=== PATIENT | male | born 1970 | race Caucasian/White ===

== ENCOUNTER 2016-07-31 01:16 | Emergency (ER) | payer OTHER ==
[2016-07-31] MEDS ORDERED: LIDOCAINE 5% (700 MG) TRANSDERMAL ADH..PATCH TP ONE (01:23)
--- NOTE | 2016-07-31 01:52 | ER Document Report ---
ED General - General Chief Complaint: Back Pain Stated Complaint: BACK PAIN TRAVEL OUTSIDE OF THE [place] IN LAST 30 DAYS: No - HPI Patient complains to provider of: right flank chest wall pain Onset: Last week Notes: Patient coming in for right flank chest wall pain. Patient states fell approximately one week ago. Patient denies any physician assessment until tonight. Patient doesn't do to drinking alcohol. Patient does have a history of alcohol abuse has been evaluated multiple times here in ER for alcohol use. Otherwise patient is alert does smell of EtOH and does look to be acutely intoxicated. Patient is able to ambulate to bathroom prior to my assessment. - Related Data Allergies/Adverse Reactions: No Known Allergies Allergy (Verified 08/05/15 17:39) Past Medical History - Social History Smoking Status: Unknown if Ever Smoked Family History: Reviewed & Not Pertinent, Hypertension - Past Medical History Cardiac Medical History: Reports: Hx Hypertension Psychiatric Medical History: Reports: Hx Depression Traumatic Medical History: Reports: Hx Fractures Past Surgical History: Reports: Hx Orthopedic Surgery - right knee - Immunizations Hx Diphtheria, Pertussis, Tetanus Vaccination: Yes Review of Systems - Review of Systems Constitutional: No symptoms reported EENT: No symptoms reported Cardiovascular: Chest pain - Right chest wall flank pain Respiratory: No symptoms reported Gastrointestinal: No symptoms reported Genitourinary: No symptoms reported Male Genitourinary: No symptoms reported Musculoskeletal: No symptoms reported Skin: No symptoms reported Hematologic/Lymphatic: No symptoms reported Neurological/Psychological: No symptoms reported Physical Exam - Vital signs Vitals: Temp Pulse Resp BP Pulse Ox 97.5 F 97 18 120/73 99 07/31/16 02:30 07/31/16 02:30 07/31/16 02:30 07/31/16 02:30 07/31/16 02:30 Interpretation: Normal - General General appearance: Appears well, Alert - HEENT Head: Normocephalic, Atraumatic Eyes: Normal Pupils: PERRL - Respiratory Respiratory status: No respiratory distress Chest status: Nontender. No: Tender, Chest mass, Ecchymosis Breath sounds: Normal Chest palpation: Normal - Cardiovascular Rhythm: Regular Heart sounds: Normal auscultation Murmur: No - Abdominal Inspection: Normal Distension: No distension Bowel sounds: Normal Tenderness: Nontender Organomegaly: No organomegaly - Back Back: Normal, Nontender - Extremities General upper extremity: Normal inspection, Nontender, Normal color, Normal ROM , Normal temperature General lower extremity: Normal inspection, Nontender, Normal color, Normal ROM , Normal temperature, Normal weight bearing. No: Filiberto's sign - Neurological Neuro grossly intact: Yes Cognition: Normal Orientation: AAOx4 John Coma Scale Eye Opening: Spontaneous [place] Coma Scale Verbal: Oriented [place] Coma Scale Motor: Obeys Commands John Coma Scale Total: 15 Speech: Normal Motor strength normal: LUE, RUE, LLE, RLE Sensory: Normal - Psychological Associated symptoms: Normal affect, Normal mood - Skin Skin Temperature: Warm Skin Moisture: Dry Skin Color: Normal Course - Re-evaluation Re-evalutation: 07/31/16 02:24 X-rays from patient unknown if any acute pathology. Physical examination other than showed the patient is acutely intoxicated with alcohol shows no critical etiology. Patient is ambulated to the bathroom multiple times with assistance. Patient is currently trying to find a ride home. Patient will be discharged home 07/31/16 07:07 - Vital Signs Vital signs: Temp Pulse Resp BP Pulse Ox 97.5 F 97 18 120/73 99 07/31/16 02:30 07/31/16 02:30 07/31/16 02:30 07/31/16 02:30 07/31/16 02:30 Discharge - Discharge Clinical Impression: Rib contusion Qualifiers: Encounter type: initial encounter Laterality: right Qualified Code(s): S20.211A - Contusion of right front wall of thorax, initial encounter Acute alcohol intoxication Qualifiers: Complication of substance-induced condition: uncomplicated Qualified Code(s): F10.120 - Alcohol abuse with intoxication, uncomplicated Condition: Good Disposition: HOME, SELF-CARE Instructions: Ice Packs ([facility]), Warm Packs ([facility]), Acute Alcohol Intoxication ( [facility]) Additional Instructions: You may take Tylenol and Motrin for pain control. He may also apply the patches for pain control as well. Return to ER symptoms worsen. Prescriptions: Ibuprofen [Motrin 600 Mg Tablet] 600 mg PO TID #15 tablet Lidocaine [Lidoderm 5% (700 mg) Transdermal Patch] 1 patch TP DAILY #30 adh..patch Referrals: [facility] [Primary Care Provider] - Follow up in 3-5 days
[2016-07-31 04:06] VITALS: BP 120/73
== END 2016-07-31 04:04 | disposition home or self-care (01) ==
LOC: ER 01:16
DX: S20.211A Contusion of right front wall of thorax, initial encounter (principal); W19.XXXA Unspecified fall, initial encounter; F10.120 Alcohol abuse with intoxication, uncomplicated; R07.89 Other chest pain; I10 Essential (primary) hypertension
CPT/HCPCS: 99283

== ENCOUNTER 2016-08-05 06:44 | Emergency (ER) | payer OTHER ==
[2016-08-05 07:18] VITALS: BP 143/89
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
[2016-08-05 07:40] LABS: ALANINE AMINOTRANSFERASE 40 U/L (21-72); ALBUMIN 5.1 g/dL (3.5-5.0); ALCOHOL 217 mg/dL (NONE DETECTED); ALKALINE PHOSPHATASE 169 U/L (38-126); ASPARTATE AMINO TRANSFERASE 29 U/L (17-59); BILIRUBIN,TOTAL 0.5 mg/dL (0.2-1.3); BLOOD UREA NITROGEN 8 mg/dL (7-20); CALCIUM 9.8 mg/dL (8.4-10.2); CARBON DIOXIDE 20 mmol/L (22-30); CREATINE KINASE 72 U/L (55-170); CREATININE RESULT 0.86 mg/dL (0.52-1.25); GLUCOSE 139 mg/dL (75-110); LIPASE 160.2 U/L (23-300); POTASSIUM 4.8 mmol/L (3.6-5.0); URIC ACID 11.1 mg/dL (3.5-8.5)
[2016-08-05 07:41] LABS: ABSOLUTE BASOPHILS # (AUTO) 0.1 10^3/uL (0.0-0.2); ABSOLUTE EOSINOPHILS # (AUTO) 0.4 10^3/uL (0.0-0.6); ABSOLUTE LYMPHOCYTES (AUTO) 3.7 10^3/uL (0.5-4.7); ABSOLUTE MONOCYTES (AUTO) 0.8 10^3/uL (0.1-1.4); ABSOLUTE NEUT (AUTO) 5.5 10^3/uL (1.7-8.2); BASOPHILS % (AUTO) 0.6 % (0-2); EOSINOPHILS % (AUTO) 4.1 % (0-6); HEMATOCRIT 47.7 % (37.9-51.0); HEMOGLOBIN 15.7 g/dL (13.5-17.0); HGB HCT DIFFERENCE -0.6; LYMPHOCYTES % (AUTO) 35.1 % (13-45); MEAN CORPUSCULAR HEMOGLOBIN 29.3 pg (27.0-33.4); MEAN CORPUSCULAR VOLUME 89 fl (80-97); MONOCYTES % (AUTO) 7.5 % (3-13); RED BLOOD COUNT 5.38 10^6/uL (4.35-5.55); SEGMENTED NEUTROPHILS % (AUTO) 52.7 % (42-78); WHITE BLOOD COUNT 10.4 10^3/uL (4.0-10.5)
[2016-08-05 07:50] LABS: CHLORIDE 100 mmol/L (98-107); SODIUM 140.5 mmol/L (137-145)
[2016-08-05 07:56] LABS: ANION GAP 21 (5-19)
[2016-08-05 08:08] LABS: CREATINE KINASE MB 0.38 ng/mL (<4.55)
[2016-08-05 08:11] LABS: TROPONIN I < 0.012 ng/mL
== END 2016-08-05 07:33 | disposition left against medical advice (07) ==
LOC: ER 06:44
DX: F10.10 Alcohol abuse, uncomplicated (principal); I10 Essential (primary) hypertension
CPT/HCPCS: 36415; 80053; 80307; 82550; 82553; 83690; 83735; 84484; 84550; 85025; 99281

== ENCOUNTER 2016-08-08 17:03 | Emergency (ER) | payer OTHER ==
[2016-08-08 17:48] VITALS: BP 130/80
--- NOTE | 2016-08-08 18:41 | EKG REPORT ---
SEVERITY:- NORMAL ECG - SINUS RHYTHM : Confirmed by: Lluvia Florian MD 08-Aug-2016 18:40:22
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
== END 2016-08-08 19:05 | disposition home or self-care (01) ==
LOC: ER 17:03
DX: S29.9XXA Unspecified injury of thorax, initial encounter (principal); R07.89 Other chest pain; R05 Cough; X58.XXXA Exposure to other specified factors, initial encounter; F17.210 Nicotine dependence, cigarettes, uncomplicated
CPT/HCPCS: 71020; 93005; 93010; 99285

== ENCOUNTER 2016-08-09 03:46 | Emergency (ER) | payer OTHER ==
[2016-08-09 04:26] LABS: ABSOLUTE BASOPHILS # (AUTO) 0.1 10^3/uL (0.0-0.2); ABSOLUTE EOSINOPHILS # (AUTO) 0.1 10^3/uL (0.0-0.6); ABSOLUTE LYMPHOCYTES (AUTO) 2.3 10^3/uL (0.5-4.7); ABSOLUTE MONOCYTES (AUTO) 0.8 10^3/uL (0.1-1.4); ABSOLUTE NEUT (AUTO) 7.2 10^3/uL (1.7-8.2); EOSINOPHILS % (AUTO) 1.3 % (0-6); HEMATOCRIT 44.6 % (37.9-51.0); HEMOGLOBIN 14.7 g/dL (13.5-17.0); HGB HCT DIFFERENCE -0.5; LYMPHOCYTES % (AUTO) 21.5 % (13-45); MEAN CORPUSCULAR HEMOGLOBIN 28.8 pg (27.0-33.4); MEAN CORPUSCULAR VOLUME 87 fl (80-97); MONOCYTES % (AUTO) 7.6 % (3-13); RED BLOOD COUNT 5.11 10^6/uL (4.35-5.55); RED CELL DISTRIBUTION WIDTH 14.2 % (11.5-14.0); SEGMENTED NEUTROPHILS % (AUTO) 68.6 % (42-78); WHITE BLOOD COUNT 10.5 10^3/uL (4.0-10.5)
[2016-08-09 04:41] LABS: ALANINE AMINOTRANSFERASE 31 U/L (21-72); ALBUMIN 4.2 g/dL (3.5-5.0); ALKALINE PHOSPHATASE 157 U/L (38-126); ANION GAP 19 (5-19); ASPARTATE AMINO TRANSFERASE 36 U/L (17-59); BILIRUBIN,TOTAL 0.6 mg/dL (0.2-1.3); BLOOD UREA NITROGEN 7 mg/dL (7-20); CALCIUM 8.5 mg/dL (8.4-10.2); CARBON DIOXIDE 20 mmol/L (22-30); CHLORIDE 99 mmol/L (98-107); CREATINE KINASE 107 U/L (55-170); CREATININE RESULT 0.68 mg/dL (0.52-1.25); GLUCOSE 171 mg/dL (75-110); POTASSIUM 3.8 mmol/L (3.6-5.0); SODIUM 137.9 mmol/L (137-145); TOTAL PROTEIN 6.7 g/dL (6.3-8.2)
[2016-08-09 04:52] LABS: CREATINE KINASE MB 0.59 ng/mL (<4.55)
[2016-08-09 04:53] LABS: TROPONIN I < 0.012 ng/mL
[2016-08-09] MEDS ORDERED: ASPIRIN 81 MG TABLET, CHEWABLE PO ONE (04:56)
[2016-08-09] MEDS ORDERED: ONDANSETRON HCL INJ/PF 4 MG/2 ML SDV IV ONE (06:40)
[2016-08-09] MEDS: NORMAL SALINE 1000 ML 1,000 ML IV PRN ×3 (06:46→07:35)
--- NOTE | 2016-08-09 07:16 | ER Document Report ---
ED General - General Chief Complaint: Chest Pain Stated Complaint: CHEST PAIN Mode of Arrival: Medic Information source: Patient, H Records Notes: 46-year-old male chronic alcoholic who is now been here multiple times in the past week with complaints of chest pain presents again with chest pain. Patient notes that he went home after being discharged and drank 4 40 ounce beers. Patient notes chest pain is sharp in nature. Patient admits that he is on alcoholic binge because he obtain money and just drink it all away TRAVEL OUTSIDE OF THE [place] IN LAST 30 DAYS: No - HPI Onset: Last week Onset/Duration: Intermittent Quality of pain: Sharp Severity: Mild Pain Level: 1 Associated symptoms: Chest pain Exacerbated by: Denies Relieved by: Denies Similar symptoms previously: Yes Recently seen / treated by doctor: Yes - Related Data Allergies/Adverse Reactions: No Known Allergies Allergy (Verified 08/05/15 17:39) Past Medical History - Social History Smoking Status: Current Every Day Smoker Cigarette use (# per day): No Chew tobacco use (# tins/day): No Smoking Education Provided: No Family History: Hypertension - Past Medical History Cardiac Medical History: Reports: Hx Hypertension Psychiatric Medical History: Reports: Hx Depression Traumatic Medical History: Reports: Hx Fractures Past Surgical History: Reports: Hx Orthopedic Surgery - right knee - Immunizations Hx Diphtheria, Pertussis, Tetanus Vaccination: Yes Review of Systems - Review of Systems Notes: REVIEW OF SYSTEMS: CONSTITUTIONAL : Denies fever, chills, or sweats. Denies recent illness. EENT: Denies eye, ear, throat, or mouth pain or symptoms. Denies nasal or sinus congestion or discharge. Denies throat, tongue, or mouth swelling or difficulty swallowing. CARDIOVASCULAR: Admits chest pain RESPIRATORY: Denies cough, cold, or chest congestion. Denies shortness of breath, difficulty breathing, or wheezing. GASTROINTESTINAL: Denies abdominal pain or distention. Denies nausea, vomiting , or diarrhea. Denies blood in vomitus, stools, or per rectum. Denies black, tarry stools. Denies constipation. GENITOURINARY: Denies difficulty urinating, painful urination, burning, frequency, blood in urine, or discharge. MUSCULOSKELETAL: Denies back or neck pain or stiffness. Denies joint pain or swelling. SKIN: Denies rash, lesions or sores. HEMATOLOGIC : Denies easy bruising or bleeding. LYMPHATIC: Denies swollen, enlarged glands. NEUROLOGICAL: Denies confusion or altered mental status. Denies passing out or loss of consciousness. Denies dizziness or lightheadedness. Denies headache. Denies weakness or paralysis or loss of use of either side. Denies problems with gait or speech. Denies sensory loss, numbness, or tingling. Denies seizures. PSYCHIATRIC: Denies anxiety or stress. Denies depression, suicidal ideation, or homicidal ideation. ALL OTHER SYSTEMS REVIEWED AND NEGATIVE. Dictation was performed using [employer] voice recognition software PHYSICAL EXAMINATION: GENERAL: Well-appearing, well-nourished and in no acute distress. HEAD: Atraumatic, normocephalic. EYES: Pupils equal round and reactive to light, extraocular movements intact, sclera anicteric, conjunctiva are normal. ENT: Nares patent, oropharynx clear without exudates. Moist mucous membranes. NECK: Normal range of motion, supple without lymphadenopathy LUNGS: Breath sounds clear to auscultation bilaterally and equal. No wheezes rales or rhonchi. HEART: Tachycardic in the 120s intermittently ABDOMEN: Soft, nontender, nondistended abdomen. No guarding, no rebound. No masses appreciated. Musculoskeletal: Normal range of motion, no pitting or edema. No cyanosis. NEUROLOGICAL: Cranial nerves grossly intact. Normal speech, normal gait. Normal sensory, motor exams PSYCH: Normal mood, normal affect. SKIN: Warm, Dry, normal turgor, no rashes or lesions noted. Physical Exam - Vital signs Vitals: Temp 98.6 F 08/09/16 03:57 Course - Re-evaluation Re-evalutation: 08/09/16 07:16 I have no suspicion for any cardiac events, patient has had cardiac enzymes trended multiple times over the past week, of more concern is his alcohol abuse. Patient is tachycardic here is not withdrawing at this time but eventually will start withdrawing. He will be given IV fluids. 08/09/16 09:19 Patient's heart rate has improved to 107, I will discharge him since he is acting at his baseline is ambulating with no difficulty has no neurological deficits and appears to be chronically intoxicated After performing a Medical Screening Examination, I estimate there is LOW risk for RUPTURED ESOPHAGUS, PNEUMOTHORAX, PULMONARY EMBOLISM, ACUTE CORONARY SYNDROME, OR THORACIC AORTIC DISSECTION, thus I consider the discharge disposition reasonable. The patient and I have discussed the diagnosis and risks , and we agree with discharging home with close follow-up. We also discussed returning to the Emergency Department immediately if new or worsening symptoms occur. We have discussed the symptoms which are most concerning (e.g., bloody sputum, worsening pain or shortness of breath) that necessitate immediate return. - Vital Signs Vital signs: Temp Pulse Resp BP Pulse Ox 98.6 F 20 160/86 H 97 08/09/16 03:57 08/09/16 09:01 08/09/16 09:01 08/09/16 09:01 - Laboratory Result Diagrams: 08/09/16 04:00 08/09/16 04:00 Laboratory results interpreted by me: 08/09/16 08/09/16 04:00 04:00 RDW 14.2 H Carbon Dioxide 20 L Glucose 171 H Alkaline Phosphatase 157 H - Diagnostic Test Radiology reviewed: Image reviewed, Reports reviewed - EKG Interpretation by Me EKG shows normal: Sinus rhythm, [place], Intervals, QRS Complexes When compared to previous EKG there are: No significant change Discharge - Discharge Clinical Impression: Alcohol abuse, Chest wall pain Alcohol intoxication Qualifiers: Complication of substance-induced condition: uncomplicated Qualified Code(s): F10.120 - Alcohol abuse with intoxication, uncomplicated Hypertension Qualifiers: Hypertension type: essential hypertension Qualified Code(s): I10 - Essential ( primary) hypertension Condition: Stable Disposition: HOME, SELF-CARE Instructions: Chest Pain of Unclear Cause ([facility]) Additional Instructions: You must decrease your alcohol abuse You must continue your home medications Return immediately if there are any other concerns
[2016-08-09 10:35] VITALS: BP 150/82
--- NOTE | 2016-08-09 14:56 | EKG REPORT ---
SEVERITY:- OTHERWISE NORMAL ECG - SINUS TACHYCARDIA : Confirmed by: Lluvia Florian MD 09-Aug-2016 14:55:27
== END 2016-08-09 10:37 | disposition home or self-care (01) ==
LOC: ER 03:46
DX: R07.89 Other chest pain (principal); F10.229 Alcohol dependence with intoxication, unspecified; F17.200 Nicotine dependence, unspecified, uncomplicated; I10 Essential (primary) hypertension; R00.0 Tachycardia, unspecified
CPT/HCPCS: 93005; 99284; 96361; 96374; 36415; 82553; 80307; 82550; 85025; 80053; 84484; 71010; 93010; J2405; J7030

== ENCOUNTER 2016-09-03 06:21 | Emergency (ER) | payer OTHER ==
[2016-09-03 07:04] VITALS: BP 124/84
[2016-09-03 07:13] LABS: ABSOLUTE BASOPHILS # (AUTO) 0.1 10^3/uL (0.0-0.2); ABSOLUTE EOSINOPHILS # (AUTO) 0.2 10^3/uL (0.0-0.6); ABSOLUTE LYMPHOCYTES (AUTO) 2.9 10^3/uL (0.5-4.7); ABSOLUTE MONOCYTES (AUTO) 1.3 10^3/uL (0.1-1.4); ABSOLUTE NEUT (AUTO) 2.7 10^3/uL (1.7-8.2); BASOPHILS % (AUTO) 1.3 % (0-2); EOSINOPHILS % (AUTO) 3.4 % (0-6); HEMATOCRIT 45.9 % (37.9-51.0); HEMOGLOBIN 15.7 g/dL (13.5-17.0); HGB HCT DIFFERENCE 1.2; LYMPHOCYTES % (AUTO) 40.1 % (13-45); MEAN CORPUSCULAR HEMOGLOBIN 29.2 pg (27.0-33.4); MEAN CORPUSCULAR HGB CONC 34.2 g/dL (32.0-36.0); MEAN CORPUSCULAR VOLUME 86 fl (80-97); MONOCYTES % (AUTO) 17.6 % (3-13); RED BLOOD COUNT 5.36 10^6/uL (4.35-5.55); RED CELL DISTRIBUTION WIDTH 13.9 % (11.5-14.0); SEGMENTED NEUTROPHILS % (AUTO) 37.6 % (42-78); WHITE BLOOD COUNT 7.2 10^3/uL (4.0-10.5)
[2016-09-03 07:17] LABS: PROTHROMBIN TIME 12.8 SEC (11.4-15.4)
[2016-09-03 07:30] LABS: ALANINE AMINOTRANSFERASE 53 U/L (21-72); ALBUMIN 4.8 g/dL (3.5-5.0); ALCOHOL 299 mg/dL (NONE DETECTED); ALKALINE PHOSPHATASE 132 U/L (38-126); ANION GAP 18 (5-19); ASPARTATE AMINO TRANSFERASE 49 U/L (17-59); BILIRUBIN,TOTAL 0.4 mg/dL (0.2-1.3); BLOOD UREA NITROGEN 12 mg/dL (7-20); CALCIUM 9.1 mg/dL (8.4-10.2); CARBON DIOXIDE 18 mmol/L (22-30); CHLORIDE 102 mmol/L (98-107); CREATINE KINASE 85 U/L (55-170); CREATININE RESULT 0.77 mg/dL (0.52-1.25); GLUCOSE 155 mg/dL (75-110); LIPASE 130.6 U/L (23-300); SODIUM 138.4 mmol/L (137-145); TOTAL PROTEIN 7.4 g/dL (6.3-8.2)
[2016-09-03 07:41] LABS: CREATINE KINASE MB 0.46 ng/mL (<4.55); TROPONIN I < 0.012 ng/mL
--- NOTE | 2016-09-03 10:38 | EKG REPORT ---
SEVERITY:- OTHERWISE NORMAL ECG - SINUS TACHYCARDIA : Confirmed by: Meli Jennings 03-Sep-2016 10:36:48
--- NOTE | 2016-09-03 14:16 | ER Document Report ---
ED General - General Chief Complaint: Chest Pain Stated Complaint: CHEST PAIN TRAVEL OUTSIDE OF THE [place] IN LAST 30 DAYS: No - HPI Patient complains to provider of: chest pain Notes: Patient coming in by EMS with acute alcohol vesication combative complaining of intermittent chest pain. Patient has had multiple visits to the ER for acute alcohol vesication chest pain. Patient states chest pain similar to that in the past. Patient was very combative towards staff initially however did come down after security arrived in bedside. EKG was performed blood work performed. Upon my evaluation patient is sitting of yesterday requesting to go smoke a cigarette. Spent patient that we would need to evaluate him for his chest pain patient agrees for examination. Patient is alert and oriented 3 - Related Data Allergies/Adverse Reactions: No Known Allergies Allergy (Verified 08/05/15 17:39) Past Medical History - Social History Smoking Status: Unknown if Ever Smoked Family History: Hypertension - Past Medical History Cardiac Medical History: Reports: Hx Hypertension Psychiatric Medical History: Reports: Hx Depression Traumatic Medical History: Reports: Hx Fractures Past Surgical History: Reports: Hx Orthopedic Surgery - right knee - Immunizations Hx Diphtheria, Pertussis, Tetanus Vaccination: Yes Review of Systems - Review of Systems Constitutional: No symptoms reported EENT: No symptoms reported Cardiovascular: Chest pain Respiratory: No symptoms reported Gastrointestinal: No symptoms reported Genitourinary: No symptoms reported Male Genitourinary: No symptoms reported Musculoskeletal: No symptoms reported Skin: No symptoms reported Hematologic/Lymphatic: No symptoms reported Neurological/Psychological: Other - Alcoholism -: Yes All other systems reviewed and negative Physical Exam - Vital signs Vitals: Temp Resp BP Pulse Ox 98.2 F 16 140/89 H 98 09/03/16 06:32 09/03/16 06:32 09/03/16 06:32 09/03/16 06:32 Interpretation: Normal - General General appearance: Appears well, Alert - HEENT Head: Normocephalic, Atraumatic Eyes: Normal Pupils: PERRL - Respiratory Respiratory status: No respiratory distress Chest status: Nontender Breath sounds: Normal Chest palpation: Normal - Cardiovascular Rhythm: Regular Heart sounds: Normal auscultation Murmur: No - Abdominal Inspection: Normal Distension: No distension Bowel sounds: Normal Tenderness: Nontender Organomegaly: No organomegaly - Back Back: Normal, Nontender - Extremities General upper extremity: Normal inspection, Nontender, Normal color, Normal ROM , Normal temperature General lower extremity: Normal inspection, Nontender, Normal color, Normal ROM , Normal temperature, Normal weight bearing. No: Filiberto's sign - Neurological Neuro grossly intact: Yes Cognition: Normal Orientation: AAOx4 [place] Coma Scale Eye Opening: Spontaneous John Coma Scale Verbal: Oriented John Coma Scale Motor: Obeys Commands [place] Coma Scale Total: 15 Speech: Normal Motor strength normal: LUE, RUE, LLE, RLE Sensory: Normal - Psychological Associated symptoms: Normal affect, Normal mood - Skin Skin Temperature: Warm Skin Moisture: Dry Skin Color: Normal Course - Re-evaluation Re-evalutation: 09/03/16 14:15 After examination patient is requesting to leave against medical advise. Patient is alert and oriented 3 although stating he is drink alcohol. Patient at this time is able to make medical decisions. Patient looks to be clinically sober. Patient has a chronic alcoholic. Patient requesting to go outside and smoke. Encouraged patient states further workup explained risk and benefits patient states understanding patient's stay would rather go outside and smoke. Patient signed out AGAINST MEDICAL ADVICE - Vital Signs Vital signs: Temp Pulse Resp BP Pulse Ox 98.2 F 16 124/84 95 09/03/16 06:32 09/03/16 06:32 09/03/16 06:45 09/03/16 06:45 - Laboratory Result Diagrams: 09/03/16 06:37 09/03/16 06:37 Laboratory results interpreted by me: 09/03/16 09/03/16 06:37 06:37 Seg Neutrophils % 37.6 L Monocytes % 17.6 H Carbon Dioxide 18 L Glucose 155 H Alkaline Phosphatase 132 H Discharge - Discharge Clinical Impression: Alcohol intoxication Qualifiers: Complication of substance-induced condition: with unspecified complication Qualified Code(s): F10.129 - Alcohol abuse with intoxication, unspecified Chest pain Qualifiers: Chest pain type: unspecified Qualified Code(s): R07.9 - Chest pain, unspecified Condition: Stable Disposition: ELOPED
--- NOTE | 2016-09-03 21:54 | EKG REPORT ---
SEVERITY:- OTHERWISE NORMAL ECG - SINUS TACHYCARDIA : Confirmed by: Meli Jennings 03-Sep-2016 21:53:12
== END 2016-09-03 07:02 | disposition left against medical advice (07) ==
LOC: ER 06:21
DX: R07.9 Chest pain, unspecified (principal); F10.229 Alcohol dependence with intoxication, unspecified; I10 Essential (primary) hypertension; F17.200 Nicotine dependence, unspecified, uncomplicated; Z53.29 Procedure and treatment not carried out because of patient's decision for other reasons
CPT/HCPCS: 36415; 80053; 80307; 82550; 82553; 83690; 84484; 85025; 85610; 93005; 93010; 99285

== ENCOUNTER 2016-09-03 09:52 | Emergency (ER) | payer OTHER ==
--- NOTE | 2016-09-03 10:16 | ER Document Report ---
ED Cardiac - General Stated Complaint: CHEST PAIN Mode of Arrival: Medic Information source: Patient, Emergency Med Personnel TRAVEL OUTSIDE OF THE [place] IN LAST 30 DAYS: No - HPI Patient complains to provider of: Chest pain Similar symptoms previously: Yes Recently seen / treated by doctor: Yes - JENIFER Tovar, EARLIER THIS DATE - Related Data Allergies/Adverse Reactions: No Known Allergies Allergy (Verified 08/05/15 17:39) Past Medical History - General Information source: Patient - Social History Smoking Status: Current Every Day Smoker Cigarette use (# per day): Yes Smoking Education Provided: No Family History: Hypertension - Past Medical History Cardiac Medical History: Reports: Hx Hypertension Psychiatric Medical History: Reports: Hx Depression Traumatic Medical History: Reports: Hx Fractures Past Surgical History: Reports: Hx Orthopedic Surgery - right knee - Immunizations Hx Diphtheria, Pertussis, Tetanus Vaccination: Yes Physical Exam - Vital signs Notes: Patient left the department AGAINST MEDICAL ADVICE, did not stay for evaluation and exam. Course - Re-evaluation Re-evalutation: 09/03/16 10:13 Shortly after arrival, the patient was was observed smoking a cigarette in room 17. He was forced to surrender the cigarette, whereupon he stated he was going to leave the department AGAINST MEDICAL ADVICE. He appeared to be alert and oriented, and cognizant of the fact that failure to undergo a complete evaluation of his chest pain could result in serious or even lethal consequences. - EKG Interpretation by Me EKG shows normal: Sinus rhythm, [place], Intervals, QRS Complexes, ST-T Waves Rate: Tachycardia Discharge - Discharge Clinical Impression: Chest pain Condition: Good Disposition: AGAINST MEDICAL ADVICE
[2016-09-03 10:26] VITALS: BP 141/93
== END 2016-09-03 10:11 | disposition left against medical advice (07) ==
LOC: ER 09:52
DX: R07.9 Chest pain, unspecified (principal); F17.210 Nicotine dependence, cigarettes, uncomplicated; I10 Essential (primary) hypertension; R00.0 Tachycardia, unspecified; Z53.29 Procedure and treatment not carried out because of patient's decision for other reasons
CPT/HCPCS: 99284

== ENCOUNTER 2016-09-03 11:59 | Emergency (ER) | payer OTHER ==
--- NOTE | 2016-09-03 14:21 | ER Document Report ---
ED General - General Stated Complaint: CHEST PAIN TRAVEL OUTSIDE OF THE [place] IN LAST 30 DAYS: No - HPI Patient complains to provider of: chest pain Notes: This is now the patient's third visit today patient now coming in via EMS escorted by the local law enforcement. I was notified by the nursing staff that the patient is requesting to sign out AGAINST MEDICAL ADVICE and to leave with law enforcement. - Related Data Allergies/Adverse Reactions: No Known Allergies Allergy (Verified 08/05/15 17:39) Past Medical History - Social History Smoking Status: Unknown if Ever Smoked Family History: Hypertension - Past Medical History Cardiac Medical History: Reports: Hx Hypertension Psychiatric Medical History: Reports: Hx Depression Traumatic Medical History: Reports: Hx Fractures Past Surgical History: Reports: Hx Orthopedic Surgery - right knee - Immunizations Hx Diphtheria, Pertussis, Tetanus Vaccination: Yes Review of Systems - Review of Systems -: Yes ROS unobtainable due to patient's medical condition Course - Re-evaluation Re-evalutation: 09/03/16 14:19 This is the third time the patient has came to the ER today. Patient again has complaints of chest pain. I was notified by the nursing staff that the patient is with local law enforcement and is refusing any treatment here in the ER and wishes to sign out AGAINST MEDICAL ADVICE. Patient understands that he will be leaving with law enforcement Patient was not formally evaluated by this physician. I was only notified by nursing staff. Patient had left with law enforcement prior to me being able to evaluate the patient. No physical examination was performed no face to face history of present illness was obtained from the patient Patient did sign AMA forms from the nurse Discharge - Discharge Disposition: AGAINST MEDICAL ADVICE
== END 2016-09-03 12:09 | disposition left against medical advice (07) ==
LOC: ER 11:59
DX: R07.9 Chest pain, unspecified (principal); I10 Essential (primary) hypertension; Z53.20 Procedure and treatment not carried out because of patient's decision for unspecified reasons
CPT/HCPCS: 99281

== ENCOUNTER 2016-09-29 09:33 | Emergency (ER) | payer OTHER ==
[2016-09-29 10:55] LABS: ABSOLUTE BASOPHILS # (AUTO) 0.1 10^3/uL (0.0-0.2); ABSOLUTE EOSINOPHILS # (AUTO) 0.2 10^3/uL (0.0-0.6); ABSOLUTE LYMPHOCYTES (AUTO) 3.7 10^3/uL (0.5-4.7); ABSOLUTE MONOCYTES (AUTO) 0.6 10^3/uL (0.1-1.4); ABSOLUTE NEUT (AUTO) 5.8 10^3/uL (1.7-8.2); BASOPHILS % (AUTO) 1.1 % (0-2); EOSINOPHILS % (AUTO) 1.5 % (0-6); HEMATOCRIT 45.2 % (37.9-51.0); HEMOGLOBIN 15.9 g/dL (13.5-17.0); HGB HCT DIFFERENCE 2.5; LYMPHOCYTES % (AUTO) 35.7 % (13-45); MEAN CORPUSCULAR HEMOGLOBIN 29.7 pg (27.0-33.4); MEAN CORPUSCULAR HGB CONC 35.1 g/dL (32.0-36.0); MEAN CORPUSCULAR VOLUME 85 fl (80-97); MONOCYTES % (AUTO) 5.7 % (3-13); RED BLOOD COUNT 5.35 10^6/uL (4.35-5.55); RED CELL DISTRIBUTION WIDTH 13.9 % (11.5-14.0); WHITE BLOOD COUNT 10.3 10^3/uL (4.0-10.5)
[2016-09-29 10:55] LABS: APPEARANCE,URINE CLEAR; BILIRUBIN,URINE NEGATIVE (NEGATIVE); GLUCOSE, URINE 50 mg/dL (NEGATIVE); KETONES,URINE TRACE mg/dL (NEGATIVE); LEUKOCYTE ESTERASE,URINE NEGATIVE (NEGATIVE); NITRITE,URINE NEGATIVE (NEGATIVE); PROTEIN,URINE NEGATIVE (NEGATIVE); URINE SPECIFIC GRAVITY 1.004; UROBILINOGEN,URINE NEGATIVE mg/dL (<2.0)
--- NOTE | 2016-09-29 11:08 | ER Document Report ---
ED General - General Chief Complaint: Psych Problem Stated Complaint: IVC WITH PAPERS Mode of Arrival: Ambulatory Information source: Patient, Law Enforcement, [facility] Records Notes: This is a 46-year-old male with a history of chronic alcoholism who presents for evaluation after his mother took out IVC paperwork on him. Apparently the patient has been on a drinking binge for the past week. Patient states that he was sober for 3 weeks prior to that but after getting into an argument with his family decided to drink again. At this time he is denying any suicidal or homicidal ideation and states he just wants to go home to sleep. He denies any fevers chills or recent illness. He denies any pain. He is conversant and cooperative with the interview. TRAVEL OUTSIDE OF THE [place] IN LAST 30 DAYS: No - Related Data Allergies/Adverse Reactions: No Known Allergies Allergy (Verified 09/29/16 10:16) Past Medical History - General Information source: [facility] Records - Social History Smoking Status: Current Every Day Smoker Frequency of alcohol use: Heavy Family History: Hypertension - Past Medical History Cardiac Medical History: Reports: Hx Hypertension Psychiatric Medical History: Reports: Hx Depression Traumatic Medical History: Reports: Hx Fractures Past Surgical History: Reports: Hx Orthopedic Surgery - right knee - Immunizations Hx Diphtheria, Pertussis, Tetanus Vaccination: Yes Review of Systems - Review of Systems Constitutional: No symptoms reported. denies: Chills, Fever EENT: No symptoms reported Cardiovascular: No symptoms reported. denies: Chest pain, Dyspnea Respiratory: No symptoms reported. denies: Cough, Short of breath Gastrointestinal: No symptoms reported. denies: Abdominal pain, Diarrhea, Vomiting Genitourinary: denies: Burning Musculoskeletal: No symptoms reported Skin: No symptoms reported Neurological/Psychological: No symptoms reported Physical Exam - Vital signs Vitals: Temp Pulse Resp BP Pulse Ox 98.3 F 95 18 140/83 H 96 09/29/16 10:00 09/29/16 10:00 09/29/16 10:00 09/29/16 10:00 09/29/16 10:00 - Notes Notes: PHYSICAL EXAMINATION: GENERAL: well-nourished and in no acute distress, smells of ETOH, conversant and cooperative. HEAD: Atraumatic, normocephalic. EYES: Pupils equal round and reactive to light, extraocular movements intact, sclera anicteric, conjunctiva are normal. ENT: nares patent, oropharynx clear without exudates. Moist mucous membranes. NECK: Normal range of motion, supple without lymphadenopathy LUNGS: Breath sounds clear to auscultation bilaterally and equal. No wheezes rales or rhonchi. HEART: Regular rate and rhythm without murmurs ABDOMEN: Soft, nontender, normoactive bowel sounds. No guarding, no rebound. No masses appreciated. EXTREMITIES: Normal range of motion, no pitting or edema. NEUROLOGICAL: Cranial nerves grossly intact. Alert and oriented 4. No gross focal motor or sensory deficit appreciated PSYCH: Normal mood, normal affect. SKIN: Warm, Dry, normal turgor, no rashes or lesions noted. Course - Re-evaluation Re-evalutation: 09/29/16 14:51 Patient has remained hemodynamically stable and cooperative in the emergency department. He has been evaluated by the psychiatry service and at this time there is no criteria for involuntary commitment. His papers are rescinded. He already [place] resources [place] and agrees to follow up with mental health services. Return precautions were discussed. He is very comfortable with this plan. Again he denies any suicidal or homicidal ideation. - Vital Signs Vital signs: Temp Pulse Resp BP Pulse Ox 98.3 F 95 18 140/83 H 96 09/29/16 10:00 09/29/16 10:00 09/29/16 10:00 09/29/16 10:00 09/29/16 10:00 - Laboratory Result Diagrams: 09/29/16 10:28 09/29/16 10:28 Laboratory results interpreted by me: 09/29/16 09/29/16 10:16 10:28 Sodium 136.3 L Chloride 93 L Anion Gap 20 H Glucose 167 H Alkaline Phosphatase 150 H Total Protein 8.4 H Albumin 5.2 H Urine Glucose (UA) 50 H Urine Ketones TRACE H Urine Blood SMALL H - EKG Interpretation by Me Additional EKG results interpreted by me: 09/29/16 14:54 EKG at 1034 demonstrates normal sinus rhythm with a rate of 90. Normal QRS and QTc intervals. There are no ST segment depressions or elevations. Discharge - Discharge Clinical Impression: Alcohol intoxication Condition: Stable Disposition: HOME, SELF-CARE Additional Instructions: ACUTE ALCOHOL INTOXICATION and ALCOHOL ABUSE: Your evaluation revealed very high levels of alcohol. You can from drinking a large amount of alcohol rapidly! Further, there's the risk of falls , traffic accidents, and fights. A high portion (about 50 percent) of the serious injuries seen in hospital emergency rooms are caused by alcohol. Alcohol overdosage is usually due to an underlying emotional or psychiatric problem. You may benefit from counselling. If "binge" drinking is an ongoing problem for you, or if you drink ANY AMOUNT of alcohol EVERY day, you most likely have a tendency to alcoholism. You should avoid alcohol totally. We can refer you for treatment. Persons with alcohol problems are often also prone to other addictions -- you should discuss any use of medications or drugs with the doctor. You should be watched at home for the next several hours by someone who has not been drinking. Get extra fluids for the next 24 hours. Call the doctor if there is repeated vomiting, increasing headache, decreasing level of alertness, or any other worsening. CHRONIC ALCOHOLISM and ALCOHOL ABUSE: Your evaluation reveals evidence of chronic alcoholism, an addiction to alcohol. The tendency to alcoholism may be inherited. Chronic use of alcohol weakens muscles, causes fatty deposits in the liver , damages the stomach, makes you more prone to infections, and can cause defects in unborn children. In the long run, brain atrophy and cirrhosis of the liver result. You are also at greater risk for certain types of cancer, such as cancer of the mouth, throat, stomach, and liver. Counselling services are available to help you. In-hospital treatment programs often help. Support groups such as Alcoholics Anonymous can be very useful in beating this addiction. Your physician can make a referral for you. As alcoholics often are prone to other addictions, you should discuss your use of any other medications with the doctor. FOLLOW-UP CARE: If you have been referred to a physician for follow-up care, call the physician s office for an appointment as you were instructed or within the next two days. If you experience worsening or a significant change in your symptoms, notify the physician immediately or return to the Emergency Department at any time for re-evaluation.
[2016-09-29 11:14] LABS: ALANINE AMINOTRANSFERASE 39 U/L (21-72); ALBUMIN 5.2 g/dL (3.5-5.0); ALCOHOL 282 mg/dL (NONE DETECTED); ALKALINE PHOSPHATASE 150 U/L (38-126); ASPARTATE AMINO TRANSFERASE 49 U/L (17-59); BILIRUBIN,TOTAL 0.8 mg/dL (0.2-1.3); BLOOD UREA NITROGEN 10 mg/dL (7-20); CALCIUM 10.2 mg/dL (8.4-10.2); CARBON DIOXIDE 23 mmol/L (22-30); CHLORIDE 93 mmol/L (98-107); CREATININE RESULT 0.61 mg/dL (0.52-1.25); GLUCOSE 167 mg/dL (75-110); MAGNESIUM 2.2 mg/dL (1.6-2.3); POTASSIUM 4.7 mmol/L (3.6-5.0); TOTAL PROTEIN 8.4 g/dL (6.3-8.2)
[2016-09-29 11:21] LABS: URINE BARBITURATES SCREEN NEGATIVE; URINE METHADONE SCREEN NEGATIVE; URINE OPIATES LOW NEGATIVE; URINE PHENCYCLIDINE SCREEN NEGATIVE
[2016-09-29 11:28] LABS: SODIUM 136.3 mmol/L (137-145)
[2016-09-29 11:31] LABS: ANION GAP 20 (5-19)
[2016-09-29 15:51] VITALS: BP 167/92
--- NOTE | 2016-09-29 15:51 | PSYCHOLOGICAL NOTE ---
Psych Note - Psych Note Psych Note: Patient presented to [facility] ED with a history of chronic alcoholism who presents for evaluation after his mother took out IVC paperwork on him. Apparently the patient has been on a drinking binge for the past week. Patient states that he was sober for 3 weeks prior to that but after getting into an argument with his family decided to drink again. At this time he is denying any suicidal or homicidal ideation and states he just wants to go home to sleep. Patient disclosed that he had been on a drinking binge for 5 days. He states that he does receive services through [facility] [employer]. He states that he will has an appointment with them next week. Patient states that he has no interest in killing himself or harming others. Patient states that he is just been drunk. Patient agrees that this is a problem and was willing to accept local resource list in case he wanted to try alternate providers. Patient is alert and orientated to person place time and circumstance. Mood is euthymic with congruent affect. Patient denies suicidal and homicidal ideation. Patient denies auditory and visual hallucinations; no delusions are noted. Thought process is logical organized and linear. Conversational speech was within normal rate tone and prosody. Eye contact was well maintained. Intellectual abilities appear to be within average range. Attention and concentration are good. Insight, judgment, impulse control are poor. 303.90 (F10.20) Alcohol use disorder; severe. Impression\plan: Patient is commended for rescind of IVC is considered psychiatrically cleared for discharge. Patient has superintendent terminal substance abuse; alcoholism. Patient states he receives outpatient services through [facility] [employer] services is recommended to return for further assistance. Patient admits that he has been in a five-day binge but adamantly denies suicidal ideation. Patient does not meet IVC criteria per [place] GS 122C. Dr. [place] was consulted and care management of this patient; attending physician is in agreement with recommendations and disposition.
--- NOTE | 2016-09-30 16:06 | EKG REPORT ---
SEVERITY:- NORMAL ECG - SINUS RHYTHM : Confirmed by: Lluvia Florian MD 30-Sep-2016 16:05:17
== END 2016-09-29 15:49 | disposition home or self-care (01) ==
LOC: ER 09:33
DX: F10.229 Alcohol dependence with intoxication, unspecified (principal); F17.200 Nicotine dependence, unspecified, uncomplicated; I10 Essential (primary) hypertension
CPT/HCPCS: 36415; 80053; 80307; 81001; 83735; 85025; 93005; 93010; 99285

== ENCOUNTER 2016-10-20 08:28 | Emergency (ER) | payer OTHER ==
[2016-10-20] MEDS ORDERED: ATENOLOL 50 MG TABLET PO ONE (09:17)
--- NOTE | 2016-10-20 09:21 | ER Document Report ---
HPI - HPI Patient complains to provider of: medication refill Pain Level: 0 Context: Patient is a 46-year-old male presents emergency department for medication refill. Patient sees [facility] for primary care but they state that they will not refill his medications until they see him on November 30 in the office. Patient states that he ran out of his medication yesterday. Otherwise he denies any pain or any other symptoms. Medical history significant for hypertension. History of alcohol abuse. - REPRODUCTIVE Reproductive: DENIES: : - DERM Skin Color: Normal Past Medical History - Social History Smoking Status: Current Every Day Smoker Family History: Hypertension Patient has suicidal ideation: No Patient has homicidal ideation: No - Past Medical History Cardiac Medical History: Reports: Hx Hypertension Renal/ Medical History: Denies: Hx Peritoneal Dialysis Psychiatric Medical History: Reports: Hx Depression Traumatic Medical History: Reports: Hx Fractures Past Surgical History: Reports: Hx Orthopedic Surgery - right knee - Immunizations Hx Diphtheria, Pertussis, Tetanus Vaccination: Yes Vertical Provider Document - CONSTITUTIONAL Agree With Documented VS: Yes Exam Limitations: No Limitations General Appearance: WD/WN, No Apparent Distress Notes: PHYSICAL EXAM GENERAL: Alert, interacts well. HEAD: Normocephalic, atraumatic. EYES: Pupils equal, round, and reactive to light. Extraocular movements intact. ENT: Oral mucosa moist, tongue midline. NECK: Full range of motion. Supple. Trachea midline. LUNGS: Clear to auscultation bilaterally, no wheezes, rales, or rhonchi. No respiratory distress. HEART: Regular rate and rhythm. No murmurs, gallops, or rubs. ABDOMEN: Soft, nondistended, nontender. No guarding, rebound, or rigidity.. Bowel sounds present in all 4 quadrants. EXTREMITIES: Moves all 4 extremities spontaneously. No edema, radial and dorsalis pedis pulses 2/4 bilaterally. No cyanosis. NEUROLOGICAL: Alert and oriented x4. Normal speech. PSYCH: Normal affect, normal mood. SKIN: Warm, dry, normal turgor. No rashes or lesions noted. - INFECTION CONTROL TRAVEL OUTSIDE OF THE [place] IN LAST 30 DAYS: No - RESPIRATORY O2 Sat by Pulse Oximetry: 99 - CARDIOVASCULAR Cardiovascular: Tachycardia - Patient initially tachycardic on presentation. After receiving his atenolol his heart rate was witnessed to go down to high 90s. Course - Re-evaluation Re-evalutation: 10/20/16 14:02 Patient given one-month prescription for atenolol 50 mg once daily. Told him to keep his appointment with [facility] to follow up with management of high blood pressure - Vital Signs Vital signs: Temp Pulse Resp BP Pulse Ox 97.8 F 125 H 18 153/91 H 99 10/20/16 08:37 10/20/16 08:37 10/20/16 08:37 10/20/16 08:37 10/20/16 08:37 Discharge - Discharge Clinical Impression: Medication refill, Hypertension Condition: Good Disposition: HOME, SELF-CARE Instructions: High Blood Pressure ([facility]) Additional Instructions: Please take your medication as prescribed Be sure to follow-up with your primary care physician on November 30. Prescriptions: Atenolol 50 mg PO DAILY #30 tablet Forms: Smoking Cessation Education Referrals: [facility] [NO LOCAL MD] - Follow up in 1 month
[2016-10-20 09:56] VITALS: BP 153/79
== END 2016-10-20 09:58 | disposition home or self-care (01) ==
LOC: ER 08:28
DX: I10 Essential (primary) hypertension (principal); F17.200 Nicotine dependence, unspecified, uncomplicated
CPT/HCPCS: 99281

== ENCOUNTER 2016-11-12 11:10 | Emergency (ER) | payer OTHER ==
--- NOTE | 2016-11-12 11:42 | ER Document Report ---
ED General - General Chief Complaint: Chest Wall Pain Stated Complaint: CHEST PAIN Mode of Arrival: Medic Information source: Patient, [facility] Records Cannot obtain history due to: Intoxicated Notes: 46-year-old male who is chronically intoxicated who presents often with complaints of chest pain presents with concerns of intoxication. Patient states he has no chest pain states his mother called EMS on him because he was drinking. Patient wishes to leave prior to evaluation. I pleaded with the patient multiple times to please allow us to have a skin EKG, he continues to stand up and be verbally abusive. Security was called to assist and they're unable to keep the patient cough, I have requested police being involved so at least an EKG can be performed. TRAVEL OUTSIDE OF THE [place] IN LAST 30 DAYS: No - HPI Onset: Just prior to arrival Onset/Duration: Sudden Quality of pain: No pain Severity: None Pain Level: Denies Associated symptoms: None Exacerbated by: Denies Relieved by: Denies Similar symptoms previously: Yes Recently seen / treated by doctor: Yes - Related Data Allergies/Adverse Reactions: No Known Allergies Allergy (Verified 10/20/16 08:36) Past Medical History - Social History Smoking Status: Current Every Day Smoker Cigarette use (# per day): Yes Chew tobacco use (# tins/day): No Smoking Education Provided: No Frequency of alcohol use: Heavy Family History: Hypertension - Past Medical History Cardiac Medical History: Reports: Hx Hypertension Renal/ Medical History: Denies: Hx Peritoneal Dialysis Psychiatric Medical History: Reports: Hx Depression Traumatic Medical History: Reports: Hx Fractures Past Surgical History: Reports: Hx Orthopedic Surgery - right knee - Immunizations Hx Diphtheria, Pertussis, Tetanus Vaccination: Yes Review of Systems - Review of Systems Notes: REVIEW OF SYSTEMS: CONSTITUTIONAL : Denies fever, chills, or sweats. Denies recent illness. EENT: Denies eye, ear, throat, or mouth pain or symptoms. Denies nasal or sinus congestion or discharge. Denies throat, tongue, or mouth swelling or difficulty swallowing. CARDIOVASCULAR: Denies chest pain. Denies palpitations or racing or irregular heart beat. Denies ankle edema. RESPIRATORY: Denies cough, cold, or chest congestion. Denies shortness of breath, difficulty breathing, or wheezing. GASTROINTESTINAL: Denies abdominal pain or distention. Denies nausea, vomiting , or diarrhea. Denies blood in vomitus, stools, or per rectum. Denies black, tarry stools. Denies constipation. GENITOURINARY: Denies difficulty urinating, painful urination, burning, frequency, blood in urine, or discharge. MUSCULOSKELETAL: Denies back or neck pain or stiffness. Denies joint pain or swelling. SKIN: Denies rash, lesions or sores. HEMATOLOGIC : Denies easy bruising or bleeding. LYMPHATIC: Denies swollen, enlarged glands. NEUROLOGICAL: Denies confusion or altered mental status. Denies passing out or loss of consciousness. Denies dizziness or lightheadedness. Denies headache. Denies weakness or paralysis or loss of use of either side. Denies problems with gait or speech. Denies sensory loss, numbness, or tingling. Denies seizures. PSYCHIATRIC: Admits to intoxication ALL OTHER SYSTEMS REVIEWED AND NEGATIVE. Dictation was performed using [employer] voice recognition software PHYSICAL EXAMINATION: GENERAL: Well-appearing, well-nourished and in no acute distress. Patient is intoxicated HEAD: Atraumatic, normocephalic. EYES: Pupils equal round and reactive to light, extraocular movements intact, sclera anicteric, conjunctiva are normal. ENT: Nares patent, oropharynx clear without exudates. Moist mucous membranes. NECK: Normal range of motion, supple without lymphadenopathy LUNGS: Breath sounds clear to auscultation bilaterally and equal. No wheezes rales or rhonchi. HEART: Regular rate and rhythm without murmurs ABDOMEN: Soft, nontender, nondistended abdomen. No guarding, no rebound. No masses appreciated. Musculoskeletal: Normal range of motion, no pitting or edema. No cyanosis. NEUROLOGICAL: Cranial nerves grossly intact. Normal speech, normal gait. Normal sensory, motor exams PSYCH: Patient is aggressive SKIN: Warm, Dry, normal turgor, no rashes or lesions noted. Physical Exam - Vital signs Vitals: Temp Pulse Resp BP Pulse Ox 97.9 F 129 H 18 143/90 H 96 11/12/16 11:20 11/12/16 11:20 11/12/16 11:20 11/12/16 11:20 11/12/16 11:20 Course - Re-evaluation Re-evalutation: 11/12/16 11:42 Patient's EKG was performed with please presents, is noted to be tachycardic and I-123, it appears his previous viral signs are consistent with tachycardia. I believe this is secondary to alcohol abuse and agitation. Given the patient does not wish to stay any further and is at his baseline intoxication I will allow him to be discharged with the understanding that he has a ride to go home with and is not driving himself or placing himself in any further risk. Patient has been seen for chest pain extensively in the emergency department has had an extensive workup and no life-threatening issues are noted. Given that he denies any chest pain at this time I will allow him to be discharged After performing a Medical Screening Examination, I estimate there is LOW risk for RUPTURED ESOPHAGUS, PNEUMOTHORAX, PULMONARY EMBOLISM, ACUTE CORONARY SYNDROME, OR THORACIC AORTIC DISSECTION, thus I consider the discharge disposition reasonable. I have reevaluated this patient multiple times and no significant life threatening changes are noted. The patient and I have discussed the diagnosis and risks, and we agree with discharging home with close follow-up. We also discussed returning to the Emergency Department immediately if new or worsening symptoms occur. We have discussed the symptoms which are most concerning (e.g., bloody sputum, worsening pain or shortness of breath) that necessitate immediate return. - Vital Signs Vital signs: Temp Pulse Resp BP Pulse Ox 97.9 F 129 H 18 143/90 H 96 11/12/16 11:20 11/12/16 11:20 11/12/16 11:20 11/12/16 11:20 11/12/16 11:20 - EKG Interpretation by Me EKG shows normal: Sinus rhythm, [place], Intervals, QRS Complexes Rate: Tachycardia Discharge - Discharge Clinical Impression: Alcohol intoxication Qualifiers: Complication of substance-induced condition: with unspecified complication Qualified Code(s): F10.129 - Alcohol abuse with intoxication, unspecified Condition: Stable Disposition: HOME, SELF-CARE Instructions: Chronic Alcoholism ([facility]) Additional Instructions: Follow-up with patient ambassador immediately
[2016-11-12 12:08] VITALS: BP 138/98
--- NOTE | 2016-11-12 22:50 | EKG REPORT ---
SEVERITY:- OTHERWISE NORMAL ECG - SINUS TACHYCARDIA : Confirmed by: Meli Jennings 12-Nov-2016 22:48:57
== END 2016-11-12 11:48 | disposition home or self-care (01) ==
LOC: ER 11:10
DX: F10.129 Alcohol abuse with intoxication, unspecified (principal); R07.9 Chest pain, unspecified; F17.210 Nicotine dependence, cigarettes, uncomplicated; I10 Essential (primary) hypertension; R00.0 Tachycardia, unspecified
CPT/HCPCS: 93005; 93010; 99285

== ENCOUNTER 2016-11-20 04:45 | Emergency (ER) | payer OTHER ==
[2016-11-20] MEDS ORDERED: ASPIRIN 81 MG TABLET, CHEWABLE PO ONE (05:09)
--- NOTE | 2016-11-20 05:13 | ER Document Report ---
ED General - General Chief Complaint: Chest Pressure Stated Complaint: CHEST WALL PAIN Mode of Arrival: Medic Information source: Patient Notes: Patient is well known to the ED for coming to the ED for c/o chest pain while being intoxicated. Patient presents today with complaints of chest pain left- sided and right knee pain. Patient reports history of chest pain. Denies history of HI. Reports this chest pain started tonight. Patient reports he has had a couple 40s tonight. History of EtOH abuse. Denies other symptoms such as fever vomiting diarrhea. Denies SOB. Reports history of surgery to his right leg last year with screws and tony placed. Denies fall tonight. Patient is obviously intoxicated but calm. TRAVEL OUTSIDE OF THE [place] IN LAST 30 DAYS: No - HPI Onset: Just prior to arrival Onset/Duration: Sudden Severity: None - NO PAIN NOW Associated symptoms: Chest pain Exacerbated by: Denies Relieved by: Denies Similar symptoms previously: No Recently seen / treated by doctor: No - Related Data Allergies/Adverse Reactions: No Known Allergies Allergy (Verified 10/20/16 08:36) Past Medical History - General Information source: Patient - Social History Smoking Status: Current Every Day Smoker Cigarette use (# per day): Yes Frequency of alcohol use: Heavy Drug Abuse: None Occupation: None Lives with: Alone Family History: Hypertension - Past Medical History Cardiac Medical History: Reports: Hx Hypertension Renal/ Medical History: Denies: Hx Peritoneal Dialysis Psychiatric Medical History: Reports: Hx Depression Traumatic Medical History: Reports: Hx Fractures Past Surgical History: Reports: Hx Orthopedic Surgery - right knee - Immunizations Hx Diphtheria, Pertussis, Tetanus Vaccination: Yes Review of Systems - Review of Systems Notes: Review HPI for review of systems., All other systems negative Physical Exam - Notes Notes: PHYSICAL EXAMINATION: GENERAL: nontoxic looking, +etoh HEAD: Atraumatic, normocephalic. EYES: Pupils equal round and reactive to light, extraocular movements intact, sclera anicteric, conjunctiva are normal. ENT: nares patent, oropharynx clear without exudates. Moist mucous membranes. widespread dental decay NECK: Normal range of motion, supple without lymphadenopathy LUNGS: CTAB and equal. No wheezes rales or rhonchi. nontender to palpation HEART: Regular rate and rhythm without murmurs ABDOMEN: Soft, no tenderness. No guarding, no rebound EXTREMITIES: Normal range of motion, no pitting edema. No cyanosis. c/o right knee pain NEUROLOGICAL: Cranial nerves grossly intact. Normal sensory/motor exams. PSYCH: Normal mood, normal affect. SKIN: Warm, Dry, normal turgor, no rashes or lesions noted Course - Re-evaluation Re-evalutation: 11/20/16 05:15 Patient instructed on plan of care to include workup for HI. 11/20/16 06:54 Pt denies chest pain, reports he needs to leave because he has to be in court for trespressing. Reviewed labs and ekg with dr hill, agrees with plan to discharge - Laboratory Result Diagrams: 11/20/16 05:45 11/20/16 05:45 Laboratory results interpreted by me: 11/20/16 11/20/16 05:45 05:45 Hgb 13.4 L Glucose 179 H - EKG Interpretation by Ok EKG shows normal: Sinus rhythm Discharge - Discharge Clinical Impression: Chest pain, ETOH abuse Condition: Stable Disposition: HOME, SELF-CARE Instructions: Chest Pain of Unclear Cause ([facility]), Chronic Alcoholism ([facility]) Additional Instructions: *You have been evaluated for Chest pain of unclear cause *Follow up with your primary care provider within 3 days *Avoid Alcohol *Return to ED for worsening condition, changes, needs *Return to ED if not better in 24 hours
[2016-11-20 05:55] LABS: ABSOLUTE BASOPHILS # (AUTO) 0.1 10^3/uL (0.0-0.2); ABSOLUTE EOSINOPHILS # (AUTO) 0.2 10^3/uL (0.0-0.6); ABSOLUTE MONOCYTES (AUTO) 0.6 10^3/uL (0.1-1.4); ABSOLUTE NEUT (AUTO) 3.6 10^3/uL (1.7-8.2); EOSINOPHILS % (AUTO) 2.8 % (0-6); HEMATOCRIT 39.3 % (37.9-51.0); HEMOGLOBIN 13.4 g/dL (13.5-17.0); HGB HCT DIFFERENCE 0.9; LYMPHOCYTES % (AUTO) 40.4 % (13-45); MEAN CORPUSCULAR HEMOGLOBIN 29.5 pg (27.0-33.4); MEAN CORPUSCULAR HGB CONC 34.1 g/dL (32.0-36.0); MEAN CORPUSCULAR VOLUME 87 fl (80-97); MONOCYTES % (AUTO) 7.6 % (3-13); RED BLOOD COUNT 4.54 10^6/uL (4.35-5.55); RED CELL DISTRIBUTION WIDTH 13.9 % (11.5-14.0); SEGMENTED NEUTROPHILS % (AUTO) 48.2 % (42-78); WHITE BLOOD COUNT 7.5 10^3/uL (4.0-10.5)
[2016-11-20 06:10] LABS: ALANINE AMINOTRANSFERASE 36 U/L (21-72); ALBUMIN 4.6 g/dL (3.5-5.0); ALKALINE PHOSPHATASE 112 U/L (38-126); ANION GAP 17 (5-19); ASPARTATE AMINO TRANSFERASE 31 U/L (17-59); BILIRUBIN,DIRECT 0.4 mg/dL (0.0-0.4); BILIRUBIN,TOTAL 0.4 mg/dL (0.2-1.3); BLOOD UREA NITROGEN 9 mg/dL (7-20); CALCIUM 9.4 mg/dL (8.4-10.2); CARBON DIOXIDE 23 mmol/L (22-30); CHLORIDE 104 mmol/L (98-107); CREATINE KINASE 80 U/L (55-170); CREATININE RESULT 0.75 mg/dL (0.52-1.25); GLUCOSE 179 mg/dL (75-110); POTASSIUM 4.4 mmol/L (3.6-5.0); SODIUM 143.6 mmol/L (137-145); TOTAL PROTEIN 7.5 g/dL (6.3-8.2)
[2016-11-20 06:22] LABS: CREATINE KINASE MB 0.87 ng/mL (<4.55)
[2016-11-20 06:27] LABS: TROPONIN I < 0.012 ng/mL
--- NOTE | 2016-11-20 08:33 | EKG REPORT ---
SEVERITY:- NORMAL ECG - SINUS RHYTHM : Confirmed by: Meli Jennings 20-Nov-2016 08:32:38
== END 2016-11-20 06:55 | disposition home or self-care (01) ==
LOC: ER 04:45
DX: R07.89 Other chest pain (principal); F10.129 Alcohol abuse with intoxication, unspecified; M25.561 Pain in right knee; I10 Essential (primary) hypertension; F17.210 Nicotine dependence, cigarettes, uncomplicated; Z98.890 Other specified postprocedural states
CPT/HCPCS: 36415; 71010; 80053; 82550; 82553; 84484; 85025; 93005; 93010; 99284

== ENCOUNTER 2016-11-21 22:01 | Emergency (ER) | payer OTHER ==
[2016-11-21 22:46] VITALS: BP 110/68
[2016-11-22] MEDS ORDERED: IBUPROFEN 600 MG TABLET PO ONE (00:55)
--- NOTE | 2016-11-22 01:02 | ER Document Report ---
ED Extremity Problem, Lower - General Chief Complaint: R knee and leg pain Stated Complaint: RIGHT KNEE PAIN Time Seen by Provider: 11/21/16 23:38 Mode of Arrival: Medic Information source: Patient Notes: 46-year-old male presents to ED via EMS for complaint of right leg and knee pain. He states he been drinking all day and fell this morning. He was walking around in the ED while cussing and smoke in his cigarettes in the room. Security had to come and take the cigarettes away from him. TRAVEL OUTSIDE OF THE [place] IN LAST 30 DAYS: No - HPI Patient complains to provider of: Injury - After a fall, Pain, Swelling Location: Knee - Right Occurred: Yesterday Where: Home Onset/Duration: Gradual Quality of pain: Throbbing Severity: Moderate Pain Level: 3 Context: Fell Recent injury: Yes Associated symptoms: Painful ambulation Exacerbated by: Hanging down, Movement, Walking Relieved by: Nothing - Related Data Allergies/Adverse Reactions: No Known Allergies Allergy (Verified 10/20/16 08:36) Past Medical History - General Information source: Patient - Social History Smoking Status: Current Every Day Smoker Cigarette use (# per day): Yes - pack per day Smoking Education Provided: Yes - less than 2 minutes Frequency of alcohol use: Heavy - Binge drinks Drug Abuse: None Lives with: Alone Family History: Hypertension Patient has suicidal ideation: No Patient has homicidal ideation: No - Past Medical History Cardiac Medical History: Reports: Hx Hypertension Pulmonary Medical History: Reports: None EENT Medical History: Reports: None Neurological Medical History: Reports: None Endocrine Medical History: Reports: None Renal/ Medical History: Reports: None Malignancy Medical History: Reports None GI Medical History: Reports: None Musculoskeltal Medical History: Reports Hx Arthritis, Reports Hx Musculoskeletal Trauma Skin Medical History: Reports None Psychiatric Medical History: Reports: Hx Depression Traumatic Medical History: Reports: Hx Fractures Infectious Medical History: Reports: None Past Surgical History: Reports: Hx Orthopedic Surgery - right knee - Immunizations Hx Diphtheria, Pertussis, Tetanus Vaccination: Yes Review of Systems - Review of Systems Constitutional: No symptoms reported EENT: No symptoms reported Cardiovascular: No symptoms reported Respiratory: No symptoms reported Gastrointestinal: No symptoms reported Genitourinary: No symptoms reported Male Genitourinary: No symptoms reported Musculoskeletal: Joint pain, Other - Bruising to right knee Skin: No symptoms reported, Other - Bruising to right knee Hematologic/Lymphatic: No symptoms reported Neurological/Psychological: No symptoms reported Physical Exam - Vital signs Vitals: Temp Pulse Resp BP Pulse Ox 97.5 F 87 16 110/68 100 11/21/16 22:41 11/21/16 22:41 11/21/16 22:41 11/21/16 22:41 11/21/16 22:41 Interpretation: Normal - General General appearance: Appears well, Alert - HEENT Head: Normocephalic, Atraumatic Eyes: Normal Pupils: PERRL - Respiratory Respiratory status: No respiratory distress Chest status: Nontender Breath sounds: Normal Chest palpation: Normal - Cardiovascular Rhythm: Regular Heart sounds: Normal auscultation Murmur: No - Abdominal Inspection: Normal Distension: No distension Bowel sounds: Normal Tenderness: Nontender Organomegaly: No organomegaly - Back Back: Normal, Nontender - Extremities General upper extremity: Normal inspection, Nontender, Normal color, Normal ROM , Normal temperature General lower extremity: Normal color, Normal ROM, Normal temperature, Normal weight bearing Knee: Tender, Ecchymosis, Pain with ROM, Patellar tendon intact, Other - Walking in the room states the painful. No: Abrasion, Deformity, Dislocation, Drawer's test instability, Instability, Joint effusion, Laceration, Laxity with valgus stress, Laxity with varus stress, Popliteal fossa tender Ankle: Normal, Nontender Foot: Normal, Nontender - Neurological Neuro grossly intact: Yes Cognition: Normal Orientation: AAOx4 [place] Coma Scale Eye Opening: Spontaneous [place] Coma Scale Verbal: Oriented [place] Coma Scale Motor: Obeys Commands [place] Coma Scale Total: 15 Speech: Normal Motor strength normal: LUE, RUE, LLE, RLE Sensory: Normal - Psychological Associated symptoms: Normal affect, Normal mood - Skin Skin Temperature: Warm Skin Moisture: Dry Skin Color: Normal Course - Re-evaluation Re-evalutation: 11/22/16 03:08 X-rays discussed with patient. Written report of x-ray given to patient. Patient was discharged after treating him with ibuprofen and an ice packs. Patient left after cursing the dressing that we could not give him a ride home and would not give him any narcotics for his pain in his knee. - Vital Signs Vital signs: Temp Pulse Resp BP Pulse Ox 97.5 F 87 16 110/68 100 11/21/16 22:41 11/21/16 22:41 11/21/16 22:41 11/21/16 22:41 11/21/16 22:41 - Diagnostic Test Radiology reviewed: Image reviewed, Reports reviewed Discharge - Discharge Clinical Impression: Contusion of knee, right Qualifiers: Encounter type: initial encounter Qualified Code(s): S80.01XA - Contusion of right knee, initial encounter Condition: Stable Disposition: HOME, SELF-CARE Additional Instructions: CONTUSION: Your injury has resulted in a contusion -- a crushing of the deep tissues. No injury to important structures was detected during the physician's exam. Contusions vary in the amount of pain they cause, and in the length of time required for healing. Typically, the area will become bruised, and will remain painful to touch for two or three weeks. However, most patients are back to working and playing within a few days. After the initial period of rest and cold-packs, your symptoms (together with the doctor's recommendations) will determine how rapidly you can get back to full activity. Usually this means "do what feels okay, but don't do things that hurt." If re-examination was recommended, it's important to follow up as instructed. Call the doctor or return any time if pain increases, if swelling becomes severe, if you develop numbness or weakness in an injured extremity, or if any other alarming symptoms occur. USE OF TYLENOL (ACETAMINOPHEN): Acetaminophen may be taken for pain relief or fever control. It's much safer than aspirin, offering a wider range of "safe" dosages. It is safe during . Some brand names are Tylenol, Panadol, Datril, Anacin 3, Tempra, and Liquiprin. Acetaminophen can be repeated every four hours. The following are maximum recommended dosages: WEIGHT Dose Drops Elixir Chewable( 80mg) (LBS.) drprs=droppers tsp=teaspoon 6 40 mg 0.4 ml (1/2) 6-11 80 mg 0.8 ml (full) tsp 1 tab 12-16 120 mg 1 1/2 drprs 3/4 tsp 1 1/2 tabs 17-23 160 mg 2 drprs 1 tsp 2 tabs 24-30 240 mg 3 drprs 1 1/2 tsp 3 tabs 30-35 320 mg 2 tsp 4 tabs 36-41 360 mg 2 1/4 tsp 4 1/2 tabs 42-47 400 mg 2 1/2 tsp 5 tabs 48-53 480 mg 3 tsp 6 tabs 54-59 520 mg 3 1/4 tsp 6 1/2 tabs 60-64 560 mg 3 1/2 tsp 7 tabs 65-70 600 mg 3 3/4 tsp 7 1/2 tabs 71-76 640 mg 4 tsp 8 tabs 77-82 720 mg 4 1/2 tsp 9 tabs 83-88 800 mg 5 tsp 10 tabs >89 pounds or adults 650 mg to 900 mg Acetaminophen can be repeated every four hours. Maximum dose not to exceed 4000 mg a day. These maximum recommended dosages are slightly higher than the dosages written on the product container, but these dosages are very safe and below the toxic dosage for acetaminophen. ICE & ELEVATION: Apply ice packs frequently against the painful area. Many different schedules are recommended, such as "20 minutes on, 20 minutes off" or "one hour ice, two hours rest." If you need to work, you may need to go longer between ice treatments. You should plan to have the area ice packed AT LEAST one- fourth of the time. The ice should be applied over the wrap, tape, or splint, or over a layer of cloth -- not directly against the skin. Some ice bags have a built-in cloth and can be put directly on the skin. Your injured part should be elevated as much as possible over the next 48 hours. Try to keep the injury above the level of the heart. Avoid use of the injured area. Elevation and rest will decrease the swelling. USE OF [id number] IBUPROFEN: Ibuprofen (Advil, Nuprin, Medipren, Motrin IB) is a medication for fever and pain control. In addition, it has anti- inflammatory effects which may be beneficial, especially in the treatment of injuries. It's best to take ibuprofen with food. Persons with ulcer disease or allergy to aspirin should notify their physician of this before taking ibuprofen. Ibuprofen can be given every four to six hours, for a total of four doses daily. Age Pain or fever dose Antiinflammatory dose 6-8 yr 200 mg (1 tab) 200 mg (1 tab) 9-11 yr 200 mg (1 tab) 200-400 mg (1-2 tab) 11-14 yr 200-400 mg (1-2 tab) 400 mg (2 tab) 15-adult 400 mg (2 tab) 600 mg (3 tab) FOLLOW-UP CARE: If you have been referred to a physician for follow-up care, call the physician s office for an appointment as you were instructed or within the next two days. If you experience worsening or a significant change in your symptoms, notify the physician immediately or return to the Emergency Department at any time for re-evaluation. Forms: Smoking Cessation Education Referrals: [facility] [Provider Group] - Follow up as needed
== END 2016-11-22 01:00 | disposition home or self-care (01) ==
LOC: ER 22:01
DX: S80.01XA Contusion of right knee, initial encounter (principal); W18.30XA Fall on same level, unspecified, initial encounter; Y92.009 Unspecified place in unspecified non-institutional (private) residence as the place of occurrence of the external cause; F17.210 Nicotine dependence, cigarettes, uncomplicated; I10 Essential (primary) hypertension
CPT/HCPCS: 99283

== ENCOUNTER 2016-11-24 23:15 | Emergency (ER) | payer OTHER ==
--- NOTE | 2016-11-24 23:42 | ER Document Report ---
ED General - General Chief Complaint: ETOH Abuse Stated Complaint: VOMITING BLOOD Time Seen by Provider: 11/24/16 23:41 Notes: Patient is a 46-year-old male well known to this emergency department who presents by EMS with acute alcohol intoxication. Patient is that he has had associated vomiting tonight but is been able to tolerate oral intake since that time. Nothing improves or worsens his symptoms. He has not seen a primary care doctor regarding todays concerns. At some mild assessment he denies any acute complaints and is asking to go home. Denies any additional coingestants tonight. States that hes been on a binge for the past 5 days does not regularly have an alcohol dependence and denies any history of alcohol withdrawals. He denies any additional acute medical complaints or concerns. TRAVEL OUTSIDE OF THE [place] IN LAST 30 DAYS: No - Related Data Allergies/Adverse Reactions: No Known Allergies Allergy (Verified 10/20/16 08:36) Past Medical History - General Information source: Patient - Social History Smoking Status: Current Every Day Smoker Frequency of alcohol use: Heavy Drug Abuse: None Lives with: Family Family History: Reviewed & Not Pertinent, Hypertension - Past Medical History Cardiac Medical History: Reports: Hx Hypertension Renal/ Medical History: Denies: Hx Peritoneal Dialysis Musculoskeltal Medical History: Reports Hx Arthritis, Reports Hx Musculoskeletal Trauma Psychiatric Medical History: Reports: Hx Depression Traumatic Medical History: Reports: Hx Fractures Past Surgical History: Reports: Hx Orthopedic Surgery - right knee - Immunizations Hx Diphtheria, Pertussis, Tetanus Vaccination: Yes Review of Systems - Review of Systems Notes: Constitutional: Negative for fever. Cardiovascular: Negative for chest pain. Respiratory: Negative for shortness of breath. Gastrointestinal: Negative for vomiting Musculoskeletal: Negative for back pain. Skin: Negative for rash. Neurological: Negative for weakness or numbness. 10 point ROS negative except as marked above and in HPI. Physical Exam - Vital signs Vitals: Temp Pulse Resp BP Pulse Ox 98.4 F 96 18 136/80 H 93 11/24/16 23:25 11/24/16 23:25 11/24/16 23:25 11/24/16 23:25 11/24/16 23:25 Interpretation: Normal Notes: PHYSICAL EXAMINATION: GENERAL: Somewhat disheveled but in no acute distress HEAD: Atraumatic, normocephalic. EYES: Pupils equal round and reactive to light, extraocular movements intact, sclera anicteric, conjunctiva are normal. ENT: nares patent, oropharynx clear without exudates. Moist mucous membranes. NECK: Normal range of motion, supple without lymphadenopathy LUNGS: Breath sounds clear to auscultation bilaterally and equal. No wheezes rales or rhonchi. HEART: Regular rate and rhythm without murmurs ABDOMEN: Soft, nontender, normoactive bowel sounds. No guarding, no rebound. No masses appreciated. EXTREMITIES: Normal range of motion, no pitting or edema. No cyanosis. NEUROLOGICAL: No focal neurological deficits. Moves all extremities spontaneously and on command. PSYCH: Mildly intoxicated SKIN: Warm, Dry, normal turgor, no rashes or lesions noted. Course - Re-evaluation Re-evalutation: 11/24/16 23:41 Patient presents with acute alcohol intoxication without any additional acute complaints. Admits to heavy alcohol use today. No evidence of trauma on exam. Patient is sober enough to ambulate in a straight line. He will have a cab ride home. Tolerating oral intake without difficulty. The patient has been instructed to seek help for alcohol detoxification. Will discharge and return precautions and follow-up recommendations. - Vital Signs Vital signs: Temp Pulse Resp BP Pulse Ox 98.4 F 96 18 136/80 H 93 11/24/16 23:25 11/24/16 23:25 11/24/16 23:25 11/24/16 23:25 11/24/16 23:25 Discharge - Discharge Clinical Impression: Alcohol intoxication Qualifiers: Complication of substance-induced condition: uncomplicated Qualified Code(s): F10.920 - Alcohol use, unspecified with intoxication, uncomplicated Condition: Good Disposition: HOME, SELF-CARE Additional Instructions: You were seen in the emergency department today for being drunk. Being seen in the emergency department after drinking alcohol is a serious indicator that you have a problem with alcohol. You should seek help with the attached resources for your problem drinking. Please return to the emergency room immediately if you experience any concerning symptoms including high fevers, severe headache, chest pain, difficulty breathing, abdominal pain, slurred speech, numbness or weakness in your arms or legs, or any other symptom that concerns you.
[2016-11-24 23:43] VITALS: BP 136/80
== END 2016-11-24 23:59 | disposition home or self-care (01) ==
LOC: ER 23:15
DX: F10.920 Alcohol use, unspecified with intoxication, uncomplicated (principal); K92.0 Hematemesis; F17.200 Nicotine dependence, unspecified, uncomplicated
CPT/HCPCS: 99284

== ENCOUNTER 2016-11-26 22:46 | Emergency (ER) | payer OTHER ==
--- NOTE | 2016-11-27 08:35 | EKG REPORT ---
SEVERITY:- NORMAL ECG - SINUS RHYTHM : Confirmed by: Meli Jennings 27-Nov-2016 08:35:13
== END 2016-11-27 01:29 | disposition left against medical advice (07) ==
LOC: ER 22:46
DX: Z53.21 Procedure and treatment not carried out due to patient leaving prior to being seen by health care provider (principal)
CPT/HCPCS: 93005; 93010

== ENCOUNTER 2016-11-27 07:27 | Emergency (ER) | payer OTHER ==
[2016-11-27] MEDS ORDERED: ASPIRIN 81 MG TABLET, CHEWABLE PO ONE (07:28)
--- NOTE | 2016-11-27 07:41 | ER Document Report ---
ED Cardiac - General Mode of Arrival: Medic Information source: Patient, Emergency Med Personnel TRAVEL OUTSIDE OF THE [place] IN LAST 30 DAYS: No - HPI Patient complains to provider of: Chest pain Associated symptoms: Other - See above <TRACY GREEN - Last Filed: 11/27/16 08:09> <TALITA DUFFY - Last Filed: 12/02/16 10:33> - General Chief Complaint: Chest Pain Stated Complaint: CHEST PAIN Notes: Patient is a 46 year old male, with a past medical history of HTN, who presents to the emergency department via EMS for chest pain onset around midnight last night. Patient states the pain is in the center of his chest. Patient reports he got in an argument with his father 8 days ago and has been drinking beer non- stop since, about 5 40s per day, and not eating. Last alcoholic drink was at 0430 today. Patient also reports bloody stools, hematuria, and vomiting bright red blood. Patient states he has been feeling depressed but denies suicidal ideations. Patient admits to being alcoholic and thinks he needs a crisis center. Per EMS patient was at this facility yesterday but left without being seen. (TRACY GREEN) - Related Data Allergies/Adverse Reactions: No Known Allergies Allergy (Verified 10/20/16 08:36) Past Medical History - General Information source: Patient - Social History Smoking Status: Unknown if Ever Smoked Frequency of alcohol use: Heavy Family History: Reviewed & Not Pertinent, Hypertension - Past Medical History Cardiac Medical History: Reports: Hx Hypertension Musculoskeltal Medical History: Reports Hx Arthritis, Reports Hx Musculoskeletal Trauma Psychiatric Medical History: Reports: Hx Depression Traumatic Medical History: Reports: Hx Fractures Past Surgical History: Reports: Hx Orthopedic Surgery - right knee - Immunizations Hx Diphtheria, Pertussis, Tetanus Vaccination: Yes <TRACY GREEN - Last Filed: 11/27/16 08:09> Review of Systems - Review of Systems Constitutional: No symptoms reported EENT: No symptoms reported Cardiovascular: See HPI, Chest pain Respiratory: No symptoms reported Gastrointestinal: See HPI, Vomiting, Blood streaked bowels, Blood in vomit Genitourinary: See HPI, Hematuria Male Genitourinary: No symptoms reported Musculoskeletal: No symptoms reported Skin: No symptoms reported Hematologic/Lymphatic: No symptoms reported Neurological/Psychological: denies: Suicidal ideation -: Yes All other systems reviewed and negative <TRACY GREEN - Last Filed: 11/27/16 08:09> Physical Exam - Vital signs Interpretation: Normal - General General appearance: Appears well, Alert, Other - smells of EtOH - HEENT Head: Normocephalic, Atraumatic - Respiratory Respiratory status: No respiratory distress Chest status: Nontender Breath sounds: Normal Chest palpation: Normal - Cardiovascular Rhythm: Regular Heart sounds: Normal auscultation Murmur: No - Abdominal Inspection: Normal Distension: No distension Bowel sounds: Normal Tenderness: Tender - epigastric tenderness to palpation. No: Guarding, Rebound Organomegaly: No organomegaly - Rectal Tenderness: No - Extremities General upper extremity: Normal inspection General lower extremity: Normal inspection - Neurological Neuro grossly intact: Yes Cognition: Normal Orientation: AAOx4 John Coma Scale Eye Opening: Spontaneous John Coma Scale Verbal: Oriented [place] Coma Scale Motor: Obeys Commands John Coma Scale Total: 15 Speech: Normal - Psychological Associated symptoms: Normal affect, Normal mood - Skin Skin Temperature: Warm Skin Moisture: Dry Skin Color: Normal <TRACY GREEN - Last Filed: 11/27/16 08:09> Course - Laboratory Result Diagrams: 11/27/16 07:54 11/27/16 07:54 <TRACY GREEN - Last Filed: 11/27/16 08:09> - Laboratory Result Diagrams: 11/27/16 07:54 11/27/16 07:54 <TALITA DUFFY - Last Filed: 12/02/16 10:33> - Re-evaluation Re-evalutation: 11/27/16 07:45 Patient presents emergency department via EMS with a chief plain of epigastric pain going up into his chest which she is describing his chest pain. Says he's been drinking alcohol heavily for the past 2 weeks in the form of beer. He says been vomiting up blood as well as having blood bright red when he goes to the bathroom. He has tenderness over the epigastric region. Said she's been depressed but is not suicidal or homicidal. His only family member or load out person is his father which she got into an argument with. He does not have any suicidal ideation or history of psychiatric illness. Does have a history of high blood pressure for which she states she's taking his medication. He denies any cardiac history of MD PE or dissection. On examination he is mildly tachycardic he smells of alcohol but is not displaying altered mental status. Lungs are clear his abdomen is Tenderness the epigastric region is not associated with guarding rebound or rigidity. Did a guaiac examination on him which was sent to the lab. At this point EKG does not show any acute cardiac abnormality canceled the aspirin that the nurse had initially ordered so examination G-tube in addition to lipase liver enzymes cardiac enzymes and IV fluids. Further assessment and evaluation 11/27/16 12:35 reassessed at bedside blood alcohol mildly elevated no elevated liver enzymes significant no acute pancreatitis reassessed multiple times eating and drinking well without any difficulty. Patient wants to go home he allow me to give him a dose of Ativan he has not had any withdrawal seizures in the past. His dad came in to give a ride home and says that he has been drinking but he doesn't have any concerns he is going to harm himself nor has he ever harmed himself in the past. Dad says he will take him home with him and keep an eye on him. Patient agreed to let me start him on Carafate and Prilosec I'm giving a family doctor for follow-up. I am concerned that he initially said he has been throwing up blood and had blood in the stool but he is denying that currently and is not hypotensive or in need of a blood transfusion. At this point we'll discharge him with follow-up in 2-3 days and discussed reasons for ED return sooner (TALITA DUFFY) - Vital Signs Vital signs: Temp Pulse Resp BP Pulse Ox 98.2 F 16 131/82 H 94 11/27/16 08:00 11/27/16 11:01 11/27/16 11:01 11/27/16 11:01 - Laboratory Laboratory results interpreted by me: 11/27/16 07:54 Glucose 166 H Direct Bilirubin 0.5 H Alkaline Phosphatase 131 H - EKG Interpretation by Me Additional EKG results interpreted by me: 11/27/16 12:38 EKG interpreted by myself to reveal sinus rhythm at 93 beats her minute no acute ST segment elevation or depression (TALITA DUFFY) Discharge <TRACY GREEN - Last Filed: 11/27/16 08:09> <TALITA DUFFY - Last Filed: 12/02/16 10:33> - Discharge Clinical Impression: alcohol intoxication, epigastric abdominal pain Condition: Stable Disposition: HOME, SELF-CARE Additional Instructions: Chest Pain of Unclear Cause The exact cause of your chest pain isn't clear. Fortunately, there is no evidence of a dangerous medical condition. Further testing may be required to find the source of the pain. Most often, we find that this pain is coming from the chest wall -- the muscles or rib joints in the chest. But chest pain can come from the lung and lung lining, the esophagus, the heart valves or heart lining, and even the stomach or gallbladder. Rest. Eat lightly until the pain is gone. We may prescribe medicine for pain and inflammation. You should call the physician immediately if the pain radiates to the shoulder, jaw or arms; if you start to run a fever or develop a cough; or if you develop shortness of breath, or other new or alarming symptoms. Abdominal Pain There are many causes of abdominal pain. Pain can mean a serious problem requiring surgery (such as appendicitis). It can also be an innocent problem that goes away on its own (such as a viral infection). Often, time must pass to determine the cause of pain. The physician does not feel that hospitalization is necessary, at present. Things may change within the next 24 hours. Call the doctor or come back for re- examination if any problems occur, such as: (1) Pain that becomes more severe, steady, or becomes concentrated in one specific area. Also, pain that is more severe with movement or coughing. (2) Vomiting that persists or becomes more frequent. (3) Blood in the vomitus, urine, or bowel movements. Blood in the stool may have a tarry or black appearance. (4) Shaking chills or fever greater than 100 degrees F. (5) The abdomen becomes more distended or swollen. (6) Bowel movements cease. (7) Failure to improve as expected. Alcohol abuse Prescriptions: Omeprazole Magnesium [Prilosec Otc] 20 mg PO BID #20 tablet. Sucralfate [Carafate 1 gm Tablet] 1 gm PO ACHS #15 tablet Referrals: [facility] [Primary Care Provider] - (Call for an appointment today to be seen in follow-up in 2-3 days return for increasing worsening or new symptoms) Scribe Attestation: 11/27/16 12:38 I personally performed the services described in the documentation reviewed the documentation recorded by my scribe in my presence and it accurately and completely records my words and actions (TALITA DUFFY) Scribe Documentation - Scribe Written by Domitila:: domitila Duarte, 11/27/16, 0816 acting as scribe for :: Kaushik <TRACY GREEN - Last Filed: 11/27/16 08:09>
[2016-11-27] MEDS ORDERED: LORAZEPAM INJ 2 MG/1 ML VIAL ONE (08:14)
[2016-11-27 08:18] LABS: ABSOLUTE BASOPHILS # (AUTO) 0.1 10^3/uL (0.0-0.2); ABSOLUTE EOSINOPHILS # (AUTO) 0.4 10^3/uL (0.0-0.6); ABSOLUTE LYMPHOCYTES (AUTO) 2.9 10^3/uL (0.5-4.7); ABSOLUTE MONOCYTES (AUTO) 0.6 10^3/uL (0.1-1.4); ABSOLUTE NEUT (AUTO) 5.2 10^3/uL (1.7-8.2); BASOPHILS % (AUTO) 1.4 % (0-2); EOSINOPHILS % (AUTO) 4.4 % (0-6); HEMATOCRIT 43.7 % (37.9-51.0); HEMOGLOBIN 15.5 g/dL (13.5-17.0); HGB HCT DIFFERENCE 2.8; LYMPHOCYTES % (AUTO) 31.1 % (13-45); MEAN CORPUSCULAR HEMOGLOBIN 30.4 pg (27.0-33.4); MEAN CORPUSCULAR HGB CONC 35.3 g/dL (32.0-36.0); MEAN CORPUSCULAR VOLUME 86 fl (80-97); MONOCYTES % (AUTO) 6.8 % (3-13); RED BLOOD COUNT 5.08 10^6/uL (4.35-5.55); RED CELL DISTRIBUTION WIDTH 13.7 % (11.5-14.0); SEGMENTED NEUTROPHILS % (AUTO) 56.3 % (42-78); WHITE BLOOD COUNT 9.3 10^3/uL (4.0-10.5)
[2016-11-27] MEDS ORDERED: LORAZEPAM INJ 2 MG/1 ML VIAL IV ONE (08:19)
[2016-11-27] MEDS ORDERED: ONDANSETRON HCL INJ/PF 4 MG/2 ML SDV ONE ×2 (08:24)
[2016-11-27] MEDS ORDERED: ONDANSETRON HCL INJ/PF 4 MG/2 ML SDV IV ONE (08:28)
[2016-11-27 08:42] LABS: ALANINE AMINOTRANSFERASE 36 U/L (21-72); ALBUMIN 4.7 g/dL (3.5-5.0); ALCOHOL 232 mg/dL (NONE DETECTED); ALKALINE PHOSPHATASE 131 U/L (38-126); ANION GAP 18 (5-19); ASPARTATE AMINO TRANSFERASE 38 U/L (17-59); BILIRUBIN,DIRECT 0.5 mg/dL (0.0-0.4); BILIRUBIN,TOTAL 0.7 mg/dL (0.2-1.3); BLOOD UREA NITROGEN 8 mg/dL (7-20); CALCIUM 9.5 mg/dL (8.4-10.2); CARBON DIOXIDE 22 mmol/L (22-30); CHLORIDE 99 mmol/L (98-107); CREATINE KINASE 111 U/L (55-170); CREATININE RESULT 0.74 mg/dL (0.52-1.25); GLUCOSE 166 mg/dL (75-110); LIPASE 285.1 U/L (23-300); POTASSIUM 4.3 mmol/L (3.6-5.0); TOTAL PROTEIN 8.1 g/dL (6.3-8.2)
[2016-11-27 08:59] LABS: CREATINE KINASE MB 0.68 ng/mL (<4.55)
[2016-11-27 09:00] LABS: TROPONIN I < 0.012 ng/mL
[2016-11-27 10:00] LABS: URINE BARBITURATES SCREEN NEGATIVE; URINE METHADONE SCREEN NEGATIVE; URINE OPIATES LOW NEGATIVE; URINE PHENCYCLIDINE SCREEN NEGATIVE
[2016-11-27 11:58] VITALS: BP 131/82
[2016-11-27] MEDS ORDERED: NORMAL SALINE 1000 ML 1,000 ML with POTASSIUM CHLORIDE 20 MEQ, MAGNESIUM SULFATE 8 MEQ,... IV SCH ×5 (18:00)
== END 2016-11-27 12:42 | disposition home or self-care (01) ==
LOC: ER 07:27
DX: F10.129 Alcohol abuse with intoxication, unspecified (principal); R07.9 Chest pain, unspecified; R11.10 Vomiting, unspecified; R10.13 Epigastric pain; R74.8 Abnormal levels of other serum enzymes; I10 Essential (primary) hypertension
CPT/HCPCS: 99284; 96374; 96375; 36415; 82553; 80307 ×2; 82550; 83690; 85025; 82272; 80053; 84484; 71010; J2060; J2405

== ENCOUNTER 2016-12-24 08:27 | Emergency (ER) | payer OTHER ==
[2016-12-24] MEDS ORDERED: ATENOLOL 50 MG TABLET PO ONE (09:24)
--- NOTE | 2016-12-24 09:30 | ER Document Report ---
HPI - HPI Patient complains to provider of: medication refill Onset: Yesterday Pain Level: 0 Context: Patient states she was not able to [facility] as he was in retirement when he was to. So he states he has missed several visits. Associated Symptoms: None Exacerbated by: Denies Relieved by: Denies Similar symptoms previously: Yes Recently seen / treated by doctor: No - ROS ROS below otherwise negative: Yes - CONSTITUTIONAL Constitutional: DENIES: Fever, Chills - EENT EENT: DENIES: Sore Throat, Ear Pain, Nasal Drainage-Clear, Nasal Drainage- Purulent, Congestion, Eye problems - CARDIOVASCULAR Cardiovascular: DENIES: Chest pain - RESPIRATORY Respiratory: DENIES: Trouble Breathing, Coughing - GASTROINTESTINAL Gastrointestinal: DENIES: Abdominal Pain, Nausea, Patient vomiting, Diarrhea, Constipation, Black / Bloody Stools - URINARY Urinary: DENIES: Dysuria, Urgency, Frequency - REPRODUCTIVE Reproductive: DENIES: : - MUSCULOSKELETAL Musculoskeletal: DENIES: Extremity pain, Back Pain, Neck Pain, Swelling - DERM Skin Color: Normal Skin Problems: None Past Medical History - General Information source: Patient - Social History Smoking Status: Current Every Day Smoker Cigarette use (# per day): Yes - 15 cigarettes a day Chew tobacco use (# tins/day): No Smoking Education Provided: Yes - less than 2 min Frequency of alcohol use: Social Drug Abuse: None Lives with: Family Family History: CAD, DM, Hyperlipidemia, Hypertension Patient has suicidal ideation: No Patient has homicidal ideation: No - Past Medical History Cardiac Medical History: Reports: Hx Hypertension Pulmonary Medical History: Reports: None EENT Medical History: Reports: None Neurological Medical History: Reports: None Endocrine Medical History: Reports: None Renal/ Medical History: Reports: None Malignancy Medical History: Reports None GI Medical History: Reports: None Musculoskeltal Medical History: Reports Hx Arthritis, Reports Hx Musculoskeletal Trauma Skin Medical History: Reports None Psychiatric Medical History: Reports: Hx Anxiety, Hx Depression Traumatic Medical History: Reports: Hx Fractures Infectious Medical History: Reports: None Past Surgical History: Reports: Hx Orthopedic Surgery - right knee - Immunizations Hx Diphtheria, Pertussis, Tetanus Vaccination: Yes Vertical Provider Document - CONSTITUTIONAL Agree With Documented VS: Yes Exam Limitations: No Limitations General Appearance: WD/WN, No Apparent Distress - INFECTION CONTROL TRAVEL OUTSIDE OF THE [place] IN LAST 30 DAYS: No - HEENT HEENT: Atraumatic, Normal ENT Exam, Normocephalic, PERRLA - NECK Neck: Normal Inspection, Supple - RESPIRATORY Respiratory: Breath Sounds Normal, No Respiratory Distress, Chest Non-Tender O2 Sat by Pulse Oximetry: 98 - CARDIOVASCULAR Cardiovascular: Regular Rate, Regular Rhythm - GI/ABDOMEN Gastrointestinal: Abdomen Soft, Abdomen Non-Tender, No Organomegaly, Normal Bowel Sounds - MUSCULOSKELETAL/EXTREMETIES Musculoskeletal/Extremeties: MAEW, FROM, Non-Tender - NEURO Level of Consciousness: Awake, Alert, Appropriate Course - Vital Signs Vital signs: Temp Pulse Resp BP Pulse Ox 98.0 F 129 H 20 157/83 H 98 12/24/16 08:28 12/24/16 08:28 12/24/16 08:28 12/24/16 08:28 12/24/16 08:28 Discharge - Discharge Clinical Impression: out of bp medication Condition: Stable Disposition: HOME, SELF-CARE Additional Instructions: HIGH BLOOD PRESSURE REQUIRING TREATMENT: Your blood pressure is high. This is called "hypertension." Today's reading was __157/83 (normal is less than 140/90). please be sure to keep appointment for bp refills. Your history and exam suggest that this is not a temporary problem. You need treatment of your blood pressure. If left untreated, high blood pressure greatly increases your risk of heart attack and stroke. Please don't ignore this problem. If you have blood pressure medicine but aren't using it regularly, start taking it again. Some simple things you can do to help are: Get some aerobic exercise for at least 20 minutes on a daily basis. (See your doctor before beginning any new exercise program.) Eat a low-fat diet. Lose excess weight. Avoid salty foods and avoid adding salt to any of the foods you eat. Avoid diet pills, decongestants, "energizing" herbs, and other medicines that elevate blood pressure. There are many different medicines that treat blood pressure. If your medication causes unpleasant side effects, call your doctor. There are others you can try. Treating hypertension is a life-long investment in your health. BETA BLOCKERS: You have been given a prescription for a beta-lolly medication. This class of drugs is used for many purposes, including angina, high blood pressure , heart rhythm disturbances, tremors, and migraines. The medication works by interfering with the effects of the sympathetic nervous system (the sympathetic system has adrenaline-like effects of constricting blood vessels, increasing heart rate, and increasing blood pressure). This medication is usually well-tolerated. However, some patients have side effects such as fatigue, depression, or dizziness. Persons with asthma may develop wheezing from this medicine. Contact your doctor if you are bothered by any side effects. Do not take any cold or allergy medication without first consulting your doctor. Do not stop the medicine without consulting your doctor, as a "rebound " worsening of your condition can result. FOLLOW-UP CARE: If you have been referred to a physician for follow-up care, call the physician s office for an appointment as you were instructed or within the next two days. If you experience worsening or a significant change in your symptoms, notify the physician immediately or return to the Emergency Department at any time for re-evaluation. Prescriptions: Atenolol 50 mg PO DAILY #30 tablet Forms: Elevated Blood Pressure, Smoking Cessation Education Referrals: [facility] [Provider Group] - Follow up as needed
[2016-12-24 10:02] VITALS: BP 120/70
== END 2016-12-24 10:11 | disposition home or self-care (01) ==
LOC: ER 08:27
DX: Z76.0 Encounter for issue of repeat prescription (principal); I10 Essential (primary) hypertension; F17.210 Nicotine dependence, cigarettes, uncomplicated; Z71.6 Tobacco abuse counseling
CPT/HCPCS: 99281

== ENCOUNTER 2016-12-29 19:29 | Emergency (ER) | payer OTHER ==
[2016-12-29] MEDS ORDERED: ASPIRIN 81 MG TABLET, CHEWABLE PO ONE (19:31)
[2016-12-29 19:53] LABS: ABSOLUTE BASOPHILS # (AUTO) 0.2 10^3/uL (0.0-0.2); ABSOLUTE EOSINOPHILS # (AUTO) 0.2 10^3/uL (0.0-0.6); ABSOLUTE LYMPHOCYTES (AUTO) 3.7 10^3/uL (0.5-4.7); ABSOLUTE MONOCYTES (AUTO) 1.1 10^3/uL (0.1-1.4); ABSOLUTE NEUT (AUTO) 7.4 10^3/uL (1.7-8.2); BASOPHILS % (AUTO) 1.3 % (0-2); EOSINOPHILS % (AUTO) 1.6 % (0-6); HEMOGLOBIN 13.3 g/dL (13.5-17.0); HGB HCT DIFFERENCE -0.1; LYMPHOCYTES % (AUTO) 29.6 % (13-45); MEAN CORPUSCULAR HEMOGLOBIN 28.5 pg (27.0-33.4); MEAN CORPUSCULAR HGB CONC 33.1 g/dL (32.0-36.0); MEAN CORPUSCULAR VOLUME 86 fl (80-97); MONOCYTES % (AUTO) 8.8 % (3-13); RED BLOOD COUNT 4.67 10^6/uL (4.35-5.55); RED CELL DISTRIBUTION WIDTH 13.6 % (11.5-14.0); SEGMENTED NEUTROPHILS % (AUTO) 58.7 % (42-78); WHITE BLOOD COUNT 12.5 10^3/uL (4.0-10.5)
[2016-12-29] MEDS ORDERED: LIDOCAINE 2% VISCOUS SOLN 20 ML UDCUP PO ONE (20:06)
[2016-12-29] MEDS ORDERED: MAG HYDROX/AL HYDROX/SIMETH SUSP 30 ML UDCUP PO ONE (20:06)
[2016-12-29] MEDS ORDERED: METOCLOPRAMIDE HCL ORAL SOLN 10 MG/10 ML UDCUP PO ONE (20:06)
[2016-12-29 20:08] LABS: ALANINE AMINOTRANSFERASE 32 U/L (21-72); ALBUMIN 4.5 g/dL (3.5-5.0); ALKALINE PHOSPHATASE 122 U/L (38-126); ANION GAP 18 (5-19); ASPARTATE AMINO TRANSFERASE 26 U/L (17-59); BILIRUBIN,DIRECT 0.4 mg/dL (0.0-0.4); BILIRUBIN,TOTAL 0.5 mg/dL (0.2-1.3); BLOOD UREA NITROGEN 13 mg/dL (7-20); CALCIUM 9.5 mg/dL (8.4-10.2); CARBON DIOXIDE 18 mmol/L (22-30); CHLORIDE 101 mmol/L (98-107); CREATINE KINASE 156 U/L (55-170); CREATININE RESULT 0.78 mg/dL (0.52-1.25); GLUCOSE 176 mg/dL (75-110); POTASSIUM 4.4 mmol/L (3.6-5.0); SODIUM 137.3 mmol/L (137-145); TOTAL PROTEIN 7.4 g/dL (6.3-8.2)
[2016-12-29 20:10] VITALS: BP 118/74
--- NOTE | 2016-12-29 20:13 | ER Document Report ---
ED General - General Chief Complaint: Chest Pain Stated Complaint: CHEST PAIN Time Seen by Provider: 12/29/16 19:43 Notes: Patient is a 46-year-old male well-known to this emergency department who presents by EMS for chest pain. Patient admits to heavy alcohol use recently but appears clinically sober at time of arrival. He is complaining of a constant, burning, throbbing discomfort in the center of his chest. Nothing improves or worsens the pain. States it did start after an episode of vomiting. No cardiac history. Patient has frequent presentations to the emergency department for similar complaints. He denies any history of DVT or pulmonary embolus. TRAVEL OUTSIDE OF THE [place] IN LAST 30 DAYS: No - Related Data Allergies/Adverse Reactions: No Known Allergies Allergy (Verified 12/29/16 20:06) Past Medical History - General Information source: Patient - Social History Smoking Status: Current Every Day Smoker Frequency of alcohol use: Heavy Drug Abuse: None Lives with: Spouse/Significant other Family History: CAD, DM, Hyperlipidemia, Hypertension - Past Medical History Cardiac Medical History: Reports: Hx Hypertension Renal/ Medical History: Denies: Hx Peritoneal Dialysis Musculoskeltal Medical History: Reports Hx Arthritis, Reports Hx Musculoskeletal Trauma Psychiatric Medical History: Reports: Hx Anxiety, Hx Depression Traumatic Medical History: Reports: Hx Fractures Past Surgical History: Reports: Hx Orthopedic Surgery - right knee - Immunizations Hx Diphtheria, Pertussis, Tetanus Vaccination: Yes Review of Systems - Review of Systems Notes: Constitutional: Negative for fever. HENT: Negative for sore throat. Eyes: Negative for visual changes. Cardiovascular: Positive for chest pain. Respiratory: Negative for shortness of breath. Gastrointestinal: Negative for abdominal pain, vomiting or diarrhea. Genitourinary: Negative for dysuria. Musculoskeletal: Negative for back pain. Skin: Negative for rash. Neurological: Negative for headaches, weakness or numbness. 10 point ROS negative except as marked above and in HPI. Physical Exam - Vital signs Vitals: Pulse Ox 98 12/29/16 19:29 Interpretation: Normal Notes: PHYSICAL EXAMINATION: GENERAL: Well-appearing, well-nourished and in no acute distress. HEAD: Atraumatic, normocephalic. EYES: Pupils equal round and reactive to light, extraocular movements intact, sclera anicteric, conjunctiva are normal. ENT: nares patent, oropharynx clear without exudates. Moist mucous membranes. NECK: Normal range of motion, supple without lymphadenopathy LUNGS: Breath sounds clear to auscultation bilaterally and equal. No wheezes rales or rhonchi. HEART: Regular rate and rhythm without murmurs ABDOMEN: Soft, nontender, normoactive bowel sounds. No guarding, no rebound. No masses appreciated. EXTREMITIES: Normal range of motion, no pitting or edema. No cyanosis. NEUROLOGICAL: No focal neurological deficits. Moves all extremities spontaneously and on command. PSYCH: Mildly agitated but redirectable SKIN: Warm, Dry, normal turgor, no rashes or lesions noted. Course - Re-evaluation Re-evalutation: 12/29/16 20:08 Presentation of chest pain in an otherwise well appearing patient. Low clinical suspicion for ACS given clinical history, exam, EKG without ST elevations or depressions. HEART score less than or equal to 3. PE also seems unlikely given clinical history, absence of dyspnea. Tachycardia noted at triage but I do not believe based on his history, exam, absence of risk factors that his presentation is secondary to PE. CXR without evidence of pneumothorax or pneumonia. No widened mediastinum. Aortic dissection also seems unlikely given history, symmetric pulses, CXR, and vitals. Patient frequents this ED for intoxication, often complains of chest pain on presentation. Pain has been present for 8 days and I do not believe serial troponins are indicated. However , patient did not want to wait for the results of the troponin prior to being discharged. The patient has chosen to leave the facility against medical advice. The relevant issues have been reviewed and discussed with the patient and family at the bedside. At the time of this assessment there is no indication for involuntary commitment. The patient is alert, oriented, and able to express clearly their reasoning for not wanting to remain in the emergency department for further treatment. The patient is not clinically psychotic, intoxicated, and denies and suicidal ideation. Differential or suspected diagnoses based on medical screening exam: Chest pain The patient is aware of the concerning diagnoses and acknowledges understanding of the reasons for the following recommendations: The emergency department for troponin testing The following recommendations/services were offered and refused: Cardiac monitoring, troponin testing The following risks were explained: , permanent disability, loss of function Clinical impression: Patient is competent to make decisions regarding the medical that is being offered. - Vital Signs Vital signs: Temp Pulse Resp BP Pulse Ox 97.6 F 19 118/74 97 12/29/16 19:38 12/29/16 20:01 12/29/16 20:00 12/29/16 20:01 - Laboratory Result Diagrams: 12/29/16 19:41 12/29/16 19:41 Laboratory results interpreted by me: 12/29/16 12/29/16 19:41 19:41 WBC 12.5 H Hgb 13.3 L Carbon Dioxide 18 L Glucose 176 H - Diagnostic Test Radiology reviewed: Image reviewed, Reports reviewed Radiology results interpreted by me: 12/29/16 20:13 Chest x-ray: No acute infiltrate or pneumothorax - EKG Interpretation by Me Additional EKG results interpreted by me: 12/29/16 20:13 Sinus tachycardia. Rate 100. No ST elevations or depressions. Discharge - Discharge Clinical Impression: Chest pain Qualifiers: Chest pain type: unspecified Qualified Code(s): R07.9 - Chest pain, unspecified Disposition: AGAINST MEDICAL ADVICE
[2016-12-29 20:20] LABS: CREATINE KINASE MB 1.02 ng/mL (<4.55); TROPONIN I < 0.012 ng/mL
--- NOTE | 2016-12-29 20:57 | RADIOLOGY REPORT (SQ) ---
EXAM DESCRIPTION: CHEST SINGLE VIEW COMPLETED DATE/TIME: 12/29/2016 7:56 pm REASON FOR STUDY: cp COMPARISON: 11/27/2016 EXAM PARAMETERS: NUMBER OF VIEWS: One view. TECHNIQUE: Single frontal radiographic view of the chest acquired. RADIATION DOSE: NA LIMITATIONS: None. FINDINGS: LUNGS AND PLEURA: No acute opacities, masses or pneumothorax. No pleural effusion. MEDIASTINUM AND HILAR STRUCTURES: No masses. Contour normal. HEART AND VASCULAR STRUCTURES: Heart normal in size. Normal vasculature. BONES: No acute findings. HARDWARE: None in the chest. OTHER: No other significant finding. IMPRESSION: NO ACUTE RADIOGRAPHIC FINDING IN THE CHEST. TECHNICAL DOCUMENTATION: JOB ID: [id number]
--- NOTE | 2016-12-29 23:43 | EKG REPORT ---
SEVERITY:- OTHERWISE NORMAL ECG - SINUS TACHYCARDIA : Confirmed by: Meli Jennings 29-Dec-2016 23:42:21
--- NOTE | 2016-12-31 12:59 | EKG REPORT ---
SEVERITY:- NORMAL ECG - SINUS RHYTHM : Confirmed by: Lluvia Florian MD 31-Dec-2016 12:59:10
== END 2016-12-29 20:15 | disposition left against medical advice (07) ==
LOC: ER 19:29
DX: R07.9 Chest pain, unspecified (principal); F17.200 Nicotine dependence, unspecified, uncomplicated; I10 Essential (primary) hypertension
CPT/HCPCS: 36415; 71010; 80053; 82550; 82553; 84484; 85025; 93005; 93010; 99285

== ENCOUNTER 2016-12-29 20:28 | Emergency (ER) | payer OTHER ==
[2016-12-29 20:32] VITALS: BP 148/87
--- NOTE | 2016-12-29 23:43 | EKG REPORT ---
SEVERITY:- OTHERWISE NORMAL ECG - SINUS TACHYCARDIA : Confirmed by: Meli Jennings 29-Dec-2016 23:42:12
== END 2016-12-29 22:45 | disposition left against medical advice (07) ==
LOC: ER 20:28
DX: Z53.21 Procedure and treatment not carried out due to patient leaving prior to being seen by health care provider (principal)
CPT/HCPCS: 93005; 93010

== ENCOUNTER 2016-12-29 23:28 | Emergency (ER) | payer OTHER ==
[2016-12-29 23:39] VITALS: BP 128/74
== END 2016-12-30 01:30 | disposition left against medical advice (07) ==
LOC: ER 23:28
DX: Z53.21 Procedure and treatment not carried out due to patient leaving prior to being seen by health care provider (principal)

== ENCOUNTER 2016-12-30 09:24 | Emergency (ER) | payer OTHER ==
--- NOTE | 2016-12-30 09:41 | ER Document Report ---
ED General - General Stated Complaint: CHEST PAIN Time Seen by Provider: 12/30/16 09:30 Mode of Arrival: Medic Information source: Patient Notes: 46-year-old chronic alcoholic presents with complaints of chest pain. Patient states she has never had chest pain before yet when questioned further admits he was here yesterday 3 times and a day before that with complaints of chest pain. Patient notes he has been drinking excessively since Sunday. Patient denies any shortness of breath difficulty breathing states pain is midsternal similar to his previous chest pain TRAVEL OUTSIDE OF THE [place] IN LAST 30 DAYS: No - HPI Onset: Other Onset/Duration: Persistent Quality of pain: Burning Severity: Mild Pain Level: 1 Associated symptoms: Chest pain Exacerbated by: Denies Relieved by: Denies Similar symptoms previously: Yes Recently seen / treated by doctor: Yes - Related Data Allergies/Adverse Reactions: No Known Allergies Allergy (Verified 12/29/16 20:06) Past Medical History - Social History Smoking Status: Current Every Day Smoker Cigarette use (# per day): Yes Chew tobacco use (# tins/day): No Smoking Education Provided: No Frequency of alcohol use: Heavy Family History: CAD, DM, Hyperlipidemia, Hypertension - Past Medical History Cardiac Medical History: Reports: Hx Hypertension Renal/ Medical History: Denies: Hx Peritoneal Dialysis Musculoskeltal Medical History: Reports Hx Arthritis, Reports Hx Musculoskeletal Trauma Psychiatric Medical History: Reports: Hx Anxiety, Hx Depression Traumatic Medical History: Reports: Hx Fractures Past Surgical History: Reports: Hx Orthopedic Surgery - right knee - Immunizations Hx Diphtheria, Pertussis, Tetanus Vaccination: Yes Review of Systems - Review of Systems Notes: REVIEW OF SYSTEMS: CONSTITUTIONAL : Denies fever, chills, or sweats. Denies recent illness. EENT: Denies eye, ear, throat, or mouth pain or symptoms. Denies nasal or sinus congestion or discharge. Denies throat, tongue, or mouth swelling or difficulty swallowing. CARDIOVASCULAR: Admits to chest pain RESPIRATORY: Denies cough, cold, or chest congestion. Denies shortness of breath, difficulty breathing, or wheezing. GASTROINTESTINAL: Denies abdominal pain or distention. Denies nausea, vomiting , or diarrhea. Denies blood in vomitus, stools, or per rectum. Denies black, tarry stools. Denies constipation. GENITOURINARY: Denies difficulty urinating, painful urination, burning, frequency, blood in urine, or discharge. MUSCULOSKELETAL: Denies back or neck pain or stiffness. Denies joint pain or swelling. SKIN: Denies rash, lesions or sores. HEMATOLOGIC : Denies easy bruising or bleeding. LYMPHATIC: Denies swollen, enlarged glands. NEUROLOGICAL: Denies confusion or altered mental status. Denies passing out or loss of consciousness. Denies dizziness or lightheadedness. Denies headache. Denies weakness or paralysis or loss of use of either side. Denies problems with gait or speech. Denies sensory loss, numbness, or tingling. Denies seizures. PSYCHIATRIC: Denies anxiety or stress. Denies depression, suicidal ideation, or homicidal ideation. ALL OTHER SYSTEMS REVIEWED AND NEGATIVE. Dictation was performed using [employer] voice recognition software PHYSICAL EXAMINATION: GENERAL: Well-appearing, well-nourished and in no acute distress. Appears intoxicated HEAD: Atraumatic, normocephalic. EYES: Pupils equal round and reactive to light, extraocular movements intact, sclera anicteric, conjunctiva are normal. ENT: Nares patent, oropharynx clear without exudates. Moist mucous membranes. NECK: Normal range of motion, supple without lymphadenopathy LUNGS: Breath sounds clear to auscultation bilaterally and equal. No wheezes rales or rhonchi. HEART: Regular rate and rhythm without murmurs ABDOMEN: Soft, nontender, nondistended abdomen. No guarding, no rebound. No masses appreciated. Musculoskeletal: Normal range of motion, no pitting or edema. No cyanosis. NEUROLOGICAL: Cranial nerves grossly intact. Normal speech, normal gait. Normal sensory, motor exams PSYCH: Normal mood, normal affect. SKIN: Warm, Dry, normal turgor, no rashes or lesions noted. Course - Re-evaluation Re-evalutation: 12/30/16 09:40 I have very low suspicion for any life-threatening cardiac abdominal issues. I am unsure as how to approach this patient's alcohol abuse and he does not wish to receive any treatment for it 12/30/16 11:00 12/30/16 11:06 Patient was found smoking in the bathroom, he wishes to leave AGAINST MEDICAL ADVICE, I have been able to convince him to stay at least until lab results are back. Patient is now left eye there without being seen or AGAINST MEDICAL ADVICE multiple times in the past month 12/30/16 11:32 After performing a Medical Screening Examination, I spoke with the patient at length in regards to leaving the hospital against medical advice. I do not believe the patient should leave but the patient is alert oriented x4, understands the risks and benefits of staying and leaving including disability and . Pt understands that he can return at any time for further care and is more than welcome to do so. Pt verbalizes this understanding. - Laboratory Result Diagrams: 12/30/16 09:40 12/30/16 09:40 Laboratory results interpreted by me: 12/30/16 12/30/16 09:40 09:40 WBC 11.0 H Carbon Dioxide 18 L Glucose 170 H Alkaline Phosphatase 128 H Creatine Kinase 246 H - EKG Interpretation by Me EKG shows normal: Sinus rhythm, [place], Intervals, QRS Complexes Discharge - Discharge Clinical Impression: Alcohol intoxication Qualifiers: Complication of substance-induced condition: uncomplicated Qualified Code(s): F10.920 - Alcohol use, unspecified with intoxication, uncomplicated Chest pain Qualifiers: Chest pain type: unspecified Qualified Code(s): R07.9 - Chest pain, unspecified Condition: Stable Disposition: AGAINST MEDICAL ADVICE Instructions: Chest Pain of Unclear Cause ([facility]) Additional Instructions: Follow up with your physician tomorrow for further care or return to the ED IMMEDIATELY if symptoms worsen or new concerns occur. If you cannot afford to follow up with your primary care physician a list of low cost clinics have been provided at the end of your discharge papers as well.
[2016-12-30] MEDS ORDERED: ASPIRIN 81 MG TABLET, CHEWABLE PO ONE (10:13)
[2016-12-30 10:56] LABS: ABSOLUTE BASOPHILS # (AUTO) 0.1 10^3/uL (0.0-0.2); ABSOLUTE EOSINOPHILS # (AUTO) 0.3 10^3/uL (0.0-0.6); ABSOLUTE MONOCYTES (AUTO) 0.9 10^3/uL (0.1-1.4); ABSOLUTE NEUT (AUTO) 5.7 10^3/uL (1.7-8.2); BASOPHILS % (AUTO) 1.2 % (0-2); EOSINOPHILS % (AUTO) 2.7 % (0-6); HEMATOCRIT 40.9 % (37.9-51.0); HEMOGLOBIN 13.7 g/dL (13.5-17.0); HGB HCT DIFFERENCE 0.2; LYMPHOCYTES % (AUTO) 36.4 % (13-45); MEAN CORPUSCULAR HEMOGLOBIN 28.3 pg (27.0-33.4); MEAN CORPUSCULAR HGB CONC 33.4 g/dL (32.0-36.0); MEAN CORPUSCULAR VOLUME 85 fl (80-97); MONOCYTES % (AUTO) 8.1 % (3-13); RED BLOOD COUNT 4.83 10^6/uL (4.35-5.55); SEGMENTED NEUTROPHILS % (AUTO) 51.6 % (42-78)
[2016-12-30 11:09] LABS: ALANINE AMINOTRANSFERASE 26 U/L (21-72); ALBUMIN 4.4 g/dL (3.5-5.0); ALKALINE PHOSPHATASE 128 U/L (38-126); ANION GAP 19 (5-19); ASPARTATE AMINO TRANSFERASE 28 U/L (17-59); BILIRUBIN,DIRECT 0.3 mg/dL (0.0-0.4); BILIRUBIN,TOTAL 0.6 mg/dL (0.2-1.3); BLOOD UREA NITROGEN 11 mg/dL (7-20); CALCIUM 9.3 mg/dL (8.4-10.2); CARBON DIOXIDE 18 mmol/L (22-30); CHLORIDE 101 mmol/L (98-107); CREATINE KINASE 246 U/L (55-170); CREATININE RESULT 0.77 mg/dL (0.52-1.25); GLUCOSE 170 mg/dL (75-110); POTASSIUM 4.4 mmol/L (3.6-5.0); SODIUM 137.7 mmol/L (137-145); TOTAL PROTEIN 7.4 g/dL (6.3-8.2)
[2016-12-30 11:21] LABS: CREATINE KINASE MB 1.52 ng/mL (<4.55); TROPONIN I < 0.012 ng/mL
[2016-12-30 11:39] VITALS: BP 110/70
--- NOTE | 2016-12-30 11:51 | RADIOLOGY REPORT (SQ) ---
EXAM DESCRIPTION: CHEST SINGLE VIEW COMPLETED DATE/TIME: 12/30/2016 10:49 am REASON FOR STUDY: chest pain COMPARISON: AP chest 12/29/2016, 11/27/2016 EXAM PARAMETERS: NUMBER OF VIEWS: One view. TECHNIQUE: Single frontal radiographic view of the chest acquired. RADIATION DOSE: NA LIMITATIONS: None. FINDINGS: LUNGS AND PLEURA: No opacities, masses or pneumothorax. No pleural effusion. MEDIASTINUM AND HILAR STRUCTURES: No masses. Contour normal. HEART AND VASCULAR STRUCTURES: Heart normal in size. Normal vasculature. BONES: No acute findings. HARDWARE: None in the chest. OTHER: No other significant finding. IMPRESSION: NO ACUTE RADIOGRAPHIC FINDING IN THE CHEST. TECHNICAL DOCUMENTATION: JOB ID: [id number]
== END 2016-12-30 11:39 | disposition left against medical advice (07) ==
LOC: ER 09:24
DX: F10.920 Alcohol use, unspecified with intoxication, uncomplicated (principal); R07.9 Chest pain, unspecified; F17.210 Nicotine dependence, cigarettes, uncomplicated
CPT/HCPCS: 36415; 71010; 80053; 82550; 82553; 84484; 85025; 99285

== ENCOUNTER 2017-03-15 16:09 | Emergency (ER) | payer OTHER ==
--- NOTE | 2017-03-15 16:23 | ER Document Report ---
ED Psych Disorder / Suicide - General Mode of Arrival: Medic Information source: Patient TRAVEL OUTSIDE OF THE [place] IN LAST 30 DAYS: No - HPI Similar symptoms previously: Yes Recently seen / treated by doctor: Yes <CASE PERES - Last Filed: 03/15/17 17:02> <ENID HERNANDEZ - Last Filed: 03/15/17 17:56> <ALOKATERINAFOREST - Last Filed: 03/15/17 20:18> - General Chief Complaint: Psych Problem Stated Complaint: POSSIBLE ETOH Time Seen by Provider: 03/15/17 16:30 - HPI Notes: Patient is a 46-year-old male presenting to the emergency department for alcohol abuse. Patient states he has been drinking since Sunday night and is wanting to get help today. Patient states that he has been drinking 2/5 of liquor that he started on Sunday and finished today about 1 hour prior to arrival. Patient states he is also been drinking beer. Patient is well-known to this emergency department for multiple similar visits. Patient states that his dad is telling him to quit as well. Patient resides at his dad's house. Patient states he contacted EMS to seek help for his alcohol abuse. Patient also smokes 1 pack per day. Patient also has a warrant out for his arrest currently. (CASE PERES) Met with Patient who advised he has been drinking liquor since Sunday. He stated he is a binge drinker and had been sober for a month prior to relapsing on Sunday. He stated he and his father got into an argument which led him into the current binge. He reported drinking 3 1/5 bottles of liquor without any food intake during the same time period. He initially reported he was interested in getting help for his detox but later changed his mind. 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 He denied any other previous legal charges , though I was advised the Patient had an outstanding warrant with the [employer] and they requested to be notified upon his discharge. Patient's lab work revealed a SPEEDY >200 which is consistent with Patient's report of continued drinking. He reported a history of binge drinking and initially wanting help but then stated he wanted to leave and return home, and no longer wanted assistance with his alcohol problem. He refused to elaborate on his change of mind. Patient was alter and oriented to person, place, time, and circumstance. Mood was labile, vacillating between angry and irritable to cooperative. He admitted to stating he was suicidal at admission but denied it time of interview, though stating nothing had changed. He denied homicidal ideation, intent or plan. He denied auditory / visual hallucination and no delusions were observed or noted. Thought processes were linear, rational, and organized. Conversational speech was within normal limits for rate, tone, and prosody despite the Patient having no teeth. Intellectual abilities were estimated within the low average range. Memory was within normal limits for immediate, recent, and remote recall. Attention and concentration was within normal limits while insight, judgment, and impulse control were noted to be poor. 1. 305.00 Alcohol Use Disorder Impression / Plan: Patient is psychiatrically clear for discharge. He refused referral information for detox or mental health services. He denied suicidal / homicidal ideation. He was discharged to [facility] secondary to a warrant for his arrest./ He was medically cleared by the ED Physician who was in agreement with disposition and recommendation. (FOREST NATHAN) - Related Data Allergies/Adverse Reactions: No Known Allergies Allergy (Verified 12/29/16 20:06) Past Medical History - General Information source: Patient - Social History Smoking Status: Current Every Day Smoker Cigarette use (# per day): Yes - 1 ppd Chew tobacco use (# tins/day): No Smoking Education Provided: No Frequency of alcohol use: Heavy Drug Abuse: None Family History: CAD, DM, Hyperlipidemia, Hypertension - Past Medical History Cardiac Medical History: Reports: Hx Hypertension Musculoskeltal Medical History: Reports Hx Arthritis, Reports Hx Musculoskeletal Trauma Psychiatric Medical History: Reports: Hx Anxiety, Hx Depression Traumatic Medical History: Reports: Hx Fractures Past Surgical History: Reports: Hx Orthopedic Surgery - right knee - Immunizations Hx Diphtheria, Pertussis, Tetanus Vaccination: Yes <CASE PERES - Last Filed: 03/15/17 17:02> Review of Systems - Review of Systems Constitutional: No symptoms reported, Other - Intoxicated EENT: No symptoms reported Cardiovascular: No symptoms reported Respiratory: No symptoms reported Gastrointestinal: No symptoms reported Genitourinary: No symptoms reported Male Genitourinary: No symptoms reported Musculoskeletal: No symptoms reported Skin: No symptoms reported Hematologic/Lymphatic: No symptoms reported Neurological/Psychological: See HPI, Other - Substance abuse -: Yes All other systems reviewed and negative <CASE PERES - Last Filed: 03/15/17 17:02> Physical Exam - Vital signs Interpretation: Normal <CASE PERES - Last Filed: 03/15/17 17:02> <ENID HERNANDEZ - Last Filed: 03/15/17 17:56> <ALOKATERINAFOREST - Last Filed: 03/15/17 20:18> - Vital signs Vitals: Pulse Resp BP Pulse Ox 100 18 126/73 H 94 03/15/17 16:47 03/15/17 16:47 03/15/17 16:47 03/15/17 16:47 - Notes Notes: GENERAL: Alert, interacts well, intoxicated, blurry eyes. No acute distress. HEAD: Normocephalic, atraumatic. EYES: Appear blurry. Pupils equal, round, and reactive to light. ENT: Moist mucus membranes, tongue midline. NECK: Full range of motion. Supple. Trachea midline. LUNGS: Clear to auscultation bilaterally, no wheezes, rales, or rhonchi. No respiratory distress. Non-productive cough in room. HEART: Regular rate and rhythm. No murmurs, gallops, or rubs. ABDOMEN: Obese. Soft, non-tender. Non-distended. Normal bowel sounds. EXTREMITIES: Moves all 4 extremities spontaneously. Normal strength. No edema. NEUROLOGICAL: Alert and oriented x3. Normal speech. No focal neurological deficits. GSC 15. PSYCH: Normal affect, normal mood. SKIN: Warm, dry, normal turgor. No rashes or lesions noted. (JACASE) Course - Laboratory Result Diagrams: 03/15/17 16:33 03/15/17 16:33 <CASE PERES - Last Filed: 03/15/17 17:02> - Laboratory Result Diagrams: 03/15/17 16:33 03/15/17 16:33 - EKG Interpretation by Ms EKG shows normal: Sinus rhythm, [place], Intervals, QRS Complexes, ST-T Waves Rate: Normal - 97 Rhythm: NSR <DAVIDENID - Last Filed: 03/15/17 17:56> - Laboratory Result Diagrams: 03/15/17 16:33 03/15/17 16:33 <FOREST NATHAN - Last Filed: 03/15/17 20:18> - Vital Signs Vital signs: Temp Pulse Resp BP Pulse Ox 100 18 126/73 H 94 03/15/17 16:47 03/15/17 16:47 03/15/17 16:47 03/15/17 16:47 - Laboratory Laboratory results interpreted by me: 03/15/17 03/15/17 03/15/17 16:33 16:33 17:05 WBC 14.8 H Absolute Neutrophils 9.6 H Sodium 135.3 L Chloride 96 L Carbon Dioxide 17 L Anion Gap 22 H Glucose 245 H Urine Protein 30 H Urine Glucose (UA) >=500 H Urine Ketones 20 H Salicylates < 1.0 L Acetaminophen < 10 L Discharge <CASE PERES - Last Filed: 03/15/17 17:02> <ENID HERNANDEZ - Last Filed: 03/15/17 17:56> <FORETS NATHAN - Last Filed: 03/15/17 20:18> - Discharge Clinical Impression: Acute alcohol intoxication Additional Instructions: Acute Alcohol Intoxication: Your evaluation revealed very high levels of alcohol. You can from drinking a large amount of alcohol rapidly! Further, there's the risk of falls , traffic accidents, and fights. A high portion (about 50 percent) of the serious injuries seen in hospital emergency rooms are caused by alcohol. Alcohol overdosage is usually due to an underlying emotional or psychiatric problem. You may benefit from counselling. If "binge" drinking is an ongoing problem for you, or if you drink ANY AMOUNT of alcohol EVERY day, you most likely have a tendency to alcoholism. You should avoid alcohol totally. We can refer you for treatment. Persons with alcohol problems are often also prone to other addictions -- you should discuss any use of medications or drugs with the doctor. You should be watched at home for the next several hours by someone who has not been drinking. Get extra fluids for the next 24 hours. Call the doctor if there is repeated vomiting, increasing headache, decreasing level of alertness, or any other worsening. Follow up with [facility] to get help and stopping your alcohol abuse. Scribe Attestation: 03/15/17 17:00 I personally performed the services described in the documentation, reviewed and edited the documentation which was dictated to the scribe in my presence, and it accurately records my words and actions. (ENID HERNANDEZ) Scribe Documentation - Scribe Written by Kayla:: Kayla Ly 03/15/2017 17:09 acting as scribe for :: David <CASE PERES - Last Filed: 03/15/17 17:02>
[2017-03-15 16:47] LABS: ABSOLUTE BASOPHILS # (AUTO) 0.2 10^3/uL (0.0-0.2); ABSOLUTE EOSINOPHILS # (AUTO) 0.1 10^3/uL (0.0-0.6); ABSOLUTE LYMPHOCYTES (AUTO) 3.7 10^3/uL (0.5-4.7); ABSOLUTE MONOCYTES (AUTO) 1.2 10^3/uL (0.1-1.4); ABSOLUTE NEUT (AUTO) 9.6 10^3/uL (1.7-8.2); BASOPHILS % (AUTO) 1.5 % (0-2); EOSINOPHILS % (AUTO) 0.6 % (0-6); HEMATOCRIT 39.5 % (37.9-51.0); HGB HCT DIFFERENCE 2.5; LYMPHOCYTES % (AUTO) 25.1 % (13-45); MEAN CORPUSCULAR HEMOGLOBIN 29.8 pg (27.0-33.4); MEAN CORPUSCULAR HGB CONC 35.3 g/dL (32.0-36.0); MEAN CORPUSCULAR VOLUME 84 fl (80-97); MONOCYTES % (AUTO) 8.4 % (3-13); RED BLOOD COUNT 4.69 10^6/uL (4.35-5.55); RED CELL DISTRIBUTION WIDTH 13.6 % (11.5-14.0); SEGMENTED NEUTROPHILS % (AUTO) 64.4 % (42-78); WHITE BLOOD COUNT 14.8 10^3/uL (4.0-10.5)
[2017-03-15 16:51] VITALS: BP 126/73
[2017-03-15 17:00] LABS: ALANINE AMINOTRANSFERASE 36 U/L (21-72); ALBUMIN 4.8 g/dL (3.5-5.0); ALCOHOL 235 mg/dL (NONE DETECTED); ALKALINE PHOSPHATASE 124 U/L (38-126); ASPARTATE AMINO TRANSFERASE 31 U/L (17-59); BILIRUBIN,DIRECT 0.4 mg/dL (0.0-0.4); BILIRUBIN,TOTAL 0.6 mg/dL (0.2-1.3); BLOOD UREA NITROGEN 14 mg/dL (7-20); CALCIUM 9.6 mg/dL (8.4-10.2); CREATININE RESULT 0.76 mg/dL (0.52-1.25); GLUCOSE 245 mg/dL (75-110); TOTAL PROTEIN 7.5 g/dL (6.3-8.2)
[2017-03-15 17:17] LABS: ANION GAP 22 (5-19); CHLORIDE 96 mmol/L (98-107)
[2017-03-15 17:18] LABS: CARBON DIOXIDE 17 mmol/L (22-30); SODIUM 135.3 mmol/L (137-145)
[2017-03-15 17:30] LABS: APPEARANCE,URINE CLEAR; BILIRUBIN,URINE NEGATIVE (NEGATIVE); GLUCOSE, URINE >=500 mg/dL (NEGATIVE); KETONES,URINE 20 mg/dL (NEGATIVE); LEUKOCYTE ESTERASE,URINE NEGATIVE (NEGATIVE); NITRITE,URINE NEGATIVE (NEGATIVE); PROTEIN,URINE 30 mg/dL (NEGATIVE); URINE SPECIFIC GRAVITY 1.017; UROBILINOGEN,URINE NEGATIVE mg/dL (<2.0)
[2017-03-15 17:36] LABS: URINE BARBITURATES SCREEN NEGATIVE; URINE METHADONE SCREEN NEGATIVE; URINE OPIATES LOW NEGATIVE; URINE PHENCYCLIDINE SCREEN NEGATIVE
--- NOTE | 2017-03-15 20:37 | EKG REPORT ---
SEVERITY:- NORMAL ECG - SINUS RHYTHM : Confirmed by: Meli Jeninngs 15-Mar-2017 20:36:22
== END 2017-03-15 18:04 | disposition home or self-care (01) ==
LOC: ER 16:09
DX: F10.120 Alcohol abuse with intoxication, uncomplicated (principal); F17.210 Nicotine dependence, cigarettes, uncomplicated
CPT/HCPCS: 36415; 80053; 80307; 81001; 85025; 93005; 93010; 99284

== ENCOUNTER 2018-03-18 13:23 | Emergency (ER) | payer SELFPAY ==
--- NOTE | 2018-03-18 13:43 | ER Document Report ---
ED Medical Screen (RME) - General Chief Complaint: ETOH Abuse Stated Complaint: ETOH Time Seen by Provider: 03/18/18 13:40 Mode of Arrival: Wheelchair Information source: Patient Notes: 47-year-old man presents presents to the emergency room with chest pain and shortness of breath and right knee pain in the setting of alcohol intoxication. Patient states he normally gets pain when he "drinks a lot". Patient denies any calf pain. He denies any shortness of breath at this time. The patient does appear to be intoxicated. TRAVEL OUTSIDE OF THE [place] IN LAST 30 DAYS: No - Related Data Allergies/Adverse Reactions: No Known Allergies Allergy (Verified 03/18/18 13:33) Past Medical History - Social History Frequency of alcohol use: Heavy Drug Abuse: None - Past Medical History Cardiac Medical History: Reports: Hx Hypertension Renal/ Medical History: Denies: Hx Peritoneal Dialysis Musculoskeltal Medical History: Reports Hx Arthritis, Reports Hx Musculoskeletal Trauma Psychiatric Medical History: Reports: Hx Anxiety, Hx Depression Traumatic Medical History: Reports: Hx Fractures Past Surgical History: Reports: Hx Orthopedic Surgery - right knee - Immunizations Hx Diphtheria, Pertussis, Tetanus Vaccination: Yes
[2018-03-18 14:18] LABS: ABSOLUTE BASOPHILS # (AUTO) 0.2 10^3/uL (0.0-0.2); ABSOLUTE EOSINOPHILS # (AUTO) 0.2 10^3/uL (0.0-0.6); ABSOLUTE MONOCYTES (AUTO) 0.8 10^3/uL (0.1-1.4); ABSOLUTE NEUT (AUTO) 7.1 10^3/uL (1.7-8.2); BASOPHILS % (AUTO) 1.3 % (0-2); EOSINOPHILS % (AUTO) 1.6 % (0-6); HEMATOCRIT 44.4 % (37.9-51.0); HEMOGLOBIN 15.7 g/dL (13.5-17.0); LYMPHOCYTES % (AUTO) 26.8 % (13-45); MEAN CORPUSCULAR HEMOGLOBIN 30.3 pg (27.0-33.4); MEAN CORPUSCULAR HGB CONC 35.3 g/dL (32.0-36.0); MEAN CORPUSCULAR VOLUME 86 fl (80-97); MONOCYTES % (AUTO) 7.1 % (3-13); PLATELET COUNT 305 10^3/uL (150-450); RED BLOOD COUNT 5.17 10^6/uL (4.35-5.55); RED CELL DISTRIBUTION WIDTH 13.3 % (11.5-14.0); SEGMENTED NEUTROPHILS % (AUTO) 63.2 % (42-78); TOTAL CELLS COUNTED % (AUTO) 100 %; WHITE BLOOD COUNT 11.3 10^3/uL (4.0-10.5)
[2018-03-18 14:31] LABS: ALANINE AMINOTRANSFERASE 49 U/L (21-72); ALBUMIN 4.6 g/dL (3.5-5.0); ALCOHOL 279 mg/dL (NONE DETECTED); ALKALINE PHOSPHATASE 129 U/L (38-126); ASPARTATE AMINO TRANSFERASE 45 U/L (17-59); BILIRUBIN,DIRECT 0.4 mg/dL (0.0-0.4); BILIRUBIN,TOTAL 0.5 mg/dL (0.2-1.3); BLOOD UREA NITROGEN 7 mg/dL (7-20); CALCIUM 9.1 mg/dL (8.4-10.2); GLUCOSE 323 mg/dL (75-110); POTASSIUM 4.3 mmol/L (3.6-5.0); TOTAL PROTEIN 7.6 g/dL (6.3-8.2)
[2018-03-18 14:35] LABS: CARBON DIOXIDE 16 mmol/L (22-30); CHLORIDE 97 mmol/L (98-107); SODIUM 136.2 mmol/L (137-145)
[2018-03-18] MEDS ORDERED: FAMOTIDINE INJ/PF 20 MG/2 ML SDV IV ONE (14:36)
[2018-03-18 14:37] LABS: ANION GAP 23 (5-19)
[2018-03-18] MEDS ORDERED: LIDOCAINE 2% VISCOUS SOLN 20 ML UDCUP PO ONE (14:37)
[2018-03-18] MEDS ORDERED: MAG HYDROX/AL HYDROX/SIMETH SUSP 30 ML UDCUP PO ONE (14:37)
--- NOTE | 2018-03-18 14:43 | RADIOLOGY REPORT (SQ) ---
EXAM DESCRIPTION: CHEST 2 VIEWS COMPLETED DATE/TIME: 03/18/2018 2:13 pm REASON FOR STUDY: chest pain COMPARISON: 08/08/2016 EXAM PARAMETERS: NUMBER OF VIEWS: two views TECHNIQUE: Digital Frontal and Lateral radiographic views of the chest acquired. RADIATION DOSE: NA LIMITATIONS: none FINDINGS: LUNGS AND PLEURA: No opacities, masses or pneumothorax. No pleural effusion. MEDIASTINUM AND HILAR STRUCTURES: No masses or contour abnormalities. HEART AND VASCULAR STRUCTURES: Heart normal size. No evidence for failure. BONES: No acute findings. HARDWARE: None in the chest. OTHER: No other significant finding. IMPRESSION: NO ACUTE RADIOGRAPHIC FINDING IN THE CHEST. TECHNICAL DOCUMENTATION: JOB ID: [id number] [employer]- All Rights Reserved Reading location - IP/workstation name: [email or web address]
[2018-03-18] MEDS ORDERED: FAMOTIDINE 20 MG TABLET PO ONE (14:45)
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
--- NOTE | 2018-03-18 14:51 | RADIOLOGY REPORT (SQ) ---
EXAM DESCRIPTION: KNEE RIGHT 3 VIEWS COMPLETED DATE/TIME: 03/18/2018 2:28 pm REASON FOR STUDY: right knee pain COMPARISON: None. NUMBER OF VIEWS: Three views. TECHNIQUE: AP, lateral, and sunrise patella radiographic images acquired of the right knee. LIMITATIONS: None. FINDINGS: MINERALIZATION: Normal. BONES: Hold lateral tibial plateau fracture. No acute abnormality. JOINT: No effusion. SOFT TISSUES: No soft tissue swelling. No radio-opaque foreign body. OTHER: There is a medullary tony in the femur. There is a compression plate on the lateral aspect of the proximal tibia with multiple screws. IMPRESSION: Posttraumatic changes with no acute abnormality. TECHNICAL DOCUMENTATION: JOB ID: [id number] [employer]- All Rights Reserved Reading location - IP/workstation name: [email or web address]
[2018-03-18] MEDS ORDERED: RINGERS SOLUTION,LACTATED 1,000 ML IV PRN (15:35)
[2018-03-18] MEDS ORDERED: MULTIVITAMIN TABLET PO ONE (15:37)
[2018-03-18] MEDS ORDERED: THIAMINE HCL 100 MG TABLET PO ONE (15:37)
[2018-03-18] MEDS ORDERED: MAGNESIUM OXIDE 400 MG TABLET PO ONE (15:37)
[2018-03-18] MEDS ORDERED: NICOTINE 21 MG/24 HR PATCH.TD24 TD ONE (16:20)
[2018-03-18 16:47] LABS: VENOUS BLOOD BASE EXCESS -4.4 mmol/L; VENOUS BLOOD PCO2 35.4 mmHg (35-63); VENOUS BLOOD PH 7.37 (7.30-7.42)
--- NOTE | 2018-03-18 17:15 | EKG REPORT ---
SEVERITY:- OTHERWISE NORMAL ECG - SINUS TACHYCARDIA : Confirmed by: Chalo Zee MD 18-Mar-2018 17:15:20
== END 2018-03-18 17:13 | disposition left against medical advice (07) ==
LOC: ER 13:23
DX: R07.9 Chest pain, unspecified (principal); R73.9 Hyperglycemia, unspecified; M25.561 Pain in right knee; G89.29 Other chronic pain; F10.920 Alcohol use, unspecified with intoxication, uncomplicated; R11.2 Nausea with vomiting, unspecified; F17.200 Nicotine dependence, unspecified, uncomplicated; I10 Essential (primary) hypertension
CPT/HCPCS: 93005; 99284; 96360; 36415; 80307; 83690; 85025; 80053; 84484; 82803; 71046; 73562; 93010; J3490; J7120

== ENCOUNTER 2018-03-19 10:59 | Emergency (ER) | payer SELFPAY ==
[2018-03-19 11:32] VITALS: BP 131/91
--- NOTE | 2018-03-19 12:44 | EKG REPORT ---
SEVERITY:- OTHERWISE NORMAL ECG - SINUS TACHYCARDIA : Confirmed by: Chalo Zee MD 19-Mar-2018 12:43:23
== END 2018-03-19 11:50 | disposition left against medical advice (07) ==
LOC: ER 10:59
DX: Z53.21 Procedure and treatment not carried out due to patient leaving prior to being seen by health care provider (principal)
CPT/HCPCS: 93005; 93010

== ENCOUNTER 2018-04-05 02:10 | Emergency (ER) | payer SELFPAY ==
[2018-04-05] MEDS ORDERED: NORMAL SALINE 1000 ML 1,000 ML IV ONE (02:55)
[2018-04-05] MEDS ORDERED: ONDANSETRON HCL INJ/PF 4 MG/2 ML SDV IV ONE (02:55)
--- NOTE | 2018-04-05 02:57 | ER Document Report ---
ED General - General Chief Complaint: Shortness Of Breath Stated Complaint: BREATHING PROBLEM Time Seen by Provider: 04/05/18 02:45 Notes: Patient is a 47-year-old male that comes emergency department for several complaints. He states he has been drinking alcohol heavily tonight, states he had at least 2 "40s", he states that he also started feeling some shortness of breath, he also states that when he walked after the ambulance he had some pain in his right knee. Right knee pain is chronic for the past 2 years, he denies re -injury tonight. He denies chest pain, vomiting, dizziness, fever, cough. He smokes, drinks alcohol heavily, has a history of hypertension. He also reports his blood glucose was checked and was found to be elevated, he states he was told last visit he has diabetes. He is not on any diabetic medications. He does not have a primary care provider. TRAVEL OUTSIDE OF THE [place] IN LAST 30 DAYS: No - Related Data Allergies/Adverse Reactions: No Known Allergies Allergy (Verified 03/19/18 11:00) Past Medical History - General Information source: Patient - Social History Smoking Status: Current Some Day Smoker Frequency of alcohol use: Heavy Drug Abuse: None Lives with: Alone Family History: CAD, DM, Hyperlipidemia, Hypertension - Past Medical History Cardiac Medical History: Reports: Hx Hypertension Renal/ Medical History: Denies: Hx Peritoneal Dialysis Musculoskeletal Medical History: Reports Hx Arthritis, Reports Hx Musculoskeletal Trauma Psychiatric Medical History: Reports: Hx Anxiety, Hx Depression Traumatic Medical History: Reports: Hx Fractures Past Surgical History: Reports: Hx Orthopedic Surgery - right knee - Immunizations Hx Diphtheria, Pertussis, Tetanus Vaccination: Yes Review of Systems - Review of Systems Constitutional: See HPI EENT: No symptoms reported Cardiovascular: No symptoms reported Respiratory: See HPI Gastrointestinal: No symptoms reported Genitourinary: No symptoms reported Male Genitourinary: No symptoms reported Musculoskeletal: See HPI Skin: No symptoms reported Hematologic/Lymphatic: No symptoms reported Neurological/Psychological: No symptoms reported Physical Exam - Vital signs Vitals: Temp Pulse BP 97.9 F 84 100/67 04/05/18 02:22 04/05/18 02:22 04/05/18 02:22 - Notes Notes: GENERAL: Alert, interacts well. No acute distress. Possible mild intoxication with slightly sluggish response occasionally but not obviously. HEAD: Normocephalic, atraumatic. EYES: Pupils equal, round, and reactive to light. Extraocular movements intact. ENT: Oral mucosa moist, tongue midline. NECK: Full range of motion. Supple. Trachea midline. LUNGS: Clear to auscultation bilaterally, no wheezes, rales, or rhonchi. No respiratory distress. HEART: Regular rate and rhythm. No murmur ABDOMEN: Soft, non-tender. Non-distended. Bowel sounds present in all 4 quadrants. EXTREMITIES: Moves all 4 extremities spontaneously. No edema, normal radial and dorsalis pedis pulses bilaterally. No cyanosis. BACK: no cervical, thoracic, lumbar midline tenderness. No saddle anesthesia, normal distal neurovascular exam. NEUROLOGICAL: Alert and oriented x3. Normal speech. [cranial nerves II through XII grossly intact]. PSYCH: Normal affect, normal mood. SKIN: Warm, dry, normal turgor. No rashes or lesions noted. Course - Re-evaluation Re-evalutation: Patient sitting comfortably on the bed, no tachypnea, no hypoxia, no tachycardia , no hypertension. Other than mild intoxication he is well-appearing. BMP shows mild hyperglycemia without acidosis, chest x-ray unremarkable, EKG sinus rhythm with no T-wave inversions or ST segment changes in consecutive leads. Clear lungs on auscultation. On reevaluation patient is sleeping but easily aroused. Based on his vital signs, evaluation, lack of chest pain, well appearance I have low suspicion of PE, dissection, or ACS. Patient will be monitored until he is clinically sober and able to leave or until he gets a ride. I did discuss with patient his workup in detail, patient states satisfaction, no complaints at this time, states he is ready to leave at any time. - Vital Signs Vital signs: Temp Pulse Resp BP Pulse Ox 97.4 F 77 16 92/59 L 96 04/05/18 05:21 04/05/18 05:21 04/05/18 05:21 04/05/18 05:21 04/05/18 05:21 - Laboratory Result Diagrams: 04/05/18 03:25 Laboratory results interpreted by me: 04/05/18 03:25 Glucose 159 H Discharge - Discharge Clinical Impression: Shortness of breath, Hyperglycemia Alcohol intoxication Qualifiers: Complication of substance-induced condition: uncomplicated Qualified Code(s): F10.920 - Alcohol use, unspecified with intoxication, uncomplicated Condition: Stable Disposition: HOME, SELF-CARE Additional Instructions: Your chest x-ray, EKG, and lab work do not show any concerning abnormal. Your blood sugar is mildly elevated tonight, this will need to be tested and trended by primary care, you may need medications for diabetes to avoid any complications caused by diabetes. Please follow-up with one of the listed primary care referrals closely. Avoid alcohol intoxication. Return if you worsen including vomiting, passing out, difficulty breathing, chest pain, fever , or any other concerning symptoms. Referrals: [facility] [Provider Group] - Follow up as needed [facility] [Provider Group] - Follow up in 1 week
[2018-04-05 03:54] LABS: ANION GAP 12 (5-19); BLOOD UREA NITROGEN 9 mg/dL (7-20); CALCIUM 9.6 mg/dL (8.4-10.2); CARBON DIOXIDE 25 mmol/L (22-30); CHLORIDE 106 mmol/L (98-107); GLUCOSE 159 mg/dL (75-110); POTASSIUM 3.7 mmol/L (3.6-5.0); SODIUM 142.9 mmol/L (137-145)
--- NOTE | 2018-04-05 04:07 | RADIOLOGY REPORT (SQ) ---
EXAM DESCRIPTION: X-ray single view chest CLINICAL HISTORY: 47 years Male, shortness of breath COMPARISON: Prior chest x-ray performed on 03/18/2018. TECHNIQUE: Single portable view of the chest performed on 04/05/2018 at 3:55 AM FINDINGS: The lungs are well expanded and are clear. There is no evidence of a pneumothorax. The cardiac silhouette is normal in size and configuration. The mediastinal contours are normal. No acute osseous abnormality is identified. No focal soft tissue abnormalities are seen. IMPRESSION: No evidence of acute intrathoracic disease. No significant change since the prior study.
[2018-04-05 05:25] VITALS: BP 92/59
--- NOTE | 2018-04-05 10:25 | EKG REPORT ---
SEVERITY:- NORMAL ECG - SINUS RHYTHM : Confirmed by: Lluvia Florian MD 05-Apr-2018 10:24:14
== END 2018-04-05 05:25 | disposition home or self-care (01) ==
LOC: ER 02:10
DX: R06.02 Shortness of breath (principal); R73.9 Hyperglycemia, unspecified; F10.920 Alcohol use, unspecified with intoxication, uncomplicated; F17.200 Nicotine dependence, unspecified, uncomplicated
CPT/HCPCS: 93005; 99285; 96361; 96374; 36415; 80048; 71045; 93010; J2405

== ENCOUNTER 2018-11-28 05:14 | Emergency (ER) | payer SELFPAY ==
[2018-11-28 05:59] LABS: ABSOLUTE BASOPHILS # (AUTO) 0.1 10^3/uL (0.0-0.2); ABSOLUTE EOSINOPHILS # (AUTO) 0.3 10^3/uL (0.0-0.6); ABSOLUTE LYMPHOCYTES (AUTO) 3.7 10^3/uL (0.5-4.7); ABSOLUTE MONOCYTES (AUTO) 0.6 10^3/uL (0.1-1.4); ABSOLUTE NEUT (AUTO) 5.9 10^3/uL (1.7-8.2); BASOPHILS % (AUTO) 1.2 % (0-2); EOSINOPHILS % (AUTO) 2.6 % (0-6); HEMATOCRIT 48.8 % (37.9-51.0); HEMOGLOBIN 16.7 g/dL (13.5-17.0); LYMPHOCYTES % (AUTO) 35.1 % (13-45); MEAN CORPUSCULAR HEMOGLOBIN 29.4 pg (27.0-33.4); MEAN CORPUSCULAR HGB CONC 34.2 g/dL (32.0-36.0); MEAN CORPUSCULAR VOLUME 86 fl (80-97); MONOCYTES % (AUTO) 5.8 % (3-13); PLATELET COUNT 324 10^3/uL (150-450); RED BLOOD COUNT 5.69 10^6/uL (4.35-5.55); RED CELL DISTRIBUTION WIDTH 13.8 % (11.5-14.0); SEGMENTED NEUTROPHILS % (AUTO) 55.3 % (42-78); TOTAL CELLS COUNTED % (AUTO) 100 %; WHITE BLOOD COUNT 10.6 10^3/uL (4.0-10.5)
[2018-11-28] MEDS ORDERED: ONDANSETRON HCL INJ/PF 4 MG/2 ML SDV IV ONE (06:09)
[2018-11-28] MEDS ORDERED: NORMAL SALINE 1000 ML 1,000 ML IV ONE (06:09)
[2018-11-28 06:11] LABS: ALANINE AMINOTRANSFERASE 35 U/L (21-72); ALBUMIN 5.1 g/dL (3.5-5.0); ALKALINE PHOSPHATASE 135 U/L (38-126); ASPARTATE AMINO TRANSFERASE 44 U/L (17-59); BILIRUBIN,DIRECT 0.3 mg/dL (0.0-0.4); BILIRUBIN,TOTAL 0.8 mg/dL (0.2-1.3); BLOOD UREA NITROGEN 9 mg/dL (7-20); CALCIUM 10.1 mg/dL (8.4-10.2); CARBON DIOXIDE 20 mmol/L (22-30); CHLORIDE 97 mmol/L (98-107); GLUCOSE 188 mg/dL (75-110); POTASSIUM 4.5 mmol/L (3.6-5.0); TOTAL PROTEIN 8.3 g/dL (6.3-8.2)
[2018-11-28 06:17] LABS: SODIUM 139.3 mmol/L (137-145)
[2018-11-28 06:18] LABS: ALCOHOL 185 mg/dL (NONE DETECTED); ANION GAP 22 (5-19)
[2018-11-28 06:20] VITALS: BP 128/87
--- NOTE | 2018-11-28 06:36 | EKG REPORT ---
SEVERITY:- DEFECTIVE ECG - SINUS TACHYCARDIA SEVERE BASELINE TREMORS : Confirmed by: Chalo Zee MD 28-Nov-2018 06:35:19
--- NOTE | 2018-12-02 07:36 | ER Document Report ---
Entered by DARLENE JAQUEZ SCRIBE 11/28/18 0601 Acting as scribe for:ENID HERNANDEZ MD ED Substance Abuse / Acc. OD - General Chief Complaint: ETOH Abuse Stated Complaint: ETOH Time Seen by Provider: 11/28/18 05:58 Notes: Patient is a 48-year-old male presenting to the emergency department arriving via EMS complaining of withdrawals and associated nausea from alcohol abuse. Patient states his last alcohol intake was at 02:00 he then proceeded to call EMS and was brought to the emergency department. Patient had stopped drinking before EMS arrived and told them on arrival that he wanted help with his alcohol problem, however he denied wanting help when asked by the physician. TRAVEL OUTSIDE OF THE [place] IN LAST 30 DAYS: No - Related Data Allergies/Adverse Reactions: No Known Allergies Allergy (Verified 11/28/18 05:59) Past Medical History - Social History Smoking Status: Current Every Day Smoker Cigarette use (# per day): Yes Smoking Education Provided: No Frequency of alcohol use: Heavy Family History: CAD, DM, Hyperlipidemia, Hypertension - Past Medical History Cardiac Medical History: Reports: Hx Hypertension Renal/ Medical History: Denies: Hx Peritoneal Dialysis Musculoskeletal Medical History: Reports Hx Arthritis, Reports Hx Musculoskeletal Trauma Psychiatric Medical History: Reports: Hx Anxiety, Hx Depression Traumatic Medical History: Reports: Hx Fractures Past Surgical History: Reports: Hx Orthopedic Surgery - right knee - Immunizations Hx Diphtheria, Pertussis, Tetanus Vaccination: Yes Review of Systems - Review of Systems Constitutional: No symptoms reported EENT: No symptoms reported Cardiovascular: No symptoms reported Respiratory: Cough Gastrointestinal: No symptoms reported Genitourinary: No symptoms reported Musculoskeletal: No symptoms reported Skin: No symptoms reported Hematologic/Lymphatic: No symptoms reported Neurological/Psychological: Depression Physical Exam - Vital signs Vitals: Temp Pulse Resp BP Pulse Ox 98.3 F 113 H 19 138/101 H 97 11/28/18 05:14 11/28/18 05:14 11/28/18 05:14 11/28/18 05:14 11/28/18 05:14 - General General appearance: Alert, Other - Disheveled and intoxicated In distress: None - HEENT Head: Normocephalic, Atraumatic Eyes: Normal Pupils: PERRL Mucous membranes: Dry - Respiratory Respiratory status: No respiratory distress Breath sounds: Other - Some coarse breath sounds Chest palpation: Normal - Cardiovascular Rhythm: Regular Heart sounds: Normal auscultation Murmur: No - Abdominal Inspection: Normal Bowel sounds: Normal Tenderness: Nontender - Back Back: Normal - Extremities General upper extremity: Normal inspection General lower extremity: Normal inspection - Neurological Neuro grossly intact: Yes - Psychological Associated symptoms: Other - She is intoxicated, does seem a little depressed - Skin Skin Temperature: Warm Skin Moisture: Dry Skin Color: Normal Course - Re-evaluation Re-evalutation: 11/28/18 06:41 As I was going to see a chest pain patient, the nurse informed me that this patient stated he needed to leave and was going AGAINST MEDICAL ADVICE. By the time I finished with the patient that I needed to see, the this patient was gone. - Vital Signs Vital signs: Temp Pulse Resp BP Pulse Ox 98.3 F 113 H 24 H 128/87 H 95 11/28/18 05:14 11/28/18 05:14 11/28/18 06:01 11/28/18 06:01 11/28/18 06:01 - Laboratory Result Diagrams: 11/28/18 05:30 11/28/18 05:30 Laboratory results interpreted by me: 11/28/18 11/28/18 05:30 05:30 WBC 10.6 H RBC 5.69 H Chloride 97 L Carbon Dioxide 20 L Anion Gap 22 H Glucose 188 H Alkaline Phosphatase 135 H Total Protein 8.3 H Albumin 5.1 H Discharge - Discharge Clinical Impression: Alcohol intoxication Qualifiers: Complication of substance-induced condition: uncomplicated Qualified Code(s): F10.920 - Alcohol use, unspecified with intoxication, uncomplicated Disposition: ELOPED Scribe Attestation: 11/28/18 06:41 I personally performed the services described in the documentation, reviewed and edited the documentation which was dictated to the scribe in my presence, and it accurately records my words and actions. I personally performed the services described in the documentation, reviewed and edited the documentation which was dictated to the scribe in my presence, and it accurately records my words and actions.
== END 2018-11-28 06:31 | disposition left against medical advice (07) ==
LOC: ER 05:14
DX: F10.120 Alcohol abuse with intoxication, uncomplicated (principal); R11.0 Nausea; F17.210 Nicotine dependence, cigarettes, uncomplicated; I10 Essential (primary) hypertension; R05 Cough; F32.9 Major depressive disorder, single episode, unspecified; Z53.20 Procedure and treatment not carried out because of patient's decision for unspecified reasons
CPT/HCPCS: 36415; 80053; 80307; 85025; 93005; 93010

== ENCOUNTER → 2019-10-31 | Outpatient (CLI) | payer SELFPAY ==
--- NOTE | 2019-10-31 09:38 | ER RDC ASSESSMENT REPORT ---
Intake - In the Last 14 days Have you traveled outside [place]?: No Have you been in close contact with someone CONFIRMED: No Worked in Healthcare?: No - Symptoms Subjective Fever([place] feverish): No Chills: No Muscule Aches: No Runny Nose: Yes Sore Throat: Yes Cough (New or worsening chronic cough): Yes Shortness of breath: No Nausea or Vomiting: No Headache: No Abdominal Pain: No Diarrhea(3 or more loose stools in last 24 hours): No - Do you have any of the following Chronic lung disease: Asthma or emphysema or COPD: No Cystic Fibrosis: No Diabetes: No High Blood Pressure: Yes Cardiovascular Disease: No Chronic Kidney Disease: No Chronic Liver Disease: No Chronic blood disorder like Sickle Cell Disease: No Weak immune system due to disease or medication: No Neurologic condition that limits movement: No Developmental delay - Moderate to Severe: No Morbid Obesity (>100 pounds over ideal weight): No - Objective Temperature: 96.6 F Pulse Rate: 100 Respiratory Rate: 20 Blood Pressure: 125/71 O2 Sat by Pulse Oximetry: 98 Objective: Given above, testing performed: If Testing Performed: Test Specimen Type Sent to General - General Information source: Patient - HPI Onset: Other - 5 days Onset/Duration: Gradual Associated symptoms: Nonproductive cough, Sore throat. denies: Body/muscle aches, Chest pain, Chills Exacerbated by: Denies Relieved by: Denies Similar symptoms previously: Yes Recently seen / treated by doctor: No - Related Data Allergies/Adverse Reactions: No Known Allergies Allergy (Verified 11/28/18 05:59) Past Medical History - General Information source: Patient - Social History Smoking Status: Current Every Day Smoker Family History: CAD, DM, Hyperlipidemia, Hypertension - Past Medical History Cardiac Medical History: Reports: Hx Hypertension Renal/ Medical History: Denies: Hx Peritoneal Dialysis Musculoskeletal Medical History: Reports Hx Arthritis, Reports Hx Musculoskeletal Trauma Psychiatric Medical History: Reports: Hx Anxiety, Hx Depression Traumatic Medical History: Reports: Hx Fractures Past Surgical History: Reports: Hx Orthopedic Surgery - right knee Physical Exam - General General appearance: Appears well, Alert In distress: None Notes: PHYSICAL EXAMINATION: GENERAL: Well-appearing and in no acute distress. HEAD: Atraumatic, normocephalic. EYES: sclera anicteric, conjunctiva are normal. ENT: Clear rhinorrhea. Moist mucous membranes. NECK: Normal range of motion, supple without lymphadenopathy LUNGS: CTAB and equal. No wheezes rales or rhonchi. HEART: Regular rate and rhythm without murmurs EXTREMITIES: Normal range of motion. NEUROLOGICAL: Cranial nerves grossly intact. Normal speech. PSYCH: Normal mood, normal affect. SKIN: Warm, Dry, normal turgor, no rashes or lesions noted Diagnostic Results Laboratory Results: The patient was evaluated during the global Covid 19 pandemic, and that diagnosis was suspected/considered upon their initial presentation. Their evaluation, treatment and testing was consistent with current guidelines for patients who present with complaints or symptoms that may be related to Covid 19. Patient presents with upper respiratory symptoms worrisome for possible Covid 19. Patient does not have emergency worrying symptoms such as difficulty breathing, shortness of breath, chest pain, pressure, confusion or cyanosis. Patient appears suitable for discharge as they are not of an advanced age, do not have any chronic medical conditions such as diabetes, immune deficiency, ch ronic lung disease or chronic kidney disease. Patient's vital signs are stable and patient is nontoxic in appearance. Good return precautions have been discussed with patient, patient verbalized understanding and is agreeable with discharge plan of care at this time. Labs- Entire Visit 10/31/19 10/31/19 09:43 09:43 Influenza A (Rapid) NEGATIVE Influenza B (Rapid) NEGATIVE Group A Strep Rapid NEGATIVE Patient Education/Counseling Counseling/Education: Patient was provided with discharge information including: As a person under investigation for Covid 19, the [place] department of Health and Human Services, division of public health advises you to adhere to the following guidance until your test results are reported to you. If your test result is positive, you will receive additional information from your provider and your local health department at that time. Remain at home until you are cleared by the health provider or public health authorities. Keep a log of visitors to your home, notify any visitors to your home of your isolation status. If you plan to move to a new address or leave the county, notify the local health department in your County. Call your doctor or seek care if you have an urgent medical need. Before seeking medical care, call ahead to get instructions from the provider before arriving at the medical office clinic or hospital. Notify them that you are being tested for the virus that causes Covid 19 so that arrangements can be made, as necessary, to prevent transmission to others in the healthcare setting. Next, notify the local health department in your county. If a medical emergency arises and you need to call 911, inform the first responders that you are being tested for the virus that causes Covid 19. Next, notify the local health department in your county. RDC Discharge - Discharge Clinical Impression: covid 19 screening Upper respiratory infection Qualifiers: URI type: unspecified URI Qualified Code(s): J06.9 - Acute upper respiratory infection, unspecified Condition: Stable Disposition: Home; Selfcare
[2019-10-31 10:10] VITALS: BP 125/71
[2019-10-31 10:45] LABS: A TYPE INFLUENZA AG NEGATIVE (NEGATIVE); B INFLUENZA AG NEGATIVE (NEGATIVE)
== END ==
LOC: RDC 09:30
PROVIDERS: ATTEND Nurse Practitioner Family
DX: J06.9 Acute upper respiratory infection, unspecified (principal); Z20.828 Contact with and (suspected) exposure to other viral communicable diseases; R05 Cough; J02.9 Acute pharyngitis, unspecified; R09.89 Other specified symptoms and signs involving the circulatory and respiratory systems; I10 Essential (primary) hypertension; F17.200 Nicotine dependence, unspecified, uncomplicated; Z82.49 Family history of ischemic heart disease and other diseases of the circulatory system
CPT/HCPCS: 87070; 87635; 87804; 87880; 99211

== ENCOUNTER 2020-01-26 10:10 | Emergency (ER) | payer SELFPAY ==
--- NOTE | 2020-01-26 10:55 | ER Document Report ---
HPI - HPI Time Seen by Provider: 01/26/20 10:51 Pain Level: 4 Notes: CHIEF COMPLAINT: Right foot pain for 4 days HPI: 49-year-old male presenting to the emergency department complaining of pain to a specific area on the plantar aspect of the right foot over the last for 5 days. No trauma. Patient states it hurts to walk. Did not go to his primary care provider for evaluation of this issue ROS: See HPI - all other systems were reviewed and are otherwise negative Constitutional: no fever Integumentary: no rash Allergy: no hives Musculoskeletal: + extremity pain or swelling Neurological: no numbness/tingling, no weakness MEDICATIONS: I agree with the patient medications as charted by the RN. ALLERGIES: I agree with the allergies as charted by the RN. PAST MEDICAL HISTORY/PAST SURGICAL HISTORY: Reviewed and agree as charted by RN. SOCIAL HISTORY: Reviewed and agree as charted by RN. FAMILY HISTORY: No significant familial comorbid conditions directly related to patient complaint EXAM: Reviewed vital signs as charted by RN. CONSTITUTIONAL: Alert and oriented and responds appropriately to questions. Well-appearing; well-nourished HEAD: Normocephalic; atraumatic EYES: Conjunctivae clear, sclerae non-icteric ENT: normal nose; no rhinorrhea; moist mucous membranes NECK: Supple without meningismus CARD: symmetric distal pulses RESP: Normal chest excursion without splinting or tachypnea ABD/GI: non-distended BACK: The back appears normal EXT: Normal ROM in all joints; no cyanosis, no effusions, no edema SKIN: Normal color for age and race; warm; dry; good turgor; small blackened area on the plantar aspect of the left foot more distal and lateral. There is a small hair that appears to be coming from the center of it. Mild tenderness on palpation no definitive palpable foreign body NEURO: Moves all extremities equally; Motor and sensory function intact PSYCH: The patient's mood and manner are appropriate. Grooming and personal hygiene are appropriate. MDM: 49-year-old male with a small tender area on the lateral plantar aspect of the right foot. This may be a plantar wart. Will obtain an x-ray to ensure no foreign body if x-ray negative will discharge home to follow-up with PCP - REPRODUCTIVE Reproductive: DENIES: : Past Medical History - Social History Smoking Status: Current Every Day Smoker Frequency of alcohol use: None Drug Abuse: None Family History: CAD, DM, Hyperlipidemia, Hypertension - Past Medical History Cardiac Medical History: Reports: Hx Hypertension Renal/ Medical History: Denies: Hx Peritoneal Dialysis Musculoskeletal Medical History: Reports Hx Arthritis, Reports Hx Musculoskeletal Trauma Psychiatric Medical History: Reports: Hx Anxiety, Hx Depression Traumatic Medical History: Reports: Hx Fractures Past Surgical History: Reports: Hx Orthopedic Surgery - right knee - Immunizations Hx Diphtheria, Pertussis, Tetanus Vaccination: Yes Vertical Provider Document - INFECTION CONTROL TRAVEL OUTSIDE OF THE [place] IN LAST 30 DAYS: No Course - Re-evaluation Re-evalutation: 01/26/20 11:31 There does appear to be possibly a small foreign body on x-ray. Will have prov iders in the main ER reevaluate patient for possible removal - Vital Signs Vital signs: Temp Pulse Resp BP Pulse Ox 98.7 F 116 H 20 127/89 H 98 01/26/20 10:14 01/26/20 10:14 01/26/20 10:14 01/26/20 10:14 01/26/20 10:14 Discharge - Discharge Referrals: LOCALMD,NO [NO LOCAL MD] - Follow up as needed
--- NOTE | 2020-01-26 11:51 | RADIOLOGY REPORT (SQ) ---
EXAM DESCRIPTION: FOOT RIGHT COMPLETE IMAGES COMPLETED DATE/TIME: 01/26/2020 11:18 am REASON FOR STUDY: plantar foot pain COMPARISON: None. NUMBER OF VIEWS: Three views. TECHNIQUE: AP, lateral and oblique radiographic images acquired of the right foot. LIMITATIONS: None. FINDINGS: MINERALIZATION: Normal. BONES: No acute fracture or dislocation. No worrisome bone lesions. JOINTS: No effusions. SOFT TISSUES: Study demonstrates a radiopaque foreign body lying between the 2nd and 3rd metatarsals. This is close to the skin surface on the ventral aspect of the foot demonstrated on the lateral pro jection. There is soft tissue edema. OTHER: No other significant finding. IMPRESSION: Radiopaque foreign body in the subcutaneous tissues along the ventral aspect of the foot as described. TECHNICAL DOCUMENTATION: JOB ID: [id number] 2010 [employer]- All Rights Reserved Reading location - IP/workstation name: [email or web address]
[2020-01-26] MEDS ORDERED: LIDOCAINE 1% INJ-PF (10 MG/ML) 30 ML SDV INJ ONE (13:39)
--- NOTE | 2020-01-26 13:41 | ER Document Report ---
ED Extremity Problem, Lower - General Chief Complaint: Foot Pain Stated Complaint: FOOT PAIN Time Seen by Provider: 01/26/20 10:51 Primary Care Provider: DANISH GOMEZ [NO LOCAL MD] - Follow up as needed LUIS FELIPE MARINO DO [ACTIVE STAFF] - Follow up as needed Mode of Arrival: Ambulatory Information source: Patient Notes: 49-year-old male past medical history significant for hypertension depression presents emergency room complaining of right foot pain that started last . Patient denies any trauma or injury. Has not been taking anything for the pain. States it hurts to walk. Patient does admit to possibly stepping on a piece of metal about a year ago that went into his right foot. Patient states he was in long-term at the time for DUI got better after he got out so he did not give anymore thought to it. Has not had any issues with it until 4 days ago. He now states that it is red and tender to walk on. Not taking any medications for symptoms. TRAVEL OUTSIDE OF THE [place] IN LAST 30 DAYS: No - Related Data Allergies/Adverse Reactions: No Known Allergies Allergy (Verified 11/28/18 05:59) Past Medical History - General Information source: Patient - Social History Smoking Status: Current Every Day Smoker Frequency of alcohol use: None Drug Abuse: None Family History: CAD, DM, Hyperlipidemia, Hypertension - Past Medical History Cardiac Medical History: Reports: Hx Hypertension Renal/ Medical History: Denies: Hx Peritoneal Dialysis Musculoskeletal Medical History: Reports Hx Arthritis, Reports Hx Musculoskeletal Trauma Psychiatric Medical History: Reports: Hx Anxiety, Hx Depression Traumatic Medical History: Reports: Hx Fractures Past Surgical History: Reports: Hx Orthopedic Surgery - right knee - Immunizations Hx Diphtheria, Pertussis, Tetanus Vaccination: Yes Review of Systems - Review of Systems Constitutional: No symptoms reported Cardiovascular: No symptoms reported Respiratory: No symptoms reported Gastrointestinal: Nausea. denies: Abdominal pain, Vomiting Musculoskeletal: No symptoms reported Skin: No symptoms reported Neurological/Psychological: No symptoms reported -: Yes All other systems reviewed and negative Physical Exam - Vital signs Vitals: Temp Pulse Resp BP Pulse Ox 98.7 F 116 H 20 127/89 H 98 01/26/20 10:14 01/26/20 10:14 01/26/20 10:14 01/26/20 10:14 01/26/20 10:14 - General General appearance: Appears well, Alert In distress: Mild - Respiratory Respiratory status: No respiratory distress Chest status: Nontender Breath sounds: Normal Chest palpation: Normal - Cardiovascular Rhythm: Regular Heart sounds: Normal auscultation Murmur: No - Extremities General upper extremity: Normal inspection Foot: Tender - Full of right midfoot with a small puncture wound that is noted. It is erythematous and tender to palpation. There is no active discharge or draining noted. - Neurological Neuro grossly intact: Yes Cognition: Normal Orientation: AAOx4 [place] Coma Scale Eye Opening: Spontaneous John Coma Scale Verbal: Oriented [place] Coma Scale Motor: Obeys Commands [place] Coma Scale Total: 15 Speech: Normal Motor strength normal: LUE, RUE, LLE, RLE Sensory: Normal Notes: Positive right pedal pulse. Capillary refill less than 3 seconds. - Skin Skin Temperature: Warm Skin Moisture: Dry Skin Color: Erythema Skin irregularity: Tender indurated area Location of irregularity: Other - Right foot Irregularity with: Tenderness. negative: Warmth Course - Re-evaluation Re-evalutation: 01/26/20 14:36 Unsuccessful attempt to locate foreign body that was noted on the x-ray to the right foot. Patient was counseled on warm soaks 20 minutes 3 times a day. Take antibiotics as prescribed. Outpatient follow-up with orthopedist if not improving in 2 to 3 days. On-call physician was provided. Patient was given strict return to the emergency room guidelines. Return for any new or worsening symptoms. All questions were answered. Patient verbalized understanding and agrees with plan of care. - Vital Signs Vital signs: Temp Pulse Resp BP Pulse Ox 98.3 F 87 18 145/88 H 98 01/26/20 15:06 01/26/20 15:06 01/26/20 15:06 01/26/20 15:06 01/26/20 15:06 - Diagnostic Test Radiology reviewed: Reports reviewed Discharge - Discharge Clinical Impression: Foreign body in right foot Qualifiers: Encounter type: initial encounter Qualified Code(s): S90.851A - Superficial foreign body, right foot, initial encounter Condition: Stable Disposition: HOME, SELF-CARE Instructions: Foreign Body ([facility]) Additional Instructions: Patient was counseled that I was unable to locate the foreign body in his foot that was noted on the x-ray. Patient was counseled to do warm soaks 20 minutes 3 times a day. Outpatient follow-up with orthopedics as discussed. Take antibiotics as prescribed. Tylenol and or Motrin as needed for pain. Return to the emergency room for any new or worsening symptoms. Prescriptions: Cephalexin Monohydrate [Keflex 500 mg Capsule] 500 mg PO QID 10 Days #40 capsule Forms: Return to Work Referrals: DANISH GOMEZ [NO LOCAL MD] - Follow up as needed LUIS FELIPE MARINO DO [ACTIVE STAFF] - Follow up as needed
[2020-01-26 15:09] VITALS: BP 145/88
== END 2020-01-26 15:08 | disposition home or self-care (01) ==
LOC: ER 10:10
DX: S90.851A Superficial foreign body, right foot, initial encounter (principal); M79.671 Pain in right foot; R11.0 Nausea; X58.XXXA Exposure to other specified factors, initial encounter; I10 Essential (primary) hypertension; F32.9 Major depressive disorder, single episode, unspecified; F17.200 Nicotine dependence, unspecified, uncomplicated
CPT/HCPCS: 99283

== ENCOUNTER 2020-02-09 04:02 | Emergency (ER) | payer SELFPAY ==
[2020-02-09 04:20] LABS: ABSOLUTE BASOPHILS # (AUTO) 0.1 10^3/uL (0.0-0.2); ABSOLUTE EOSINOPHILS # (AUTO) 0.2 10^3/uL (0.0-0.6); ABSOLUTE LYMPHOCYTES (AUTO) 4.1 10^3/uL (0.5-4.7); ABSOLUTE MONOCYTES (AUTO) 0.8 10^3/uL (0.1-1.4); ABSOLUTE NEUT (AUTO) 7.1 10^3/uL (1.7-8.2); BASOPHILS % (AUTO) 1.1 % (0-2); EOSINOPHILS % (AUTO) 1.6 % (0-6); HEMATOCRIT 44.9 % (37.9-51.0); HEMOGLOBIN 15.6 g/dL (13.5-17.0); LYMPHOCYTES % (AUTO) 33.2 % (13-45); MEAN CORPUSCULAR HEMOGLOBIN 31.1 pg (27.0-33.4); MEAN CORPUSCULAR HGB CONC 34.8 g/dL (32.0-36.0); MEAN CORPUSCULAR VOLUME 89 fl (80-97); MONOCYTES % (AUTO) 6.5 % (3-13); PLATELET COUNT 278 10^3/uL (150-450); RED BLOOD COUNT 5.02 10^6/uL (4.35-5.55); RED CELL DISTRIBUTION WIDTH 13.6 % (11.5-14.0); SEGMENTED NEUTROPHILS % (AUTO) 57.6 % (42-78); TOTAL CELLS COUNTED % (AUTO) 100 %; WHITE BLOOD COUNT 12.3 10^3/uL (4.0-10.5)
[2020-02-09 04:37] LABS: ALBUMIN 4.5 g/dL (3.5-5.0); ALKALINE PHOSPHATASE 123 U/L (38-126); ANION GAP 17 (5-19); ASPARTATE AMINO TRANSFERASE 43 U/L (17-59); BLOOD UREA NITROGEN 5 mg/dL (7-20); CALCIUM 8.9 mg/dL (8.4-10.2); CARBON DIOXIDE 20 mmol/L (22-30); CHLORIDE 99 mmol/L (98-107); CREATINE KINASE 301 U/L (55-170); GLUCOSE 256 mg/dL (75-110); TOTAL PROTEIN 7.3 g/dL (6.3-8.2)
--- NOTE | 2020-02-09 04:47 | ER Document Report ---
Entered by ELIZABETH AVALOS SCRIBE 02/09/20 0417 Acting as scribe for:SULAIMAN SCHMITT IV, MD ED General - General Chief Complaint: Chest Pain Stated Complaint: CHEST PAIN Time Seen by Provider: 02/09/20 04:13 Mode of Arrival: Medic Information source: Patient, Emergency Med Personnel Notes: This 49 year old male patient brought in by EMS presents to the ED today with complaints of mid-sternal chest pain for the last x2 days, worse this morning. Patient states that the pain does not radiate and denies shortness of breath or nausea. Patient received 324 mg Aspirin and x2 SL Nitroglycerin via EMS. Patient is still complaining of pain at this time. ED nurse reports that the patient did fall recently and hit his chest. Patient admits to ED nurse that he has been drinking heavily for last x1 week. TRAVEL OUTSIDE OF THE [place] IN LAST 30 DAYS: No - Related Data Allergies/Adverse Reactions: No Known Allergies Allergy (Verified 11/28/18 05:59) Past Medical History - General Information source: Emergency Med Personnel - Social History Smoking Status: Unknown if Ever Smoked Smoking Education Provided: No Frequency of alcohol use: Heavy Family History: Reviewed & Not Pertinent, CAD, DM, Hyperlipidemia, Hypertension Patient has suicidal ideation: No Patient has homicidal ideation: No - Past Medical History Cardiac Medical History: Reports: Hx Hypertension Musculoskeletal Medical History: Reports Hx Arthritis, Reports Hx Musculoskeletal Trauma Psychiatric Medical History: Reports: Hx Anxiety, Hx Depression Traumatic Medical History: Reports: Hx Fractures Past Surgical History: Reports: Hx Orthopedic Surgery - right knee - Immunizations Hx Diphtheria, Pertussis, Tetanus Vaccination: Yes Review of Systems - Review of Systems Constitutional: No symptoms reported EENT: No symptoms reported Cardiovascular: See HPI, Chest pain Respiratory: See HPI. denies: Short of breath Gastrointestinal: See HPI. denies: Nausea Genitourinary: No symptoms reported Male Genitourinary: No symptoms reported Musculoskeletal: No symptoms reported Skin: No symptoms reported Hematologic/Lymphatic: No symptoms reported Neurological/Psychological: No symptoms reported -: Yes All other systems reviewed and negative Physical Exam - Vital signs Vitals: Temp 98.7 F 02/09/20 04:02 - General General appearance: Alert In distress: None - HEENT Head: Normocephalic, Atraumatic Eyes: Normal Pupils: PERRL - Respiratory Respiratory status: No respiratory distress Chest status: Nontender Breath sounds: Normal Chest palpation: Normal - Cardiovascular Rhythm: Regular Heart sounds: Normal auscultation Murmur: No Friction rub: No Gallop: None auscultated - Abdominal Inspection: Normal Distension: No distension Bowel sounds: Normal Tenderness: Nontender - Abdomen soft Organomegaly: No organomegaly - Back Back: Normal, Nontender - Extremities General upper extremity: Normal inspection General lower extremity: Normal inspection - Neurological Neuro grossly intact: Yes - Psychological Associated symptoms: Normal affect, Normal mood - Skin Skin Temperature: Warm Skin Moisture: Dry Skin Color: Normal Course - Re-evaluation Re-evalutation: 02/09/20 04:47 This MD was notified by nursing that the patient eloped. - Vital Signs Vital signs: Temp Pulse Resp BP Pulse Ox 98.7 F 02/09/20 04:02 - Laboratory Result Diagrams: 02/09/20 04:08 02/09/20 04:08 Laboratory results interpreted by me: 02/09/20 02/09/20 04:08 04:08 WBC 12.3 H Sodium 136.2 L Carbon Dioxide 20 L BUN 5 L Glucose 256 H Creatine Kinase 301 H Discharge - Discharge Clinical Impression: Chest pain Qualifiers: Chest pain type: unspecified Qualified Code(s): R07.9 - Chest pain, unspecified Disposition: AGAINST MEDICAL ADVICE I personally performed the services described in the documentation, reviewed and edited the documentation which was dictated to the scribe in my presence, and it accurately records my words and actions.
[2020-02-09 04:48] LABS: CREATINE KINASE MB 1.32 ng/mL (<4.55)
[2020-02-09 04:52] LABS: TROPONIN I < 0.012 ng/mL
== END 2020-02-09 04:45 | disposition left against medical advice (07) ==
LOC: ER 04:02
DX: R07.9 Chest pain, unspecified (principal); W19.XXXA Unspecified fall, initial encounter; I10 Essential (primary) hypertension; Z53.20 Procedure and treatment not carried out because of patient's decision for unspecified reasons
CPT/HCPCS: 36415; 80053; 82550; 82553; 84484; 85025; 99281

== ENCOUNTER 2020-02-13 00:36 | Emergency (ER) | payer SELFPAY | END 2020-02-13 05:41 | disposition left against medical advice (07) | LOC: ER 00:36 | DX: Z53.21 Procedure and treatment not carried out due to patient leaving prior to being seen by health care provider (principal) ==

== ENCOUNTER 2020-02-19 02:45 | Emergency (ER) | payer SELFPAY ==
[2020-02-19] MEDS ORDERED: ONDANSETRON HCL INJ/PF 4 MG/2 ML SDV IV ONE (02:58)
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
[2020-02-19 03:43] LABS: ALBUMIN 3.9 g/dL (3.5-5.0); ALKALINE PHOSPHATASE 110 U/L (38-126); ANION GAP 12 (5-19); ASPARTATE AMINO TRANSFERASE 88 U/L (17-59); BILIRUBIN,DIRECT 0.2 mg/dL (0.0-0.4); BILIRUBIN,TOTAL 0.7 mg/dL (0.2-1.3); BLOOD UREA NITROGEN 7 mg/dL (7-20); CALCIUM 8.3 mg/dL (8.4-10.2); CARBON DIOXIDE 23 mmol/L (22-30); CHLORIDE 98 mmol/L (98-107); GLUCOSE 292 mg/dL (75-110); POTASSIUM 3.4 mmol/L (3.6-5.0); TOTAL PROTEIN 6.5 g/dL (6.3-8.2)
--- NOTE | 2020-02-19 04:19 | RADIOLOGY REPORT (SQ) ---
EXAM DESCRIPTION: XR CHEST 1 VIEW COMPLETED DATE/TME: 02/19/2020 02:58 CLINICAL HISTORY: chest pain COMPARISON: 04/05/2018 FINDINGS: Single frontal radiograph view of the chest. Cardiomediastinal silhouette: Normal size and contour. Lungs: No consolidation, pneumothorax, or pleural effusion. Bones: No acute osseous abnormality. Leads overlie the chest. Upper abdomen: No abnormality identified. IMPRESSION: 1. No acute pulmonary process identified.
[2020-02-19 04:30] LABS: ABSOLUTE EOSINOPHILS # (AUTO) 0.1 10^3/uL (0.0-0.6); ABSOLUTE LYMPHOCYTES (AUTO) 1.9 10^3/uL (0.5-4.7); ABSOLUTE MONOCYTES (AUTO) 0.8 10^3/uL (0.1-1.4); BASOPHILS % (AUTO) 0.5 % (0-2); EOSINOPHILS % (AUTO) 0.6 % (0-6); HEMATOCRIT 43.3 % (37.9-51.0); HEMOGLOBIN 15.2 g/dL (13.5-17.0); LYMPHOCYTES % (AUTO) 21.3 % (13-45); MEAN CORPUSCULAR HEMOGLOBIN 31.7 pg (27.0-33.4); MEAN CORPUSCULAR HGB CONC 35.1 g/dL (32.0-36.0); MEAN CORPUSCULAR VOLUME 90 fl (80-97); MONOCYTES % (AUTO) 9.1 % (3-13); RED BLOOD COUNT 4.79 10^6/uL (4.35-5.55); RED CELL DISTRIBUTION WIDTH 14.9 % (11.5-14.0); SEGMENTED NEUTROPHILS % (AUTO) 68.5 % (42-78); TOTAL CELLS COUNTED % (AUTO) 100 %; WHITE BLOOD COUNT 8.8 10^3/uL (4.0-10.5)
[2020-02-19] MEDS ORDERED: FAMOTIDINE 20 MG TABLET PO ONE (04:42)
[2020-02-19] MEDS ORDERED: SUCRALFATE 1 GM TABLET PO ONE (04:42)
[2020-02-19 04:54] LABS: PLATELET COUNT 91 10^3/uL (150-450)
[2020-02-19] MEDS ORDERED: DIAZEPAM 5 MG TABLET PO ONE (07:02)
[2020-02-19 07:18] LABS: APPEARANCE,URINE CLEAR; BILIRUBIN,URINE NEGATIVE (NEGATIVE); COLOR,URINE YELLOW; GLUCOSE, URINE >=500 mg/dL (NEGATIVE); KETONES,URINE TRACE mg/dL (NEGATIVE); LEUKOCYTE ESTERASE,URINE NEGATIVE (NEGATIVE); NITRITE,URINE NEGATIVE (NEGATIVE); PROTEIN,URINE 30 mg/dL (NEGATIVE); URINE SPECIFIC GRAVITY 1.013; UROBILINOGEN,URINE NEGATIVE mg/dL (<2.0)
--- NOTE | 2020-02-19 07:21 | EKG REPORT ---
SEVERITY:- NORMAL ECG - SINUS RHYTHM : Confirmed by: Chalo Zee MD 19-Feb-2020 07:20:48
[2020-02-19 07:22] VITALS: BP 148/87
[2020-02-19 07:32] LABS: URINE AMPHETAMINES SCREEN NEGATIVE; URINE BARBITURATES SCREEN NEGATIVE; URINE BENZODIAZEPINES SCREEN NEGATIVE; URINE COCAINE SCREEN NEGATIVE; URINE MARIJUANA (THC) SCREEN NEGATIVE; URINE METHADONE SCREEN NEGATIVE; URINE PHENCYCLIDINE SCREEN NEGATIVE
== END 2020-02-19 08:11 | disposition home or self-care (01) ==
LOC: ER 02:45
DX: F10.229 Alcohol dependence with intoxication, unspecified (principal); R07.9 Chest pain, unspecified; R10.10 Upper abdominal pain, unspecified; R10.84 Generalized abdominal pain; R11.0 Nausea; F17.200 Nicotine dependence, unspecified, uncomplicated; Z79.899 Other long term (current) drug therapy; I10 Essential (primary) hypertension; F32.9 Major depressive disorder, single episode, unspecified
CPT/HCPCS: 93005; 99285; 96374; 36415; 80307 ×2; 83690; 85025; 80053; 81001; 84484; 71045; 93010; J2405

== ENCOUNTER 2020-02-20 14:10 | Emergency (ER) | payer SELFPAY ==
--- NOTE | 2020-02-20 15:49 | ER Document Report ---
ED Medical Screen (RME) - General Stated Complaint: BURNING THROAT/SHOULDER PAIN Time Seen by Provider: 02/20/20 15:47 TRAVEL OUTSIDE OF THE [place] IN LAST 30 DAYS: No - HPI Notes: 02/20/20 15:47 41-year-old male with a history of hypertension presents emergency room via EMS for complaints of bilateral chest pain that started 2 hours ago, which prompted him to call EMS and also states that he needed a ride to the emergency check on his father who was here in the emergency room. patient states that his chest pain has resolved since coming to the emergency room. Denies any shortness of breath, nausea vomiting diarrhea, headache, blurred vision double vision or loss of vision. Patient is a poor historian. Denies any fevers or chills. I have greeted and performed a rapid initial assessment of this patient. A comprehensive ED assessment and evaluation of the patient, analysis of test results and completion of the medical decision making process will be conducted by additional ED providers. PHYSICAL EXAMINATION: GENERAL: Well-appearing, well-nourished and in no acute distress CV: s1, s2 regular LUNGS: No respiratory distress - Related Data Allergies/Adverse Reactions: No Known Allergies Allergy (Verified 11/28/18 05:59) Past Medical History - Past Medical History Cardiac Medical History: Reports: Hx Hypertension Renal/ Medical History: Denies: Hx Peritoneal Dialysis Musculoskeltal Medical History: Reports Hx Arthritis, Reports Hx Musculoskeletal Trauma Psychiatric Medical History: Reports: Hx Anxiety, Hx Depression Traumatic Medical History: Reports: Hx Fractures Past Surgical History: Reports: Hx Orthopedic Surgery - right knee - Immunizations Hx Diphtheria, Pertussis, Tetanus Vaccination: Yes
== END 2020-02-20 15:48 | disposition left against medical advice (07) ==
LOC: ER 14:10
DX: R07.9 Chest pain, unspecified (principal); I10 Essential (primary) hypertension; Z53.20 Procedure and treatment not carried out because of patient's decision for unspecified reasons
CPT/HCPCS: 99281

== ENCOUNTER 2020-02-22 10:16 | Emergency (ER) | payer SELFPAY ==
[2020-02-22] MEDS ORDERED: NORMAL SALINE 1000 ML 1,000 ML IV ONE (10:26)
--- NOTE | 2020-02-22 10:29 | ER Document Report ---
ED Medical Screen (RME) - General Chief Complaint: Chest Pain Stated Complaint: CHEST PAIN Time Seen by Provider: 02/22/20 10:22 Mode of Arrival: Medic Information source: Patient Notes: 49-year-old male presented to ED for chest pain. He has been here multiple times within the last couple weeks for the same pain. He states that the pain started about 2 hours this time. He is intoxicated at this time. His blood sugar in EMS was 446 and he got 324 of aspirin and fluids. His lactic lactate was 2.7. His temperature was 98.6 per EMS. We will get air labs EKG and blood work. I have greeted and performed a rapid initial assessment of this patient. A comprehensive ED assessment and evaluation of the patient, analysis of test results and completion of medical decision making process will be conducted by an additional ED providers. TRAVEL OUTSIDE OF THE [place] IN LAST 30 DAYS: No - Related Data Allergies/Adverse Reactions: No Known Allergies Allergy (Verified 11/28/18 05:59) Past Medical History - Past Medical History Cardiac Medical History: Reports: Hx Hypertension Renal/ Medical History: Denies: Hx Peritoneal Dialysis Musculoskeltal Medical History: Reports Hx Arthritis, Reports Hx Musculoskeletal Trauma Psychiatric Medical History: Reports: Hx Anxiety, Hx Depression Traumatic Medical History: Reports: Hx Fractures Past Surgical History: Reports: Hx Orthopedic Surgery - right knee - Immunizations Hx Diphtheria, Pertussis, Tetanus Vaccination: Yes
[2020-02-22 10:41] LABS: ABSOLUTE BASOPHILS # (AUTO) 0.1 10^3/uL (0.0-0.2); ABSOLUTE EOSINOPHILS # (AUTO) 0.1 10^3/uL (0.0-0.6); ABSOLUTE LYMPHOCYTES (AUTO) 1.6 10^3/uL (0.5-4.7); ABSOLUTE NEUT (AUTO) 6.8 10^3/uL (1.7-8.2); BASOPHILS % (AUTO) 0.6 % (0-2); EOSINOPHILS % (AUTO) 0.7 % (0-6); HEMATOCRIT 42.7 % (37.9-51.0); HEMOGLOBIN 14.8 g/dL (13.5-17.0); LYMPHOCYTES % (AUTO) 16.7 % (13-45); MEAN CORPUSCULAR HEMOGLOBIN 31.7 pg (27.0-33.4); MEAN CORPUSCULAR HGB CONC 34.7 g/dL (32.0-36.0); MEAN CORPUSCULAR VOLUME 91 fl (80-97); MONOCYTES % (AUTO) 10.4 % (3-13); PLATELET COUNT 127 10^3/uL (150-450); RED BLOOD COUNT 4.68 10^6/uL (4.35-5.55); RED CELL DISTRIBUTION WIDTH 15.5 % (11.5-14.0); SEGMENTED NEUTROPHILS % (AUTO) 71.6 % (42-78); TOTAL CELLS COUNTED % (AUTO) 100 %; WHITE BLOOD COUNT 9.5 10^3/uL (4.0-10.5)
[2020-02-22 10:53] LABS: ALBUMIN 4.3 g/dL (3.5-5.0); ALCOHOL 297 mg/dL (NONE DETECTED); ALKALINE PHOSPHATASE 118 U/L (38-126); ANION GAP 17 (5-19); ASPARTATE AMINO TRANSFERASE 184 U/L (17-59); BILIRUBIN,DIRECT 0.2 mg/dL (0.0-0.4); BILIRUBIN,TOTAL 0.8 mg/dL (0.2-1.3); BLOOD UREA NITROGEN 8 mg/dL (7-20); CALCIUM 8.7 mg/dL (8.4-10.2); CARBON DIOXIDE 21 mmol/L (22-30); CHLORIDE 92 mmol/L (98-107); CREATINE KINASE 169 U/L (55-170); POTASSIUM 4.1 mmol/L (3.6-5.0); TOTAL PROTEIN 7.1 g/dL (6.3-8.2)
[2020-02-22] MEDS: NORMAL SALINE 1000 ML 1,000 ML IV PRN ×2 (11:00→14:00)
[2020-02-22 11:02] LABS: GLUCOSE 413 mg/dL (75-110)
--- NOTE | 2020-02-22 11:04 | RADIOLOGY REPORT (SQ) ---
EXAM DESCRIPTION: CHEST SINGLE VIEW IMAGES COMPLETED DATE/TIME: 02/22/2020 10:32 am REASON FOR STUDY: bed 14 chest pain COMPARISON: None. NUMBER OF VIEWS: One view. TECHNIQUE: Single frontal radiographic view of the chest acquired. LIMITATIONS: None. FINDINGS: LUNGS AND PLEURA: No opacities, masses or pneumothorax. No pleural effusion. MEDIASTINUM AND HILAR STRUCTURES: No masses. Contour normal. HEART AND VASCULAR STRUCTURES: Heart normal in size. Normal vasculature. BONES: No acute findings. HARDWARE: None in the chest. OTHER: No other significant finding. IMPRESSION: NO SIGNIFICANT RADIOGRAPHIC FINDING IN THE CHEST. TECHNICAL DOCUMENTATION: JOB ID: [id number] 2010 [employer]- All Rights Reserved Reading location - IP/workstation name: [email or web address]
[2020-02-22 11:05] LABS: TROPONIN I < 0.012 ng/mL
[2020-02-22] MEDS ORDERED: NORMAL SALINE 250 ML IV ONE (11:29)
[2020-02-22 12:01] LABS: VENOUS BLOOD BASE EXCESS -1.8 mmol/L; VENOUS BLOOD HCO3 24.2 mmol/L (20-32); VENOUS BLOOD PCO2 44.9 mmHg (35-63); VENOUS BLOOD PH 7.35 (7.30-7.42)
[2020-02-22 12:08] LABS: APPEARANCE,URINE CLEAR; BILIRUBIN,URINE NEGATIVE (NEGATIVE); COLOR,URINE YELLOW; GLUCOSE, URINE >=500 mg/dL (NEGATIVE); KETONES,URINE NEGATIVE (NEGATIVE); LEUKOCYTE ESTERASE,URINE NEGATIVE (NEGATIVE); NITRITE,URINE NEGATIVE (NEGATIVE); PROTEIN,URINE NEGATIVE (NEGATIVE); URINE SPECIFIC GRAVITY 1.011; UROBILINOGEN,URINE NEGATIVE mg/dL (<2.0)
[2020-02-22 12:19] LABS: URINE AMPHETAMINES SCREEN NEGATIVE; URINE BARBITURATES SCREEN NEGATIVE; URINE BENZODIAZEPINES SCREEN NEGATIVE; URINE COCAINE SCREEN NEGATIVE; URINE MARIJUANA (THC) SCREEN NEGATIVE; URINE METHADONE SCREEN NEGATIVE; URINE PHENCYCLIDINE SCREEN NEGATIVE
[2020-02-22] MEDS ORDERED: LORAZEPAM INJ 2 MG/1 ML VIAL IV ONE (14:07)
--- NOTE | 2020-02-22 15:01 | EKG REPORT ---
SEVERITY:- NORMAL ECG - SINUS RHYTHM : Confirmed by: Chalo Zee MD 22-Feb-2020 15:00:12
--- NOTE | 2020-02-22 15:43 | PSYCHOLOGICAL NOTE ---
Psych Note - Psych Note Date seen by psych provider: 02/22/20 Time seen by psych provider: 14:50 Psych Note: Reason for Consult: Detox Patient reports he has been drinking nonstop for 3 weeks. He states she has not eaten or drank anything other than beer. He continued to disclosed that he has not drank for about 2 months and normally he will drink for a few days or but not to this extent. He confirms he followed through with the voluntary placement 02/19/2020 at [facility] but states he was told he did not meet criteria so was unable to get treatment. He states he has attempted to detox 3 times but has only been accepted once and that was about 6 months ago. 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 Clinician spoke with [facility]. They confirm the patient presented for intake on 02/19/2020. It is reports that he was not accepted because he had any event of fecal incontinent; "it says he did not even notice he had diarrhea running down his leg... That is a rule out for us, They can't have bowel incontinence" Patient reports he was having an issue with diarrhea; however, denies he is currently having these issues. Patient reports that he had normal bowel movement yesterday. Patient is alert and orientated to person, place, time and circumstance. Mood is dysphoric with flat affect. Patient is currently under the influence with an EtOH of 297. Patient denies suicidal and homicidal ideation. Delusions are absent behaviors congruent with an intact reality based presentation ie organized anemia thought process. Eye contact was fair. Conversational speech within normal rate, tone and prosody. Intellectual abilities appear to be within the average range. Attention and concentration is fair. Insight, judgment, impulse control is fair. Impression\\plan: Patient is cleared from acute psychiatric services. Clinician was able to contact [facility]. They confirm they will triage the patient to determine if he is appropriate with their services. Patient has an intake appointment at 8 PM. Patient is also provided detox referral list of local facilities and mobile crisis contact information. Dr. [place] was consulted in the care management of this patient; tending physicians in agreement with recommendations and disposition.
[2020-02-22] MEDS ORDERED: RINGERS SOLUTION,LACTATED 1,000 ML IV ONE (15:46)
[2020-02-22] MEDS ORDERED: NORMAL SALINE 1000 ML 1,000 ML with POTASSIUM CHLORIDE 20 MEQ, MAGNESIUM SULFATE 8 MEQ,... IV SCH ×5 (18:00)
[2020-02-22] MEDS ORDERED: LORAZEPAM 1 MG TABLET PO ONE (19:19)
--- NOTE | 2020-02-22 19:25 | ER Document Report ---
Entered by DAREN BAEZ SCRIBE 02/22/20 1123 Acting as scribe for:BOGDAN VALDES MD ED General <ADDIE SHANNON - Last Filed: 02/22/20 18:13> - General Mode of Arrival: Medic Information source: Patient TRAVEL OUTSIDE OF THE [place] IN LAST 30 DAYS: No <BOGDAN VALDES - Last Filed: 02/22/20 19:25> - General Chief Complaint: Chest Pain Stated Complaint: CHEST PAIN Time Seen by Provider: 02/22/20 10:22 Primary Care Provider: [facility] [Outside] - Follow up as needed Notes: This 49 year old male patient presents to the emergency department today with c omplaints of chest pain. Patient states he visited the ED several times the last week and was sent to [facility] for alcohol rehab. Patient states he has been drinking and his last drink was beer this morning x2 hours ago. Patient states he has acid reflux, his throat is burning, and has alcohol withdrawal when he stops drinking. Patient states his stool is dark/orange and denies vomiting. Patient states he has been told he has diabetes but is not on medication. Denies history of strokes, heart attacks, and is on medication for his HTN. (BOGDAN VALDES) - Related Data Allergies/Adverse Reactions: No Known Allergies Allergy (Verified 11/28/18 05:59) Past Medical History - General Information source: Patient - Social History Smoking Status: Current Every Day Smoker Cigarette use (# per day): Yes Frequency of alcohol use: Heavy Family History: Reviewed & Not Pertinent, CAD, DM, Hyperlipidemia, Hypertension - Past Medical History Cardiac Medical History: Reports: Hx Hypertension Denies: Hx Heart Attack Neurological Medical History: Denies: Hx Cerebrovascular Accident Musculoskeletal Medical History: Reports Hx Arthritis, Reports Hx Musculoskeletal Trauma Psychiatric Medical History: Reports: Hx Anxiety, Hx Depression Traumatic Medical History: Reports: Hx Fractures Past Surgical History: Reports: Hx Orthopedic Surgery - right knee - Immunizations Hx Diphtheria, Pertussis, Tetanus Vaccination: Yes <BOGDAN VALDES - Last Filed: 02/22/20 19:25> Review of Systems - Review of Systems Constitutional: No symptoms reported EENT: See HPI, Throat pain Cardiovascular: No symptoms reported Respiratory: No symptoms reported Gastrointestinal: See HPI, Other - Dark/orange stool. denies: Vomiting Genitourinary: No symptoms reported Male Genitourinary: No symptoms reported Musculoskeletal: No symptoms reported Skin: No symptoms reported Hematologic/Lymphatic: No symptoms reported Neurological/Psychological: See HPI -: Yes All other systems reviewed and negative <BOGDAN VALDES - Last Filed: 02/22/20 19:25> Physical Exam - General General appearance: Appears well, Alert - HEENT Head: Normocephalic, Atraumatic Eyes: Normal Extraocular movements intact: Yes Pupils: PERRL - Respiratory Respiratory status: No respiratory distress Breath sounds: Normal - Cardiovascular Rhythm: Regular Heart sounds: Normal auscultation Murmur: No - Abdominal Inspection: Normal, Other - Soft Distension: No distension Bowel sounds: Normal Tenderness: Nontender - Extremities General upper extremity: Normal inspection. No: Edema General lower extremity: Normal inspection. No: Edema - Neurological Neuro grossly intact: Yes Cognition: Normal Orientation: AAOx4 Speech: Normal - Psychological Associated symptoms: Normal affect, Normal mood - Skin Skin Temperature: Warm Skin Moisture: Dry Skin Color: Normal <BOGDAN VALDES - Last Filed: 02/22/20 19:25> - Vital signs Vitals: Temp 98.0 F 02/22/20 10:16 - Respiratory Notes: Reproducible anterior chest wall pain with palpation. (BOGDAN VALDES) Course - Laboratory Result Diagrams: 02/22/20 09:50 02/22/20 09:50 <ADDIE SHANNON - Last Filed: 02/22/20 18:13> - Laboratory Result Diagrams: 02/22/20 09:50 02/22/20 09:50 - Diagnostic Test Radiology reviewed: Reports reviewed <BOGDAN VALDES - Last Filed: 02/22/20 19:25> - Re-evaluation Re-evalutation: 02/22/20 15:37 Patient resting comfortably not showing any signs of distress at this time. 02/22/20 19:24 Patient is medically cleared to be discharged from the emergency department to go directly over to the [facility] on campus. (BOGDAN VALDES) - Vital Signs Vital signs: Temp Pulse Resp BP Pulse Ox 98.7 F 19 132/75 H 98 02/22/20 18:00 02/22/20 18:01 02/22/20 18:00 02/22/20 18:01 02/22/20 15:37 Vital signs are stable. 02/22/20 19:20 Vital signs stable (BOGDAN VALDES) - Laboratory Laboratory results interpreted by me: 02/22/20 02/22/20 02/22/20 09:50 09:50 11:12 RDW 15.5 H Plt Count 127 L Sodium 129.8 L Chloride 92 L Carbon Dioxide 21 L Glucose 413 H* POC Glucose Lactic Acid 2.7 H AST 184 H ALT 90 H Lipase 627.3 H Urine Glucose (UA) Urine Blood 02/22/20 02/22/20 02/22/20 11:17 11:28 14:15 RDW Plt Count Sodium Chloride Carbon Dioxide Glucose POC Glucose 340 H 202 H Lactic Acid AST ALT Lipase Urine Glucose (UA) >=500 H Urine Blood SMALL H 02/22/20 02/22/20 02/22/20 16:05 16:55 18:16 RDW Plt Count Sodium Chloride Carbon Dioxide Glucose POC Glucose 127 H Lactic Acid 2.7 H AST ALT Lipase 514.7 H Urine Glucose (UA) Urine Blood 02/22/20 15:37 Laboratory shows an elevated glucose which is now down to 202 just with fluid hydration. Patient is not a known diabetic however with patient drinking alcohol a raises his blood sugar. Patient is not on no medications for diabetes mellitus. Patient with elevated lipase of 627. Likely due to drinking alcohol. Denies any abdominal pain at this time. 02/22/20 15:43 Troponin x2 within normal limits. 02/22/20 19:20 Patient's blood sugar is down to 127. (BOGDAN VALDES) - Diagnostic Test Radiology results interpreted by me: 02/22/20 15:42 Chest x-ray shows no acute process. (BOGDAN VALDES) - EKG Interpretation by Me Additional EKG results interpreted by me: 02/22/20 15:42 Twelve-lead EKG shows normal sinus rhythm, rate 72, no acute ST-T wave changes. (BOGDAN VALDES) Discharge <ADDIE SHANNON - Last Filed: 02/22/20 18:13> <BOGDAN VALDES - Last Filed: 02/22/20 19:25> - Discharge Clinical Impression: Acute alcoholic intoxication in alcoholism, Alcohol abuse, Chest wall pain Condition: Good Disposition: PSYCH HOSP/UNIT Instructions: Chest Wall Pain ([facility]) Additional Instructions: You have been evaluated both medical and behavioral health teams have been deemed appropriate for discharge. The behavioral health team was able to secure an intake appointment for you at 8 PM at [facility]. Please contact them if you will be late. You have also been provided a local resource list of alternate detox facilities and mobile crisis contact information. You are recommended to continue working with your outpatient mental health provider [facility] after detox. ACUTE ALCOHOL INTOXICATION and ALCOHOL ABUSE: Your evaluation revealed very high levels of alcohol. You can from drinking a large amount of alcohol rapidly! Further, there's the risk of falls, traffic accidents, and fights. A high portion (about 50 percent) of the serious injuries seen in hospital emergency rooms are caused by alcohol. Alcohol overdosage is usually due to an underlying emotional or psychiatric problem. You may benefit from counselling. If "binge" drinking is an ongoing problem for you, or if you drink ANY AMOUNT of alcohol EVERY day, you most likely have a tendency to alcoholism. You should avoid alcohol totally. We can refer you for treatment. Persons with alcohol problems are often also prone to other addictions -- you should discuss any use of medications or drugs with the doctor. You should be watched at home for the next several hours by someone who has not been drinking. Get extra fluids for the next 24 hours. Call the doctor if there is repeated vomiting, increasing headache, decreasing level of alertness, or any other worsening. CHRONIC ALCOHOLISM and ALCOHOL ABUSE: Your evaluation reveals evidence of chronic alcoholism, an addiction to alcohol. The tendency to alcoholism may be inherited. Chronic use of alcohol weakens muscles, causes fatty deposits in the liver, damages the stomach, makes you more prone to infections, and can cause defects in unborn children. In the long run, brain atrophy and cirrhosis of the liver result. You are also at greater risk for certain types of cancer, such as cancer of the mouth, throat, stomach, and liver. Counselling services are available to help you. In-hospital treatment programs often help. Support groups such as Alcoholics Anonymous can be very useful in beating this addiction. Your physician can make a referral for you. As alcoholics often are prone to other addictions, you should discuss your use of any other medications with the doctor. ALCOHOL WITHDRAWAL: Your symptoms are caused by alcohol withdrawal. After a period of frequent drinking, the brain and body are changed by the alcohol. When you quit or reduce your drinking, the nervous system becomes unstable. Withdrawal symptoms can start a few hours after your last drink, but sometimes don't begin until a couple of days later. Symptoms can include shakiness, sweating, insomnia, nausea, vomiting, fearfulness, hallucinations, and seizures. In addition to the acute effects of alcohol withdrawal, we often have to deal with the medical effects of alcoholism. These problems often include dehydration, stomach irritation, intestinal bleeding, low blood sugar, liver disease, and pancreas inflammation. Treatment for alcohol withdrawal includes mild sedatives, vitamins, and fluids. You need to be with someone who can help if symptoms become severe. Many patients can withdraw at home. Admission to the hospital or a detox facility may be necessary if withdrawal symptoms are severe and uncontrollable. Abstaining from alcohol is the only effective long-term treatment. If you start drinking again, you will not be able to control yourself after the first drink. Treatment programs are available. In addition, many alcoholics benefit from Alcoholics Anonymous or other support groups available through your [facility] nselor or hoahaoism rake operator. AL-ANON and ALA-TEEN are support groups for friends and family members of an alcoholic. Go to the emergency room if you develop persistent vomiting, severe abdominal pain, fever, shortness of breath, hallucinations, uncontrollable tremors, or seizures. FOLLOW-UP CARE: If you have been referred to a physician for follow-up care, call the [facility] office for an appointment as you were instructed or within the next two days. If you experience worsening or a significant change in your symptoms, notify the physician immediately or return to the Emergency Department at any time for re-evaluation. Referrals: [facility] [Outside] - Follow up as needed I personally performed the services described in the documentation, reviewed and edited the documentation which was dictated to the scribe in my presence, and it accurately records my words and actions.
[2020-02-22 19:59] VITALS: BP 151/88
== END 2020-02-22 20:25 ==
LOC: ER 10:16
DX: F10.229 Alcohol dependence with intoxication, unspecified (principal); R07.89 Other chest pain; F17.210 Nicotine dependence, cigarettes, uncomplicated; I10 Essential (primary) hypertension
CPT/HCPCS: 93005; 99285; 96361; 96374; 36415; 82553; 82962; 80307 ×2; 82550; 83605; 83690; 85025; 80053; 81001; 84484; 82803; 71045; 93010; J2060; J7030; J7050; J7120

== ENCOUNTER 2020-03-26 08:36 | Emergency (ER) | payer SELFPAY ==
[2020-03-26 08:53] VITALS: BP 111/72
--- NOTE | 2020-03-26 09:57 | RADIOLOGY REPORT (SQ) ---
EXAM DESCRIPTION: KNEE RIGHT 3 VIEWS IMAGES COMPLETED DATE/TIME: 03/26/2020 9:42 am REASON FOR STUDY: pain COMPARISON: 02/17/2016 NUMBER OF VIEWS: Three views. TECHNIQUE: AP, lateral, and sunrise patella radiographic images acquired of the right knee. LIMITATIONS: None. FINDINGS: MINERALIZATION: Normal. BONES: Status post open reduction, internal fixation of the distal femur and proximal tibia. There i s no evidence of hardware fracture, perihardware lucency or migration. No acute osseous injury. Tri compartmental degenerative changes are demonstrated with significant subcortical lucencies involving the medial compartment and likely central osteophytes involving the medial compartment and patellofem oral compartments. Prominent marginal osteophytes are seen of the medial compartment. Patellar spur ring is demonstrated. JOINT: Small joint effusion. SOFT TISSUES: No soft tissue swelling. No radio-opaque foreign body. OTHER: No other significant finding. IMPRESSION: No evidence of acute osseous injury. Small joint effusion. Status post open reduction, internal fixation of the distal femur and proximal tibia without evidence of hardware complication. Background of tricompartmental degenerative changes most significantly affecting the medial compartm ent. TECHNICAL DOCUMENTATION: JOB ID: [id number] 2010 [employer]- All Rights Reserved Reading location - IP/workstation name: [email or web address]
--- NOTE | 2020-03-26 13:24 | ER Document Report ---
ED Extremity Problem, Lower - General Chief Complaint: Knee Pain Stated Complaint: KNEE PAIN Time Seen by Provider: 03/26/20 13:23 Mode of Arrival: Ambulatory Information source: Patient Notes: 03/26/20 09:09 - ED Nursing Note by WARREN HORN Num: [id number] : 1970 Patient Age: 49 Pt ambulates into ER today for c/o right knee pain that started two weeks ago. Pt states that he had orthopedic surgery on the same knee in 2016. Pt states he was helping his dad lifting heavy objects and after that is when he noticed it started hurting and "felt like it locked up". Pt denies any current injury to the knee. Pt states the knee is swollen and the pain is shooting down the right leg now. Pt states he thought the pain would go away but has increasingly worsened. MY NOTES 49-year-old male arrives by POV after having 1 month history of swollen right knee. He was overusing his right knee cleaning out his father's accumulations and positions 1 month ago when his father from heart attack. Patient reports in 2016 he had his right knee distal fibula repaired. X-rays today reveal a distal femur proximal tibial ORIF and hardware intact. There is patellar edema. Patient does drink old Greenlandic open to 1 month ago when he stopped. His blood sugars were going 300 at that time. His blood sugars now are been running around 130-150. Patient reports his surgery was done here at [facility] many years ago. TRAVEL OUTSIDE OF THE [place] IN LAST 30 DAYS: No - HPI Patient complains to provider of: Pain, Swelling Location: Knee - Related Data Allergies/Adverse Reactions: No Known Allergies Allergy (Verified 11/28/18 05:59) Past Medical History - General Information source: Patient - Social History Smoking Status: Current Every Day Smoker Cigarette use (# per day): Yes Chew tobacco use (# tins/day): No Smoking Education Provided: Yes Frequency of alcohol use: None Drug Abuse: None Lives with: Family Family History: Reviewed & Not Pertinent, CAD, DM, Hyperlipidemia, Hypertension - Past Medical History Cardiac Medical History: Reports: Hx Hypertension Denies: Hx Heart Attack Neurological Medical History: Denies: Hx Cerebrovascular Accident Renal/ Medical History: Denies: Hx Peritoneal Dialysis Musculoskeletal Medical History: Reports Hx Arthritis, Reports Hx Musculoskeletal Trauma Psychiatric Medical History: Reports: Hx Anxiety, Hx Depression Traumatic Medical History: Reports: Hx Fractures Past Surgical History: Reports: Hx Orthopedic Surgery - right knee - Immunizations Hx Diphtheria, Pertussis, Tetanus Vaccination: Yes Review of Systems - Review of Systems Constitutional: No symptoms reported EENT: No symptoms reported Cardiovascular: No symptoms reported Respiratory: No symptoms reported Gastrointestinal: No symptoms reported Genitourinary: No symptoms reported Male Genitourinary: No symptoms reported Musculoskeletal: See HPI, Joint pain, Joint swelling - r knee Skin: No symptoms reported Hematologic/Lymphatic: No symptoms reported Neurological/Psychological: No symptoms reported Physical Exam - Vital signs Vitals: Temp Pulse Resp BP Pulse Ox 98.3 F 83 16 111/72 100 03/26/20 08:50 03/26/20 08:50 03/26/20 08:50 03/26/20 08:50 03/26/20 08:50 Interpretation: Normal - General General appearance: Alert - HEENT Head: Normocephalic Pupils: PERRL Nasal: Normal Mouth/Lips: Normal Mucous membranes: Normal Pharynx: Normal Neck: Normal - Respiratory Respiratory status: No respiratory distress Chest status: Nontender Breath sounds: Normal Chest palpation: Normal - Cardiovascular Rhythm: Regular Heart sounds: Normal auscultation Murmur: No - Abdominal Inspection: Normal Distension: No distension Bowel sounds: Normal Tenderness: Nontender Organomegaly: No organomegaly - Rectal Prostate: Other - deferred - Genitourinary Scrotum: Other - deferred - Back Back: Normal - Extremities General upper extremity: Normal inspection General lower extremity: Other - right knee with edema patella balottement..tender to p/p right thigh - Neurological Neuro grossly intact: Yes Cognition: Normal Orientation: AAOx4 [place] Coma Scale Eye Opening: Spontaneous [place] Coma Scale Verbal: Oriented [place] Coma Scale Motor: Obeys Commands [place] Coma Scale Total: 15 Speech: Normal Motor strength normal: LUE, RUE, LLE Sensory: Normal - Psychological Associated symptoms: Normal affect - Skin Skin Temperature: Warm Skin Moisture: Dry Course - Vital Signs Vital signs: Temp Pulse Resp BP Pulse Ox 98.3 F 83 16 111/72 100 03/26/20 08:50 03/26/20 08:50 03/26/20 08:50 03/26/20 08:50 03/26/20 08:50 - Laboratory Laboratory results interpreted by me: 03/26/20 14:09 POC Glucose 134 H Discharge - Discharge Clinical Impression: acute knee swelling Knee pain, chronic Qualifiers: Laterality: right Qualified Code(s): M25.561 - Pain in right knee; G89.29 - Other chronic pain Effusion of patella Qualifiers: Laterality: right Qualified Code(s): M25.461 - Effusion, right knee Disposition: HOME, SELF-CARE Additional Instructions: Follow-up with orthopedics Dr. Gutierres return to ER as needed take medicines as directed encourage fluids avoid using right knee. Prescriptions: Etodolac [Lodine] 400 mg PO BID #14 tablet Forms: Return to Work
--- NOTE | 2020-03-26 15:45 | RADIOLOGY REPORT (SQ) ---
EXAM DESCRIPTION: VENOUS UNILATERAL LOWER IMAGES COMPLETED DATE/TIME: 03/26/2020 3:37 pm REASON FOR STUDY: right thigh knee pain COMPARISON: None. TECHNIQUE: Dynamic and static mcmanus scale and color images acquired of the right leg venous system. S elected spectral images acquired with additional compression and augmentation maneuvers. The contrala teral common femoral vein and saphenofemoral junction were also imaged. Images stored on PACS. LIMITATIONS: None. FINDINGS: COMMON FEMORAL: Normal phasicity, compression and augmentation. No visualized echogenic ma terial on mcmanus scale. No defects on color images. FEMORAL: Normal compression and augmentation. No visualized echogenic material on mcmanus scale. No defe cts on color images. POPLITEAL: Normal compression, augmentation. No visualized echogenic material on mcmanus scale. No defec ts on color images. CALF VESSELS: Normal compression, augmentation. No visualized echogenic material on mcmanus scale. No de fects on color images. GSV and SSV: Normal compression, augmentation. No visualized echogenic material on mcmanus scale. No def ects on color images. ANY DEEP VENOUS INSUFFICIENCY: Not evaluated. ANY EVIDENCE OF POPLITEAL CYST: No. OTHER: No other significant finding. CONTRALATERAL COMMON FEMORAL VEIN: Normal phasicity, compression and augmentation. No visualized echogenic material on mcmanus scale. No de fects on color images. IMPRESSION: 1. NO EVIDENCE OF DVT OR SVT IN THE RIGHT LEG. COMMENT: 1. The results were given to the patient's provider on 03/26/2020 15:05 hours. TECHNICAL DOCUMENTATION: JOB ID: [id number] 2010 [employer]- All Rights Reserved Reading location - IP/workstation name: [email or web address]
== END 2020-03-26 15:20 | disposition home or self-care (01) ==
LOC: ER 08:36
DX: M25.561 Pain in right knee (principal); G89.29 Other chronic pain; M25.461 Effusion, right knee; Z98.890 Other specified postprocedural states; F17.210 Nicotine dependence, cigarettes, uncomplicated; I10 Essential (primary) hypertension
CPT/HCPCS: 82962; 93971; 99285

== ENCOUNTER 2020-05-26 09:28 | Emergency (ER) | payer SELFPAY ==
--- NOTE | 2020-05-26 10:16 | ER Document Report ---
Doctor's Note Notes: 05/26/20 10:15 Left without being seen
--- OUTSIDE RECORDS SUMMARY | 2020-05-27 18:28 | XMS REPORT ---
:1970 [facility] [address] [place] [address] Care Team Providers Name Role Phone [facility] Primary Care Physician Unavailable Allergies, Adverse Reactions, Alerts This patient has no known allergies or adverse reactions. Medications Ordered Filled Start Stop Current Ordering Indication Dosage Frequency Signature Comments Components Medication Medication Date Date Medication? Clinician (SIG) Name Name Ambien 10 2019-0 Yes 10MG take 1/2 MG Oral 9-18 half tab TABLET 00:00: PO HS 00 busPIRone 2020-0 Yes 15MG take one HCl 15 MG 9-18 PO Three Oral TABLET 00:00: times a 00 day Paxil 20 MG 2020-0 Yes 20MG take one Oral TABLET 9-18 and half 00:00: tab PO 00 daily Paxil 20 MG 2020-0 Yes 20MG TAKE ONE Oral TABLET 5-22 AND HALF 00:00: TAB PO 00 DAILY busPIRone 2020-0 Yes 15MG ONE TAB HCl 15 MG 5-22 Three Oral TABLET 00:00: times a 00 day Ambien 10 2019-0 Yes 10MG 1/2 QHS MG Oral 1-03 TABLET 00:00: 00 busPIRone 2020-0 Yes 10MG ONE TAB HCl 10 MG 1-03 Three Oral TABLET 00:00: times a 00 day Paxil 20 MG 2020-0 Yes 20MG TAKE ONE Oral TABLET 1-03 AND HALF 00:00: TAB PO 00 DAILY Ambien 10 2018- No 10MG 1 HS MG Oral 1-25 TABLET 00:00: 00 cloNIDine 2018- No .1MG Take 1 HCl 0.1 MG 0-21 tablet at Oral TABLET 00:00: bedtime 00 Paxil 20 MG 2018- No 20MG TAKE ONE Oral TABLET 0-21 AND HALF 00:00: TAB PO 00 DAILY busPIRone 2018-07 No 10MG ONE TAB HCl 10 MG 0-21 Three Oral TABLET 00:00: times a 00 day Paxil 20 MG 2019-0 No 20MG TAKE ONE Oral TABLET 8-06 AND HALF 00:00: TAB PO 00 DAILY busPIRone 2019-0 No 10MG ONE TAB HCl 10 MG 8-06 Three Oral TABLET 00:00: times a 00 day BusPIRone 2018-0 No 10MG ONE TAB HCl 10 MG 2-12 Three Oral TABLET 00:00: times a 00 day Paxil 20 MG 2018- No 20MG TAKE ONE Oral TABLET 2-12 AND HALF 00:00: TAB PO 00 DAILY BusPIRone 2017-07 No 10MG ONE TAB HCl 10 MG 2-12 Three Oral TABLET 00:00: times a 00 day Paxil 20 MG 2017-07 No 20MG TAKE ONE Oral TABLET 2-12 AND HALF 00:00: TAB PO 00 DAILY Problems Condition Condition Condition Status Onset Resolution Last Treatin g Comments Name Details Category Date Date Treatment Clinician Date Panic Concern Active 2019-07 disorder 0-16 without 00:00: agoraphobia 00 Panic Concern Inactive 2020-0 disorder 9-18 without 00:00: agoraphobia 00 Panic Concern Inactive 2019- disorder 6-22 without 00:00: agoraphobia 00 Panic Concern Inactive 2020-0 disorder 5-22 without 00:00: agoraphobia 00 Seasonal Seasonal [id number] Active 2019-10-[address] allergic allergic 4-16 15:18:33 Asses smen rhinitis rhinitis 00:00: t & Pl an: due to due to 00 Symptoms pollen pollen highly suggesti v e of seasonal allergie s and allergic rhinitis . Referral made to [facility] for further evaluati o n for return t o work. Not on file Not on [id number] file Procedures This patient has no known procedures. Results Test Description Test Time Test Comments Text Results Atomic Results Result Comments Amphetamine 2019-06-09 22:10:00 Test Item Value Reference Range Comments Amphetamine (test code = 42195-6) Not Detected Jjobxeqebd9871-57-84 22:10:00 Test Item Value Reference Range Comments Gabapentin (test code = 9738-6) Not Detected Fqdtlnda7039-74-64 22:10:00 Test Item Value Reference Range Comments Fentanyl (test code = 32928-2) Not Detected Myxgklnk2573-25-44 22:10:00 Test Item Value Reference Range Comments Tramadol (test code = 16540-2) Not Detected 0-Vmyewzuxkjuvrvk1304-16Oijpbziglmttxfp4832-09-75 22:10:00 Test Item Value Reference Range Comments 7-Aminoclonazepam (test code = 40363-9) Not Detected Sgfowaptzex0402-39-37 22:10:00 Test Item Value Reference Range Comments Nordiazepam (test code = 96575-2) Not Detected Imjixnxk9918-26-31 22:10:00 Test Item Value Reference Range Comments Oxazepam (test code = 68122-3) Not Detected Nbueefcpvufoo3615-10-90 22:10:00 Test Item Value Reference Range Comments Buprenorphine (test code = 3414-0) Not Detected Ethyl Ypffzxwbjks8597-04-80 22:10:00 Test Item Value Reference Range Comments Ethyl Glucuronide (test code = 07650-8) Not Detected Jqvmvlbvg8774-31-79 22:10:00 Test Item Value Reference Range Comments Methadone (test code = 3773-9) Not Detected Mercgds6106-40-15 22:10:00 Test Item Value Reference Range Comments Codeine (test code = 59109-8) Not Detected uZ4787-02-11 22:10:00 Test Item Value Reference Range Comments pH (test code = 68945-6) 4.7 U/L Uzufvfvxgxf7404-44-63 22:10:00 Test Item Value Reference Range Comments Hydrocodone (test code = 82495-3) Not Detected Gmftebnmaykcp8043-64-45 22:10:00 Test Item Value Reference Range Comments Hydromorphone (test code = 9834-3) Not Detected Ksjwzwepk8372-24-45 22:10:00 Test Item Value Reference Range Comments Oxycodone (test code = 54102-1) Not Detected Ouazsgmcttw4857-79-00 22:10:00 Test Item Value Reference Range Comments Oxymorphone (test code = 87272-4) Not Detected Accpqaupyyjma3653-61-65 22:10:00 Test Item Value Reference Range Comments Phencyclidine (test code = 8234-7) Not Detected Jvkqtvimgtjptfp7860-79-67 22:10:00 Test Item Value Reference Range Comments Benzoylecgonine (test code = 8187-7) Not Detected Wimxmvnchnm5410-86-59 21:39:00 Test Item Value Reference Range Comments Amphetamine (test code = 26957-1) Not Detected Lyxmibbbio7841-96-10 21:39:00 Test Item Value Reference Range Comments Gabapentin (test code = 9738-6) Not Detected Wjxrdnco4555-99-06 21:39:00 Test Item Value Reference Range Comments Fentanyl (test code = 69039-3) Not Detected Yjevwsfk1868-77-24 21:39:00 Test Item Value Reference Range Comments Tramadol (test code = 82357-8) Not Detected 8-Uzxxcslfzxzhfan5632-41Zcxyxtkkoifyjyg1219-10-67 21:39:00 Test Item Value Reference Range Comments 7-Aminoclonazepam (test code = 30644-6) Not Detected Yutkutjcoao4638-79-04 21:39:00 Test Item Value Reference Range Comments Nordiazepam (test code = 29982-0) Not Detected Fogpdqma5361-08-11 21:39:00 Test Item Value Reference Range Comments Oxazepam (test code = 80229-4) Not Detected Jlxzapemfgmjf6283-23-28 21:39:00 Test Item Value Reference Range Comments Buprenorphine (test code = 3414-0) Not Detected Ethyl Qpxkedtivek9001-24-94 21:39:00 Test Item Value Reference Range Comments Ethyl Glucuronide (test code = 63232-2) Not Detected Pmnnmdokv2201-74-59 21:39:00 Test Item Value Reference Range Comments Methadone (test code = 3773-9) Not Detected Cdbtlko5167-77-22 21:39:00 Test Item Value Reference Range Comments Codeine (test code = 99378-9) Not Detected kM3446-77-07 21:39:00 Test Item Value Reference Range Comments pH (test code = 59028-5) 5.6 U/L Tvicsbwdhii5429-09-74 21:39:00 Test Item Value Reference Range Comments Hydrocodone (test code = 45669-4) Not Detected Hatvrissiqsii4324-90-76 21:39:00 Test Item Value Reference Range Comments Hydromorphone (test code = 9834-3) Not Detected Mrlstjana3560-17-42 21:39:00 Test Item Value Reference Range Comments Oxycodone (test code = 56113-6) Not Detected Tjmcwyfvqoa6546-12-93 21:39:00 Test Item Value Reference Range Comments Oxymorphone (test code = 54960-2) Not Detected Ailfwzmxjnvcx3811-68-58 21:39:00 Test Item Value Reference Range Comments Phencyclidine (test code = 8234-7) Not Detected Bjhqbokekgofdlh6907-00-66 21:39:00 Test Item Value Reference Range Comments Benzoylecgonine (test code = 8187-7) Not Detected Rhxslpjjfah5474-95-73 20:48:00 Test Item Value Reference Range Comments Amphetamine (test code = 93293-9) Not Detected Rcotygyxef0196-14-68 20:48:00 Test Item Value Reference Range Comments Gabapentin (test code = 9738-6) Not Detected Dwteigyf6994-53-06 20:48:00 Test Item Value Reference Range Comments Fentanyl (test code = 77369-8) Not Detected Ijcclxio6184-31-08 20:48:00 Test Item Value Reference Range Comments Tramadol (test code = 43192-5) Not Detected 0-Dltknkazanxwgkc1816-53Tdnchjxptezprcq4889-99-28 20:48:00 Test Item Value Reference Range Comments 7-Aminoclonazepam (test code = 08719-8) Not Detected Frclihzieny6692-23-77 20:48:00 Test Item Value Reference Range Comments Nordiazepam (test code = 26942-7) Not Detected Ulaoyyha4009-34-76 20:48:00 Test Item Value Reference Range Comments Oxazepam (test code = 66697-0) Detected Gesfhfrnepnqb4146-02-26 20:48:00 Test Item Value Reference Range Comments Buprenorphine (test code = 3414-0) Not Detected Ethyl Gslbgpatacl0791-59-97 20:48:00 Test Item Value Reference Range Comments Ethyl Glucuronide (test code = 93966-7) Not Detected Vpplqrhda3707-15-15 20:48:00 Test Item Value Reference Range Comments Methadone (test code = 3773-9) Not Detected Eaaxmkf3861-36-91 20:48:00 Test Item Value Reference Range Comments Codeine (test code = 72067-7) Not Detected dW2725-85-53 20:48:00 Test Item Value Reference Range Comments pH (test code = 44626-1) 4.6 U/L Mvhkuctdbzr5142-68-03 20:48:00 Test Item Value Reference Range Comments Hydrocodone (test code = 60200-4) Not Detected Pknniarsauifi2287-81-29 20:48:00 Test Item Value Reference Range Comments Hydromorphone (test code = 9834-3) Not Detected Esmikkcqi2043-98-49 20:48:00 Test Item Value Reference Range Comments Oxycodone (test code = 01658-7) Not Detected Jvbjywbewmz9781-33-67 20:48:00 Test Item Value Reference Range Comments Oxymorphone (test code = 00697-3) Not Detected Umcbrvkfwkvhz5024-12-18 20:48:00 Test Item Value Reference Range Comments Phencyclidine (test code = 8234-7) Not Detected Iamsvbpclunotaa6392-48-27 20:48:00 Test Item Value Reference Range Comments Benzoylecgonine (test code = 8187-7) Not Detected Qchkqkgmausqsof6661-78-21 20:48:00 Test Item Value Reference Range Comments Benzoylecgonine (test code = 8187-7) Not Detected Jsfhsvxlkfr4113-18-78 20:48:00 Test Item Value Reference Range Comments Amphetamine (test code = 01165-2) Not Detected Bakxsujfuc6271-53-45 20:48:00 Test Item Value Reference Range Comments Gabapentin (test code = 9738-6) Not Detected Yqbwdnmr5706-60-16 20:48:00 Test Item Value Reference Range Comments Fentanyl (test code = 18955-8) Not Detected Rauhibew4871-28-50 20:48:00 Test Item Value Reference Range Comments Tramadol (test code = 11833-4) Not Detected 1-Ibhihuwpiclobbt0543-73Paleowcjywowlcj2776-39-84 20:48:00 Test Item Value Reference Range Comments 7-Aminoclonazepam (test code = 70919-9) Not Detected Emuxcrytagy4816-41-75 20:48:00 Test Item Value Reference Range Comments Nordiazepam (test code = 51980-9) Not Detected Mfjccuxt9732-53-55 20:48:00 Test Item Value Reference Range Comments Oxazepam (test code = 10121-3) Not Detected Zsfnwtugsufqm6139-98-94 20:48:00 Test Item Value Reference Range Comments Buprenorphine (test code = 3414-0) Not Detected Ethyl Apegsuasqqz4694-98-63 20:48:00 Test Item Value Reference Range Comments Ethyl Glucuronide (test code = 39236-3) Not Detected Wawgwbecz4541-00-28 20:48:00 Test Item Value Reference Range Comments Methadone (test code = 3773-9) Not Detected Vyvziut5805-25-29 20:48:00 Test Item Value Reference Range Comments Codeine (test code = 79091-9) Not Detected jB4457-17-97 20:48:00 Test Item Value Reference Range Comments pH (test code = 25085-9) 5.5 U/L Dqtwyftzqib3664-00-74 20:48:00 Test Item Value Reference Range Comments Hydrocodone (test code = 83174-8) Not Detected Zjyazwspaeods7405-35-34 20:48:00 Test Item Value Reference Range Comments Hydromorphone (test code = 9834-3) Not Detected Paapkqixy5912-51-97 20:48:00 Test Item Value Reference Range Comments Oxycodone (test code = 99060-9) Not Detected Ujbbaxhxmpi3724-15-35 20:48:00 Test Item Value Reference Range Comments Oxymorphone (test code = 99552-7) Not Detected Mlgcohrfejuyv3127-64-65 20:48:00 Test Item Value Reference Range Comments Phencyclidine (test code = 8234-7) Not Detected Hbttcqjtrqe4968-00-60 21:40:00 Test Item Value Reference Range Comments Amphetamine (test code = 14668-6) Not Detected Qibzvtiksr4083-00-86 21:40:00 Test Item Value Reference Range Comments Gabapentin (test code = 9738-6) Not Detected Bbzcenfs4286-34-17 21:40:00 Test Item Value Reference Range Comments Fentanyl (test code = 20137-1) Not Detected Ffulzchq8365-62-86 21:40:00 Test Item Value Reference Range Comments Tramadol (test code = 15563-8) Not Detected 6-Viyetblohufedwo0041-44Ytibujiydscnadh3304 21:40:00 Test Item Value Reference Range Comments 7-Aminoclonazepam (test code = 89711-3) Not Detected Lrdqyewicgd4081-24-43 21:40:00 Test Item Value Reference Range Comments Nordiazepam (test code = 42905-0) Not Detected Wwnoadfy1377-35-20 21:40:00 Test Item Value Reference Range Comments Oxazepam (test code = 34877-4) Not Detected Msdrkogdxhftk2859-96-48 21:40:00 Test Item Value Reference Range Comments Buprenorphine (test code = 3414-0) Not Detected Ethyl Dtrkbjircth2809-70-68 21:40:00 Test Item Value Reference Range Comments Ethyl Glucuronide (test code = 03651-3) Not Detected Ycfewzuoe5435-12-51 21:40:00 Test Item Value Reference Range Comments Methadone (test code = 3773-9) Not Detected Anhcwvy9930-38-61 21:40:00 Test Item Value Reference Range Comments Codeine (test code = 49522-4) Not Detected mG0709-59-73 21:40:00 Test Item Value Reference Range Comments pH (test code = 77286-4) 5.0 U/L Rynpexuybrh1166-38-99 21:40:00 Test Item Value Reference Range Comments Hydrocodone (test code = 46976-7) Not Detected Nkfgolrogxciw5858-96-59 21:40:00 Test Item Value Reference Range Comments Hydromorphone (test code = 9834-3) Not Detected Jkrvsscsa6418-46-81 21:40:00 Test Item Value Reference Range Comments Oxycodone (test code = 19085-4) Not Detected Txefgqolhza7247-21-13 21:40:00 Test Item Value Reference Range Comments Oxymorphone (test code = 02858-2) Not Detected Xnodpnwnachfh4908-15-39 21:40:00 Test Item Value Reference Range Comments Phencyclidine (test code = 8234-7) Not Detected Pmcszipjogrusvu8455-15-45 21:40:00 Test Item Value Reference Range Comments Benzoylecgonine (test code = 8187-7) Not Detected Ywzhrouirhx6496-37-22 21:07:00 Test Item Value Reference Range Comments Amphetamine (test code = 01778-8) Not Detected Ardgsfzfoo1175-13-67 21:07:00 Test Item Value Reference Range Comments Gabapentin (test code = 9738-6) Not Detected Fsfpnrwa9283-68-66 21:07:00 Test Item Value Reference Range Comments Fentanyl (test code = 49173-0) Not Detected Dbyfidfw1157-65-26 21:07:00 Test Item Value Reference Range Comments Tramadol (test code = 24770-1) Not Detected 8-Mbwcakyifeykdlr2811-21Zujubfvrnzvufyj8606-92-02 21:07:00 Test Item Value Reference Range Comments 7-Aminoclonazepam (test code = 37702-6) Not Detected Cwnjmyectbm3711-67-04 21:07:00 Test Item Value Reference Range Comments Nordiazepam (test code = 16248-4) Not Detected Pcwczecr8890-68-43 21:07:00 Test Item Value Reference Range Comments Oxazepam (test code = 85991-7) Detected Znkpqbtpxcefz9874-68-72 21:07:00 Test Item Value Reference Range Comments Buprenorphine (test code = 3414-0) Not Detected Ethyl Mtcayhncmwl4511-70-32 21:07:00 Test Item Value Reference Range Comments Ethyl Glucuronide (test code = 21160-0) Not Detected Rwqymyefb7374-12-63 21:07:00 Test Item Value Reference Range Comments Methadone (test code = 3773-9) Not Detected Lkvxdvd1079-66-08 21:07:00 Test Item Value Reference Range Comments Codeine (test code = 39041-3) Not Detected eG1532-28-77 21:07:00 Test Item Value Reference Range Comments pH (test code = 96082-0) 4.9 U/L Fwiqpkpyofg7345-03-85 21:07:00 Test Item Value Reference Range Comments Hydrocodone (test code = 29101-4) Not Detected Llgzhapbeaufq2340-50-26 21:07:00 Test Item Value Reference Range Comments Hydromorphone (test code = 9834-3) Not Detected Bgumafmcx0377-86-12 21:07:00 Test Item Value Reference Range Comments Oxycodone (test code = 55123-6) Not Detected Ipfcabiwnxs5786-57-04 21:07:00 Test Item Value Reference Range Comments Oxymorphone (test code = 22236-4) Not Detected Cnzoyjikibuwt5408-31-12 21:07:00 Test Item Value Reference Range Comments Phencyclidine (test code = 8234-7) Not Detected Wkuhzohfgxatxkt8093-05-36 21:07:00 Test Item Value Reference Range Comments Benzoylecgonine (test code = 8187-7) Not Detected Mlyrxvcgvfr1976-88-61 20:34:00 Test Item Value Reference Range Comments Amphetamine (test code = 10280-7) Not Detected Onlotdhxay4650-35-38 20:34:00 Test Item Value Reference Range Comments Gabapentin (test code = 9738-6) Not Detected Pxhdljju6622-03-05 20:34:00 Test Item Value Reference Range Comments Fentanyl (test code = 60641-9) Not Detected Dnomrvhn3552-33-68 20:34:00 Test Item Value Reference Range Comments Tramadol (test code = 79078-4) Not Detected 8-Mpqnsitdlxcvfol8872-13Uautddmfclwlkdy7898-54-39 20:34:00 Test Item Value Reference Range Comments 7-Aminoclonazepam (test code = 04368-4) Not Detected Eirndvpkwws8857-64-01 20:34:00 Test Item Value Reference Range Comments Nordiazepam (test code = 56789-1) Not Detected Zudmrjwe4336-85-30 20:34:00 Test Item Value Reference Range Comments Oxazepam (test code = 86350-8) Not Detected Mxqrryapqsedi5092-48-76 20:34:00 Test Item Value Reference Range Comments Buprenorphine (test code = 3414-0) Not Detected Ethyl Ayqntliamiw3911-00-76 20:34:00 Test Item Value Reference Range Comments Ethyl Glucuronide (test code = 94949-6) Not Detected Kywhhegba0493-89-48 20:34:00 Test Item Value Reference Range Comments Methadone (test code = 3773-9) Not Detected Lynvapw0911-27-82 20:34:00 Test Item Value Reference Range Comments Codeine (test code = 38439-0) Not Detected Eeogxtvi9673-67-34 20:34:00 Test Item Value Reference Range Comments Morphine (test code = 77372-5) Not Detected Yceigtxvubs8600-22-29 20:34:00 Test Item Value Reference Range Comments Hydrocodone (test code = 56447-1) Not Detected Qldmhtzttwehq5237-72-70 20:34:00 Test Item Value Reference Range Comments Hydromorphone (test code = 9834-3) Not Detected Bajmzavea8037-02-68 20:34:00 Test Item Value Reference Range Comments Oxycodone (test code = 02605-6) Not Detected Ycuhyakgwbq8803-37-87 20:34:00 Test Item Value Reference Range Comments Oxymorphone (test code = 10301-3) Not Detected Kxgbolklxahap9228-04-02 20:34:00 Test Item Value Reference Range Comments Phencyclidine (test code = 8234-7) Not Detected Zqdxxcekfyuopee7134-92-98 20:34:00 Test Item Value Reference Range Comments Benzoylecgonine (test code = 8187-7) Not Detected Pmqwcgpyqet3487-63-97 14:54:00 Test Item Value Reference Range Comments Amphetamine (test code = 89575-3) Not Detected Vfjxhzrbpx3940-84-13 14:54:00 Test Item Value Reference Range Comments Gabapentin (test code = 9738-6) Not Detected Tkqvmsik2519-31-74 14:54:00 Test Item Value Reference Range Comments Fentanyl (test code = 11887-8) Not Detected Jffjggtb8168-17-26 14:54:00 Test Item Value Reference Range Comments Tramadol (test code = 82961-8) Not Detected 0-Pjbsmuqbozgxauq4493-99Ivvsdpqjhvrabcy0800-57-97 14:54:00 Test Item Value Reference Range Comments 7-Aminoclonazepam (test code = 87143-7) Not Detected Ymagqdnruop5906-30-54 14:54:00 Test Item Value Reference Range Comments Nordiazepam (test code = 39830-6) Not Detected Whwalrng9814-08-94 14:54:00 Test Item Value Reference Range Comments Oxazepam (test code = 19689-3) Detected Abfjkqrwxqzzh8530-30-30 14:54:00 Test Item Value Reference Range Comments Buprenorphine (test code = 3414-0) Not Detected Ethyl Iyhnqfmacze9217-21-86 14:54:00 Test Item Value Reference Range Comments Ethyl Glucuronide (test code = 53136-1) Not Detected Zmqetfqjx0017-49-07 14:54:00 Test Item Value Reference Range Comments Methadone (test code = 3773-9) Not Detected Vgkqjrk7309-60-38 14:54:00 Test Item Value Reference Range Comments Codeine (test code = 40195-6) Not Detected Uvakghla7936-98-43 14:54:00 Test Item Value Reference Range Comments Morphine (test code = 78073-0) Not Detected Crnfemgdekk2858-15-04 14:54:00 Test Item Value Reference Range Comments Hydrocodone (test code = 86379-2) Not Detected Qxgxbralinsvu5137-71-73 14:54:00 Test Item Value Reference Range Comments Hydromorphone (test code = 9834-3) Not Detected Kilqwhgvn9835-87-72 14:54:00 Test Item Value Reference Range Comments Oxycodone (test code = 74421-5) Not Detected Acpcvuchyvs5985-51-65 14:54:00 Test Item Value Reference Range Comments Oxymorphone (test code = 71168-5) Not Detected Bdauikirqlghj5508-74-51 14:54:00 Test Item Value Reference Range Comments Phencyclidine (test code = 8234-7) Not Detected Xietmarhqhwjjpb3549-67-73 14:54:00 Test Item Value Reference Range Comments Benzoylecgonine (test code = 8187-7) Not Detected Mqgaisqlphm5280-50-29 16:38:00 Test Item Value Reference Range Comments Amphetamine (test code = 51720-5) Not Detected Oieqbcysiv9483-81-12 16:38:00 Test Item Value Reference Range Comments Gabapentin (test code = 9738-6) Not Detected Zfjwuelz9098-26-83 16:38:00 Test Item Value Reference Range Comments Fentanyl (test code = 66013-5) Not Detected Nyutpvsp0303-15-32 16:38:00 Test Item Value Reference Range Comments Tramadol (test code = 32177-9) Not Detected 5-Tujnwkyeuernkzn1801-71Wrulftpdzdsbaqc6292-87-64 16:38:00 Test Item Value Reference Range Comments 7-Aminoclonazepam (test code = 91529-1) Not Detected Vzjtsbhkcgj0592-71-16 16:38:00 Test Item Value Reference Range Comments Nordiazepam (test code = 65366-4) Not Detected Fodfbzih2151-13-04 16:38:00 Test Item Value Reference Range Comments Oxazepam (test code = 16121-0) Detected Gwlliqdnxyuwm6969-02-99 16:38:00 Test Item Value Reference Range Comments Buprenorphine (test code = 3414-0) Not Detected Ethyl Fiyxeqsukkt5757-31-17 16:38:00 Test Item Value Reference Range Comments Ethyl Glucuronide (test code = 83687-0) Not Detected Aksgxhczl8613-04-30 16:38:00 Test Item Value Reference Range Comments Methadone (test code = 3773-9) Not Detected Tgyexea0346-19-93 16:38:00 Test Item Value Reference Range Comments Codeine (test code = 70323-6) Not Detected Huvmvmqw2094-53-07 16:38:00 Test Item Value Reference Range Comments Morphine (test code = 12900-0) Not Detected Eetqprfnpbs9059-00-25 16:38:00 Test Item Value Reference Range Comments Hydrocodone (test code = 63022-2) Not Detected Gpqgbkhhtmfpo7344-53-11 16:38:00 Test Item Value Reference Range Comments Hydromorphone (test code = 9834-3) Not Detected Tblbmfmqb9571-95-05 16:38:00 Test Item Value Reference Range Comments Oxycodone (test code = 86191-4) Not Detected Rcaitbhzxjy4954-35-50 16:38:00 Test Item Value Reference Range Comments Oxymorphone (test code = 87297-6) Not Detected Qvmijapzylzin3166-02-75 16:38:00 Test Item Value Reference Range Comments Phencyclidine (test code = 8234-7) Not Detected Hbrifqyrdvxxave0511-31-93 16:38:00 Test Item Value Reference Range Comments Benzoylecgonine (test code = 8187-7) Not Detected Fbowjiguydj0903-93-90 16:36:00 Test Item Value Reference Range Comments Amphetamine (test code = 41680-0) Not Detected Tjwwpmpvxz2998-63-11 16:36:00 Test Item Value Reference Range Comments Gabapentin (test code = 9738-6) Not Detected Ktrprsbq3387-84-18 16:36:00 Test Item Value Reference Range Comments Fentanyl (test code = 06497-9) Not Detected Ufhgybnq3844-41-79 16:36:00 Test Item Value Reference Range Comments Tramadol (test code = 29920-0) Not Detected 0-Ktpqndzkhijthnn9132-34Xzwjvqdtideeauf7096-11-69 16:36:00 Test Item Value Reference Range Comments 7-Aminoclonazepam (test code = 66860-3) Not Detected Cabcgzhnrtl5579-31-48 16:36:00 Test Item Value Reference Range Comments Nordiazepam (test code = 62738-7) Not Detected Ebjihsyk5903-67-83 16:36:00 Test Item Value Reference Range Comments Oxazepam (test code = 39059-7) Detected Txtboxakybmok8636-08-84 16:36:00 Test Item Value Reference Range Comments Buprenorphine (test code = 3414-0) Not Detected Ethyl Thmrmrlhqkv8786-61-24 16:36:00 Test Item Value Reference Range Comments Ethyl Glucuronide (test code = 15354-7) Not Detected Vfdmbsczn3042-01-62 16:36:00 Test Item Value Reference Range Comments Methadone (test code = 3773-9) Not Detected Ogfuoqb0159-71-99 16:36:00 Test Item Value Reference Range Comments Codeine (test code = 73098-7) Not Detected Gcuhytvj0297-04-70 16:36:00 Test Item Value Reference Range Comments Morphine (test code = 96450-9) Not Detected Aadbteivoiv0249-37-08 16:36:00 Test Item Value Reference Range Comments Hydrocodone (test code = 55691-9) Not Detected Xvzfgtnfnlixj6798-38-21 16:36:00 Test Item Value Reference Range Comments Hydromorphone (test code = 9834-3) Not Detected Npsqpxmyy5241-47-34 16:36:00 Test Item Value Reference Range Comments Oxycodone (test code = 76636-7) Not Detected Sulwpuptcek0508-38-02 16:36:00 Test Item Value Reference Range Comments Oxymorphone (test code = 72197-2) Not Detected Vbjamximkfljt2189-40-20 16:36:00 Test Item Value Reference Range Comments Phencyclidine (test code = 8234-7) Not Detected Cnitiqapbfswhvs7304-59-82 16:36:00 Test Item Value Reference Range Comments Benzoylecgonine (test code = 8187-7) Not Detected Mloduqhvcbl4956-72-48 16:43:00 Test Item Value Reference Range Comments Amphetamine (test code = 95108-0) Not Detected Kimobjtfno9444-45-84 16:43:00 Test Item Value Reference Range Comments Gabapentin (test code = 9738-6) Not Detected Inhhoooh3359-01-92 16:43:00 Test Item Value Reference Range Comments Fentanyl (test code = 98109-0) Not Detected Jhokieac5827-47-99 16:43:00 Test Item Value Reference Range Comments Tramadol (test code = 83287-8) Not Detected 8-Gvaxmcnzudgfprg6195-97Bfhdxsfaziffmse8089-95-67 16:43:00 Test Item Value Reference Range Comments 7-Aminoclonazepam (test code = 65894-8) Not Detected Vehldavgzwn2902-76-86 16:43:00 Test Item Value Reference Range Comments Nordiazepam (test code = 01269-8) Not Detected Ggkcoahq9421-02-31 16:43:00 Test Item Value Reference Range Comments Oxazepam (test code = 54999-5) Detected Bidkonzpbalat0566-60-97 16:43:00 Test Item Value Reference Range Comments Buprenorphine (test code = 3414-0) Not Detected Ethyl Hxvbuiially5796-53-84 16:43:00 Test Item Value Reference Range Comments Ethyl Glucuronide (test code = 59316-6) Not Detected Almlpmhdx3947-05-88 16:43:00 Test Item Value Reference Range Comments Methadone (test code = 3773-9) Not Detected Etxqugi5119-31-83 16:43:00 Test Item Value Reference Range Comments Codeine (test code = 64778-2) Not Detected Njcluvwr1311-53-67 16:43:00 Test Item Value Reference Range Comments Morphine (test code = 93540-3) Not Detected Ngwlxkfbhzi4406-33-89 16:43:00 Test Item Value Reference Range Comments Hydrocodone (test code = 34071-7) Not Detected Paulibxxkjgnz3721-83-32 16:43:00 Test Item Value Reference Range Comments Hydromorphone (test code = 9834-3) Not Detected Bknznetpd0182-18-21 16:43:00 Test Item Value Reference Range Comments Oxycodone (test code = 06531-4) Not Detected Wlbbbxhqdkt1839-44-09 16:43:00 Test Item Value Reference Range Comments Oxymorphone (test code = 97678-3) Not Detected Otxmxqvfbsuvt3962-09-64 16:43:00 Test Item Value Reference Range Comments Phencyclidine (test code = 8234-7) Not Detected Kcdksdwajofrqfn2974-31-10 16:43:00 Test Item Value Reference Range Comments Benzoylecgonine (test code = 8187-7) Not Detected Htiijtzucri2196-56-53 16:34:00 Test Item Value Reference Range Comments Amphetamine (test code = 72495-2) Not Detected Ywuzfsqymp8325-39-12 16:34:00 Test Item Value Reference Range Comments Gabapentin (test code = 9738-6) Not Detected Murxdgbf3243-82-56 16:34:00 Test Item Value Reference Range Comments Fentanyl (test code = 09132-1) Not Detected Viiiojhd4242-17-43 16:34:00 Test Item Value Reference Range Comments Tramadol (test code = 38246-6) Not Detected 2-Pbmqkxfbzqaohjk1523-45Jnplrghlowvasbi2014-78-72 16:34:00 Test Item Value Reference Range Comments 7-Aminoclonazepam (test code = 88831-8) Not Detected Pzmtwmlplxk7389-74-91 16:34:00 Test Item Value Reference Range Comments Nordiazepam (test code = 76002-2) Not Detected Smnxvdri7762-06-57 16:34:00 Test Item Value Reference Range Comments Oxazepam (test code = 79963-1) Detected Hcgyikjlmxgqy1035-61-85 16:34:00 Test Item Value Reference Range Comments Buprenorphine (test code = 3414-0) Not Detected Ethyl Cddkdwctvsy8376-36-40 16:34:00 Test Item Value Reference Range Comments Ethyl Glucuronide (test code = 57668-9) Not Detected Rrkgbggcj5254-94-69 16:34:00 Test Item Value Reference Range Comments Methadone (test code = 3773-9) Not Detected Rcuuywx5425-54-91 16:34:00 Test Item Value Reference Range Comments Codeine (test code = 40001-5) Not Detected Dremnbxw6927-30-54 16:34:00 Test Item Value Reference Range Comments Morphine (test code = 76839-6) Not Detected Hhrfonfmzvg3847-34-50 16:34:00 Test Item Value Reference Range Comments Hydrocodone (test code = 58706-5) Not Detected Kewvyjcxfvfpz1091-02-73 16:34:00 Test Item Value Reference Range Comments Hydromorphone (test code = 9834-3) Not Detected Qtqsagfsb8789-45-04 16:34:00 Test Item Value Reference Range Comments Oxycodone (test code = 84197-2) Not Detected Ryfxwfriyid5728-66-41 16:34:00 Test Item Value Reference Range Comments Oxymorphone (test code = 94505-4) Not Detected Zjbvrpynapndh7970-53-97 16:34:00 Test Item Value Reference Range Comments Phencyclidine (test code = 8234-7) Not Detected Qohynuzglzjhxad3285-37-07 16:34:00 Test Item Value Reference Range Comments Benzoylecgonine (test code = 8187-7) Not Detected Ocmuaeethva3422-59-44 16:47:00 Test Item Value Reference Range Comments Amphetamine (test code = 85143-3) Not Detected Omltuautjn0617-18-49 16:47:00 Test Item Value Reference Range Comments Gabapentin (test code = 9738-6) Not Detected Ucbnftkk9909-27-18 16:47:00 Test Item Value Reference Range Comments Fentanyl (test code = 57384-9) Not Detected Emffbsgy0327-26-25 16:47:00 Test Item Value Reference Range Comments Tramadol (test code = 14869-3) Not Detected 4-Qxpstjmstvgagyg9888-32Zkndiqooittndwu9341-97-06 16:47:00 Test Item Value Reference Range Comments 7-Aminoclonazepam (test code = 86412-8) Not Detected Jhrvcrrdsnd3917-17-46 16:47:00 Test Item Value Reference Range Comments Nordiazepam (test code = 90477-8) Not Detected Ifwlgfyg5527-80-38 16:47:00 Test Item Value Reference Range Comments Oxazepam (test code = 30236-4) Detected Hfztnvvrnktlm8586-56-96 16:47:00 Test Item Value Reference Range Comments Buprenorphine (test code = 3414-0) Not Detected Ethyl Pmusxmbdcbp2985-53-56 16:47:00 Test Item Value Reference Range Comments Ethyl Glucuronide (test code = 04460-3) Not Detected Uhkzjugne2048-60-02 16:47:00 Test Item Value Reference Range Comments Methadone (test code = 3773-9) Not Detected Phbdkoj9491-99-64 16:47:00 Test Item Value Reference Range Comments Codeine (test code = 25108-0) Not Detected Gpglocxy8913-61-69 16:47:00 Test Item Value Reference Range Comments Morphine (test code = 08068-3) Not Detected Ylplohrdpah4833-70-98 16:47:00 Test Item Value Reference Range Comments Hydrocodone (test code = 08118-4) Not Detected Zefsyyykyivuo6428-53-33 16:47:00 Test Item Value Reference Range Comments Hydromorphone (test code = 9834-3) Not Detected Rtbnoxpsr1854-79-95 16:47:00 Test Item Value Reference Range Comments Oxycodone (test code = 64759-4) Not Detected Ceppwymykuz1888-25-37 16:47:00 Test Item Value Reference Range Comments Oxymorphone (test code = 31823-1) Not Detected Osgoifkvcmylv7159-05-13 16:47:00 Test Item Value Reference Range Comments Phencyclidine (test code = 8234-7) Not Detected Koscuzsuzrypaas8956-79-48 16:47:00 Test Item Value Reference Range Comments Benzoylecgonine (test code = 8187-7) Not Detected Kzplkodrena3761-07-07 16:22:00 Test Item Value Reference Range Comments Amphetamine (test code = 67506-6) Not Detected Iwxkckxrdn2501-22-41 16:22:00 Test Item Value Reference Range Comments Gabapentin (test code = 9738-6) Not Detected Jphawhye5374-82-43 16:22:00 Test Item Value Reference Range Comments Fentanyl (test code = 11336-1) Not Detected Gznkfrsw4269-50-23 16:22:00 Test Item Value Reference Range Comments Tramadol (test code = 99967-9) Not Detected 8-Yextewhthnuoskw8766-19Wxdnpxhdnyqsaso5329-48-13 16:22:00 Test Item Value Reference Range Comments 7-Aminoclonazepam (test code = 12934-8) Not Detected Zkbgscebnrb9653-06-58 16:22:00 Test Item Value Reference Range Comments Nordiazepam (test code = 46878-4) Not Detected Argejvlf6158-79-15 16:22:00 Test Item Value Reference Range Comments Oxazepam (test code = 69853-3) Detected Hjilbyqkogghe7384-42-08 16:22:00 Test Item Value Reference Range Comments Buprenorphine (test code = 3414-0) Not Detected Ethyl Wfoynpsvikm3714-93-40 16:22:00 Test Item Value Reference Range Comments Ethyl Glucuronide (test code = 33773-8) Not Detected Dvriavghi3920-93-03 16:22:00 Test Item Value Reference Range Comments Methadone (test code = 3773-9) Not Detected Okigznu5728-30-45 16:22:00 Test Item Value Reference Range Comments Codeine (test code = 00642-7) Not Detected Tpuffvtj4708-22-91 16:22:00 Test Item Value Reference Range Comments Morphine (test code = 66341-3) Not Detected Vxsaqtmiida0381-41-20 16:22:00 Test Item Value Reference Range Comments Hydrocodone (test code = 76788-0) Not Detected Ueyddfwqepqkj4353-72-47 16:22:00 Test Item Value Reference Range Comments Hydromorphone (test code = 9834-3) Not Detected Sfyauppwh8809-52-64 16:22:00 Test Item Value Reference Range Comments Oxycodone (test code = 18114-8) Not Detected Hzlazyldohr9882-06-57 16:22:00 Test Item Value Reference Range Comments Oxymorphone (test code = 05080-3) Not Detected Jhiucdzpzmooo7999-67-22 16:22:00 Test Item Value Reference Range Comments Phencyclidine (test code = 8234-7) Not Detected Ofaimpzxcbjwcry3130-16-38 16:22:00 Test Item Value Reference Range Comments Benzoylecgonine (test code = 8187-7) Not Detected Egysglgdtxv1858-13-46 21:10:00 Test Item Value Reference Range Comments Amphetamine (test code = 25778-9) Not Detected Eiyetfnrml1710-79-44 21:10:00 Test Item Value Reference Range Comments Gabapentin (test code = 9738-6) Not Detected Tqihiklf9244-89-71 21:10:00 Test Item Value Reference Range Comments Fentanyl (test code = 98733-6) Not Detected Slacqxpt3500-71-21 21:10:00 Test Item Value Reference Range Comments Tramadol (test code = 06920-4) Not Detected 9-Ojnrvlnjstkxvvf0618-61Dnfzhmpwvhfkiqb8810-60-18 21:10:00 Test Item Value Reference Range Comments 7-Aminoclonazepam (test code = 87361-2) Not Detected Schquzwxqfn7262-80-72 21:10:00 Test Item Value Reference Range Comments Nordiazepam (test code = 85762-7) Not Detected Tjdhyxfu3432-99-51 21:10:00 Test Item Value Reference Range Comments Oxazepam (test code = 31485-3) 321 ng/mL Kbgekdqbxjeqi0119-35-47 21:10:00 Test Item Value Reference Range Comments Buprenorphine (test code = 3414-0) Not Detected Ethyl Lduyazjtatk9789-52-85 21:10:00 Test Item Value Reference Range Comments Ethyl Glucuronide (test code = 00535-6) Not Detected Dwaffvpmv7511-28-62 21:10:00 Test Item Value Reference Range Comments Methadone (test code = 3773-9) Not Detected Mukwfbg2484-38-64 21:10:00 Test Item Value Reference Range Comments Codeine (test code = 72886-1) Not Detected Npevoqqf4756-00-30 21:10:00 Test Item Value Reference Range Comments Morphine (test code = 87687-2) Not Detected Enhzeshtvlv7913-94-77 21:10:00 Test Item Value Reference Range Comments Hydrocodone (test code = 28871-0) Not Detected Bokqurmzslhys9489-47-57 21:10:00 Test Item Value Reference Range Comments Hydromorphone (test code = 9834-3) Not Detected Qbygyytnc7825-67-18 21:10:00 Test Item Value Reference Range Comments Oxycodone (test code = 61253-3) Not Detected Thcavjsilvi8979-33-13 21:10:00 Test Item Value Reference Range Comments Oxymorphone (test code = 06462-9) Not Detected Vnhublxtqnsel6935-82-37 21:10:00 Test Item Value Reference Range Comments Phencyclidine (test code = 8234-7) Not Detected Tifpfdbhhnajbsf3422-64-12 21:10:00 Test Item Value Reference Range Comments Benzoylecgonine (test code = 8187-7) Not Detected Ckimsblluue8636-18-18 22:15:00 Test Item Value Reference Range Comments Amphetamine (test code = 81504-1) Not Detected Aaioczarob1524-75-82 22:15:00 Test Item Value Reference Range Comments Gabapentin (test code = 9738-6) Not Detected Mkktgfcz2074-87-85 22:15:00 Test Item Value Reference Range Comments Fentanyl (test code = 45323-2) Not Detected Vaiqrzli2301-30-26 22:15:00 Test Item Value Reference Range Comments Tramadol (test code = 45683-6) Not Detected 6-Qygegjjufuxwsri4266-21Tcehyggkjepdgsj9499-36-70 22:15:00 Test Item Value Reference Range Comments 7-Aminoclonazepam (test code = 73759-7) Not Detected Fanqpoohxcq2677-31-12 22:15:00 Test Item Value Reference Range Comments Nordiazepam (test code = 97516-0) Not Detected Deodleam1018-42-24 22:15:00 Test Item Value Reference Range Comments Oxazepam (test code = 88297-0) 165 ng/mL Nifzfwfxwumgw9582-61-44 22:15:00 Test Item Value Reference Range Comments Buprenorphine (test code = 3414-0) Not Detected Ethyl Ygiouoyitbe8873-80-21 22:15:00 Test Item Value Reference Range Comments Ethyl Glucuronide (test code = 14070-0) Not Detected Qwcwpylha3477-82-31 22:15:00 Test Item Value Reference Range Comments Methadone (test code = 3773-9) Not Detected Zlprmsy1934-01-73 22:15:00 Test Item Value Reference Range Comments Codeine (test code = 78869-9) Not Detected Uenvtxwf9831-64-71 22:15:00 Test Item Value Reference Range Comments Morphine (test code = 36168-4) Not Detected Snhfmjsfqwr5644-66-89 22:15:00 Test Item Value Reference Range Comments Hydrocodone (test code = 23126-3) Not Detected Wjfoluwdevzgq8349-35-72 22:15:00 Test Item Value Reference Range Comments Hydromorphone (test code = 9834-3) Not Detected Gnssicnvv1943-34-52 22:15:00 Test Item Value Reference Range Comments Oxycodone (test code = 47576-8) Not Detected Pdixvkbvqfx8580-57-56 22:15:00 Test Item Value Reference Range Comments Oxymorphone (test code = 56951-0) Not Detected Hfkbyafudhvon7027-18-22 22:15:00 Test Item Value Reference Range Comments Phencyclidine (test code = 8234-7) Not Detected Hvtfnhozawyurxs0796-00-98 22:15:00 Test Item Value Reference Range Comments Benzoylecgonine (test code = 8187-7) Not Detected Sirtusuaiil7269-75-00 21:39:00 Test Item Value Reference Range Comments Amphetamine (test code = 99030-9) Not Detected Gorpagmvcd1068-28-74 21:39:00 Test Item Value Reference Range Comments Gabapentin (test code = 9738-6) Not Detected Wkkmrrap2351-36-85 21:39:00 Test Item Value Reference Range Comments Fentanyl (test code = 96555-5) Not Detected Sxzsvjsy7497-15-10 21:39:00 Test Item Value Reference Range Comments Tramadol (test code = 73416-6) Not Detected 0-Etynshvdrzzvdsf5658-24Zxkhbgjgxrjerop2134-07-57 21:39:00 Test Item Value Reference Range Comments 7-Aminoclonazepam (test code = 42967-9) Not Detected Tncmjlqrddw6106-78-95 21:39:00 Test Item Value Reference Range Comments Nordiazepam (test code = 94828-1) Not Detected Lwbvzmii7224-69-15 21:39:00 Test Item Value Reference Range Comments Oxazepam (test code = 20274-5) 276 ng/mL Gggxfqemhhrxa7317-13-09 21:39:00 Test Item Value Reference Range Comments Buprenorphine (test code = 3414-0) Not Detected Ethyl Bqogwhqrisn6310-85-81 21:39:00 Test Item Value Reference Range Comments Ethyl Glucuronide (test code = 29129-5) Not Detected Jmddfzykk9103-77-13 21:39:00 Test Item Value Reference Range Comments Methadone (test code = 3773-9) Not Detected Xnopsik5026-05-58 21:39:00 Test Item Value Reference Range Comments Codeine (test code = 52446-3) Not Detected Aowsyfco6606-76-73 21:39:00 Test Item Value Reference Range Comments Morphine (test code = 49772-4) Not Detected Irglmiqlhky0438-90-67 21:39:00 Test Item Value Reference Range Comments Hydrocodone (test code = 37149-2) Not Detected Ylnxdpuqwtqvc3656-13-32 21:39:00 Test Item Value Reference Range Comments Hydromorphone (test code = 9834-3) Not Detected Fehcyrmxd1760-49-69 21:39:00 Test Item Value Reference Range Comments Oxycodone (test code = 55323-8) Not Detected Micjzqbcafj8862-97-04 21:39:00 Test Item Value Reference Range Comments Oxymorphone (test code = 48062-6) Not Detected Eyszyiiqnzvau9488-66-23 21:39:00 Test Item Value Reference Range Comments Phencyclidine (test code = 8234-7) Not Detected Tlhqcvtwjykndtj2364-38-65 21:39:00 Test Item Value Reference Range Comments Benzoylecgonine (test code = 8187-7) Not Detected Idhdarnrshy6401-61-57 20:48:00 Test Item Value Reference Range Comments Nordiazepam (test code = 65497-3) Not Detected Smcarylv6580-47-85 20:48:00 Test Item Value Reference Range Comments Oxazepam (test code = 44955-5) 379 ng/mL Rvwabopsjtxhj5224-11-80 20:48:00 Test Item Value Reference Range Comments Buprenorphine (test code = 3414-0) Not Detected Ethyl Lknnqucekwf2377-22-20 20:48:00 Test Item Value Reference Range Comments Ethyl Glucuronide (test code = 30434-5) Not Detected Jmfpbibrs7079-24-79 20:48:00 Test Item Value Reference Range Comments Methadone (test code = 3773-9) Not Detected Fpluiuc9177-66-90 20:48:00 Test Item Value Reference Range Comments Codeine (test code = 42320-1) Not Detected Utngxwxp2802-69-59 20:48:00 Test Item Value Reference Range Comments Morphine (test code = 14099-3) Not Detected Blbsxyihnqp3332-98-54 20:48:00 Test Item Value Reference Range Comments Hydrocodone (test code = 39167-1) Not Detected Gcrdhhlruadns6368-06-31 20:48:00 Test Item Value Reference Range Comments Hydromorphone (test code = 9834-3) Not Detected Ikqhhehgo2313-53-05 20:48:00 Test Item Value Reference Range Comments Oxycodone (test code = 29495-3) Not Detected Ukvaymnggkv8560-39-91 20:48:00 Test Item Value Reference Range Comments Oxymorphone (test code = 10439-1) Not Detected Chsjeerrfvurc9077-10-25 20:48:00 Test Item Value Reference Range Comments Phencyclidine (test code = 8234-7) Not Detected Mklaxigmugwgrdu1014-60-12 20:48:00 Test Item Value Reference Range Comments Benzoylecgonine (test code = 8187-7) Not Detected Bytgtzsubjg1733-58-92 20:48:00 Test Item Value Reference Range Comments Amphetamine (test code = 31742-9) Not Detected Vuojosrcfh7747-83-90 20:48:00 Test Item Value Reference Range Comments Gabapentin (test code = 9738-6) Not Detected Igmwhqkn3367-82-46 20:48:00 Test Item Value Reference Range Comments Fentanyl (test code = 43690-0) Not Detected Xmdcvzwf9700-55-27 20:48:00 Test Item Value Reference Range Comments Tramadol (test code = 18408-5) Not Detected 9-Libxoxjhlyituao0999-18Gnrasikdgtpeohx0733-50-90 20:48:00 Test Item Value Reference Range Comments 7-Aminoclonazepam (test code = 83232-5) Not Detected Kjcndhhx6562-76-73 21:09:00 Test Item Value Reference Range Comments Oxazepam (test code = 72367-7) 753 ng/mL Nncydfkdzqxdi3888-76-22 21:09:00 Test Item Value Reference Range Comments Buprenorphine (test code = 3414-0) Not Detected Ethyl Ulcuhjkjwct8225-66-72 21:09:00 Test Item Value Reference Range Comments Ethyl Glucuronide (test code = 58178-0) Not Detected Fprnajepd5881-44-43 21:09:00 Test Item Value Reference Range Comments Methadone (test code = 3773-9) Not Detected Bxokpdm1392-71-06 21:09:00 Test Item Value Reference Range Comments Codeine (test code = 73641-5) Not Detected Yjkoskaz1486-75-79 21:09:00 Test Item Value Reference Range Comments Morphine (test code = 68830-1) Not Detected Nisjhoajhyc0071-64-88 21:09:00 Test Item Value Reference Range Comments Hydrocodone (test code = 32490-2) Not Detected Rtbtjmyxgegrq7463-69-91 21:09:00 Test Item Value Reference Range Comments Hydromorphone (test code = 9834-3) Not Detected Mqxfdxrnd3165-59-94 21:09:00 Test Item Value Reference Range Comments Oxycodone (test code = 15233-1) Not Detected Fkiglskuksf3893-12-18 21:09:00 Test Item Value Reference Range Comments Oxymorphone (test code = 77806-9) Not Detected Cgpheixfqdnte0658-28-01 21:09:00 Test Item Value Reference Range Comments Phencyclidine (test code = 8234-7) Not Detected Iwtsarihjdstsyx4388-47-50 21:09:00 Test Item Value Reference Range Comments Benzoylecgonine (test code = 8187-7) Not Detected Hckrzgvoura9200-32-60 21:09:00 Test Item Value Reference Range Comments Amphetamine (test code = 21583-5) Not Detected Zzukouvrvh0817-80-08 21:09:00 Test Item Value Reference Range Comments Gabapentin (test code = 9738-6) Not Detected Dmivqede3790-71-01 21:09:00 Test Item Value Reference Range Comments Fentanyl (test code = 79854-8) Not Detected Qgmythfq2013-86-69 21:09:00 Test Item Value Reference Range Comments Tramadol (test code = 19105-1) Not Detected 2-Tvkxvuszkucvfza3027-99Yzmbdyltktdlzxg4790-14-01 21:09:00 Test Item Value Reference Range Comments 7-Aminoclonazepam (test code = 48344-5) Not Detected Ezveoputata0769-32-35 21:09:00 Test Item Value Reference Range Comments Nordiazepam (test code = 84089-5) Not Detected Qzjijxdlrnl3537-05-69 20:18:00 Test Item Value Reference Range Comments Amphetamine (test code = 04671-8) Not Detected Nojywybfju0773-03-38 20:18:00 Test Item Value Reference Range Comments Gabapentin (test code = 9738-6) Not Detected Whldboaj7490-86-38 20:18:00 Test Item Value Reference Range Comments Fentanyl (test code = 53009-0) Not Detected Irojpwah3441-01-89 20:18:00 Test Item Value Reference Range Comments Tramadol (test code = 60137-5) Not Detected 0-Fhfczveiuemgwqk3274-70Vvzdblibzzqcvas7851-05-20 20:18:00 Test Item Value Reference Range Comments 7-Aminoclonazepam (test code = 77017-3) Not Detected Pvldswwnhrw4468-12-01 20:18:00 Test Item Value Reference Range Comments Nordiazepam (test code = 19264-1) Not Detected Rkplqwdu2651-71-78 20:18:00 Test Item Value Reference Range Comments Oxazepam (test code = 48121-2) 847 ng/mL Cepruimzjbwsa0758-34-48 20:18:00 Test Item Value Reference Range Comments Buprenorphine (test code = 3414-0) Not Detected Ethyl Kbojwvkvaqw6388-94-01 20:18:00 Test Item Value Reference Range Comments Ethyl Glucuronide (test code = 48770-8) Not Detected Dqzyompzu6395-66-48 20:18:00 Test Item Value Reference Range Comments Methadone (test code = 3773-9) Not Detected Wxfojgm0832-39-23 20:18:00 Test Item Value Reference Range Comments Codeine (test code = 12538-1) Not Detected Lfaanxed8903-72-78 20:18:00 Test Item Value Reference Range Comments Morphine (test code = 25155-1) Not Detected Kropljbgxth7957-28-26 20:18:00 Test Item Value Reference Range Comments Hydrocodone (test code = 89147-6) Not Detected Rgkjayytxgjjg7683-50-79 20:18:00 Test Item Value Reference Range Comments Hydromorphone (test code = 9834-3) Not Detected Sxiwxihsx9185-77-92 20:18:00 Test Item Value Reference Range Comments Oxycodone (test code = 02997-9) Not Detected Jertjibmchc6361-43-91 20:18:00 Test Item Value Reference Range Comments Oxymorphone (test code = 03628-8) Not Detected Csaigvevyqdrk2766-07-37 20:18:00 Test Item Value Reference Range Comments Phencyclidine (test code = 8234-7) Not Detected Mhfcymwhbtbtnts5943-19-06 20:18:00 Test Item Value Reference Range Comments Benzoylecgonine (test code = 8187-7) Not Detected Rmzfcvzowxi9061-95-55 20:58:00 Test Item Value Reference Range Comments Amphetamine (test code = 66382-0) Not Detected Rfuhigtjwk6131-22-38 20:58:00 Test Item Value Reference Range Comments Gabapentin (test code = 9738-6) Not Detected Fgidylwg3381-85-85 20:58:00 Test Item Value Reference Range Comments Fentanyl (test code = 81942-9) Not Detected Frjbvnzk5127-55-50 20:58:00 Test Item Value Reference Range Comments Tramadol (test code = 17208-7) Not Detected 4-Pgbyiikycfernev5819-51Irgcdiwhiragzko6220-50-07 20:58:00 Test Item Value Reference Range Comments 7-Aminoclonazepam (test code = 52953-3) Not Detected Nvmwwhpghei0916-66-91 20:58:00 Test Item Value Reference Range Comments Nordiazepam (test code = 13047-7) Not Detected Jsazjnxq8096-27-20 20:58:00 Test Item Value Reference Range Comments Oxazepam (test code = 55664-7) 666 ng/mL Ypsmynnbtciow2167-72-85 20:58:00 Test Item Value Reference Range Comments Buprenorphine (test code = 3414-0) Not Detected Ethyl Ildfipwjeae8968-16-83 20:58:00 Test Item Value Reference Range Comments Ethyl Glucuronide (test code = 47693-3) Not Detected Ojtypqofz5151-61-11 20:58:00 Test Item Value Reference Range Comments Methadone (test code = 3773-9) Not Detected Ycmhrmp7159-98-37 20:58:00 Test Item Value Reference Range Comments Codeine (test code = 37551-7) Not Detected Kwjdshgc7990-09-47 20:58:00 Test Item Value Reference Range Comments Morphine (test code = 61958-3) Not Detected Vrytaljswif7408-18-52 20:58:00 Test Item Value Reference Range Comments Hydrocodone (test code = 20795-5) Not Detected Lvxulpgmtaghr0082-43-18 20:58:00 Test Item Value Reference Range Comments Hydromorphone (test code = 9834-3) Not Detected Razjebycm6570-47-35 20:58:00 Test Item Value Reference Range Comments Oxycodone (test code = 32422-9) Not Detected Ppkdvadfyeo2880-01-82 20:58:00 Test Item Value Reference Range Comments Oxymorphone (test code = 75896-8) Not Detected Ywmasvqxbixum0900-70-45 20:58:00 Test Item Value Reference Range Comments Phencyclidine (test code = 8234-7) Not Detected Lyjfvwfaucpdgir4008-72-41 20:58:00 Test Item Value Reference Range Comments Benzoylecgonine (test code = 8187-7) Not Detected Abubhuzyhtc4858-55-58 21:19:00 Test Item Value Reference Range Comments Amphetamine (test code = 28938-0) Not Detected Fedukaymlb7680-83-38 21:19:00 Test Item Value Reference Range Comments Gabapentin (test code = 9738-6) Not Detected Ppthgwjk6114-79-58 21:19:00 Test Item Value Reference Range Comments Fentanyl (test code = 10544-0) Not Detected Rdppvrnm6241-78-55 21:19:00 Test Item Value Reference Range Comments Tramadol (test code = 52714-6) Not Detected 8-Rjqxztniestlevo0542-21Awgioctpczgbyqk6280-95-90 21:19:00 Test Item Value Reference Range Comments 7-Aminoclonazepam (test code = 47568-7) Not Detected Nwglxzayhku4644-15-56 21:19:00 Test Item Value Reference Range Comments Nordiazepam (test code = 86138-8) Not Detected Lguryoju8213-98-73 21:19:00 Test Item Value Reference Range Comments Oxazepam (test code = 88342-3) 502 ng/mL Jkyasyupbokay2696-69-44 21:19:00 Test Item Value Reference Range Comments Buprenorphine (test code = 3414-0) Not Detected Ethyl Lwdyxuevyby5485-63-57 21:19:00 Test Item Value Reference Range Comments Ethyl Glucuronide (test code = 55196-0) Not Detected Nyxbehvjg9975-21-42 21:19:00 Test Item Value Reference Range Comments Methadone (test code = 3773-9) Not Detected Bzgckjm4893-35-69 21:19:00 Test Item Value Reference Range Comments Codeine (test code = 87589-2) Not Detected Nnqadiim7354-14-38 21:19:00 Test Item Value Reference Range Comments Morphine (test code = 53968-6) Not Detected Nlpkphzhoox9327-26-83 21:19:00 Test Item Value Reference Range Comments Hydrocodone (test code = 02002-8) Not Detected Rrlskhcwpjsby8267-65-08 21:19:00 Test Item Value Reference Range Comments Hydromorphone (test code = 9834-3) Not Detected Seywxafsb3684-80-68 21:19:00 Test Item Value Reference Range Comments Oxycodone (test code = 85990-8) Not Detected Jfbnqguhtuv5836-36-64 21:19:00 Test Item Value Reference Range Comments Oxymorphone (test code = 47020-4) Not Detected Bprfudmldocvk2407-34-55 21:19:00 Test Item Value Reference Range Comments Phencyclidine (test code = 8234-7) Not Detected Aufaclvqyzdecxp7033-08-03 21:19:00 Test Item Value Reference Range Comments Benzoylecgonine (test code = 8187-7) Not Detected Kloctxairtgjs3922-88-59 11:39:00 Test Item Value Reference Range Comments Phencyclidine (test code = 8234-7) Not Detected Wlkcgxhhtdvvjgo9414-02-63 11:39:00 Test Item Value Reference Range Comments Benzoylecgonine (test code = 8187-7) Not Detected Hzapsfstynl7198-69-55 11:39:00 Test Item Value Reference Range Comments Amphetamine (test code = 14803-8) Not Detected Xonguoruwj5827-53-59 11:39:00 Test Item Value Reference Range Comments Gabapentin (test code = 9738-6) Not Detected Gwfylsuh6900-28-59 11:39:00 Test Item Value Reference Range Comments Fentanyl (test code = 16404-8) Not Detected Uwpttcfm3808-55-93 11:39:00 Test Item Value Reference Range Comments Tramadol (test code = 08157-4) Not Detected 9-Zbesfzzpvsoyvfe4034-38Booyfteuforftvy3545-47-04 11:39:00 Test Item Value Reference Range Comments 7-Aminoclonazepam (test code = 07679-9) Not Detected Ifzgxhkmmtz8502-06-95 11:39:00 Test Item Value Reference Range Comments Nordiazepam (test code = 14265-2) Not Detected Ajvgbopc6901-19-81 11:39:00 Test Item Value Reference Range Comments Oxazepam (test code = 28651-5) 424 ng/mL Zrezeqtvcopbz5736-64-38 11:39:00 Test Item Value Reference Range Comments Buprenorphine (test code = 3414-0) Not Detected Ethyl Zvkxtqaokjb8277-64-70 11:39:00 Test Item Value Reference Range Comments Ethyl Glucuronide (test code = 75833-2) Not Detected Vatyahsjl5342-21-93 11:39:00 Test Item Value Reference Range Comments Methadone (test code = 3773-9) Not Detected Mhsquah0435-15-90 11:39:00 Test Item Value Reference Range Comments Codeine (test code = 55251-4) Not Detected Yjulzpgr9130-05-77 11:39:00 Test Item Value Reference Range Comments Morphine (test code = 66828-9) Not Detected Lxwvykddqeg1896-24-67 11:39:00 Test Item Value Reference Range Comments Hydrocodone (test code = 10763-2) Not Detected Aqlthkkgioatd2500-20-50 11:39:00 Test Item Value Reference Range Comments Hydromorphone (test code = 9834-3) Not Detected Ugfpdswwb7710-23-55 11:39:00 Test Item Value Reference Range Comments Oxycodone (test code = 93412-1) Not Detected Nnzdovdhomq8659-17-11 11:39:00 Test Item Value Reference Range Comments Oxymorphone (test code = 02484-8) Not Detected Yjzijychkr7750-07-05 11:39:00 Test Item Value Reference Range Comments Meperidine (test code = 3746-5) Not Detected Vvpoigbjhpyvd3639-72-02 22:14:00 Test Item Value Reference Range Comments Phencyclidine (test code = 8234-7) Not Detected Nzfcgyvfjjqclbe1966-32-75 22:14:00 Test Item Value Reference Range Comments Benzoylecgonine (test code = 8187-7) Not Detected Obvmmevqinq9222-77-96 22:14:00 Test Item Value Reference Range Comments Amphetamine (test code = 49760-7) Not Detected Nvdnvuzlum3581-76-00 22:14:00 Test Item Value Reference Range Comments Gabapentin (test code = 9738-6) Not Detected Urundkgf7453-74-71 22:14:00 Test Item Value Reference Range Comments Fentanyl (test code = 66806-5) Not Detected Gjesrgpi1272-61-24 22:14:00 Test Item Value Reference Range Comments Tramadol (test code = 96707-3) Not Detected 7-Mnvmzliqngrgsah6199-12Cmwwqsaltjxmupe7139-47-11 22:14:00 Test Item Value Reference Range Comments 7-Aminoclonazepam (test code = 93356-6) Not Detected Gqvmbokhdkv8954-42-85 22:14:00 Test Item Value Reference Range Comments Nordiazepam (test code = 66218-6) Not Detected Yihoqgpm0594-36-68 22:14:00 Test Item Value Reference Range Comments Oxazepam (test code = 00645-7) 602 ng/mL Qeahqjxqhytzn1888-87-18 22:14:00 Test Item Value Reference Range Comments Buprenorphine (test code = 3414-0) Not Detected Ethyl Jlfuqjoyafd1425-65-35 22:14:00 Test Item Value Reference Range Comments Ethyl Glucuronide (test code = 51859-1) 4744 ng/mL Ovidmwner8512-29-35 22:14:00 Test Item Value Reference Range Comments Methadone (test code = 3773-9) Not Detected Nvlssdh2640-24-76 22:14:00 Test Item Value Reference Range Comments Codeine (test code = 66997-4) Not Detected Friaxydu0883-10-49 22:14:00 Test Item Value Reference Range Comments Morphine (test code = 67640-3) Not Detected Heknmomgorn3277-90-50 22:14:00 Test Item Value Reference Range Comments Hydrocodone (test code = 17637-6) Not Detected Fekoxpjxlsolx6707-07-32 22:14:00 Test Item Value Reference Range Comments Hydromorphone (test code = 9834-3) Not Detected Cdpowbyxj6587-65-41 22:14:00 Test Item Value Reference Range Comments Oxycodone (test code = 36629-4) Not Detected Rvffjjkdfou3112-59-36 22:14:00 Test Item Value Reference Range Comments Oxymorphone (test code = 25964-3) Not Detected Crmvorsrzx5689-28-85 22:14:00 Test Item Value Reference Range Comments Meperidine (test code = 3746-5) Not Detected Encounters Start End Encounter Admission Attending Care Care Encounter ID Date/Time Date/Time Type Type Clinicians Facility Department 2020-04-30 2020-04-30 Eval & [facility] 1dc [id number] 09:00:00 09:20:00 visit for Health Services 4-7h62-x5s3 - estab pt Services [id number] expanded 2020-04-02 2020-04-02 Eval & [facility] [id number] 09:40:00 10:00:00 visit for Health Services 3-416a-b7a5 - estab pt Services [id number] detailed 2020-01-05 2020-01-05 Psychotherap [facility] e [id number] 10:06:00 10:38:00 y 30 Health Services 1-0873-bm45- Services [id number] 2019-12-05 2019-12-05 Eval & [facility] 8b7 [id number] 11:00:00 11:20:00 visit for Health Services 8-413d-8b55 - estab pt Services [id number] detailed 2019-12-05 2019-12-05 Psychiatric [facility] 2c [id number] 00:00:00 00:00:00 Diagnostic Health Services 2-7x4v-6ub 2- Evaluation Services [id number] 2019-10-30 2019-10-30 Outpatient [facility] [id number] 16:17:22 16:18:03 [id number] 2019-10-30 2019-10-30 [facility] [id number] 14:00:00 14:20:00 2019-10-30 2019-10-30 Outpatient [facility] [id number] 00:00:00 00:00:00 [id number] 2019-10-30 2019-10-30 [facility] [id number] 00:00:00 00:00:00 2019-10-30 2019-10-30 Outpatient [facility] [id number] 00:00:00 00:00:00 Plan of Treatment Planned Activity Planned Date Details Comments Future Scheduled Test [code = ] Future Scheduled Test [code = ] Future Scheduled Test [code = ] Future Scheduled Test [code = ] Social History This patient has no known social history. Vital Signs Vital Name Observation Time Observation Value Comments Height 2020-04-30 09:00:00 71 [in_i] Height 2020-04-02 09:40:00 71 [in_i]
== END 2020-05-26 10:43 | disposition left against medical advice (07) ==
LOC: ER 09:28
DX: Z53.21 Procedure and treatment not carried out due to patient leaving prior to being seen by health care provider (principal)

== ENCOUNTER 2020-05-28 00:05 | Emergency (ER) | payer SELFPAY ==
[2020-05-28 01:34] LABS: ABSOLUTE EOSINOPHILS # (AUTO) 0.1 10^3/uL (0.0-0.6); ABSOLUTE LYMPHOCYTES (AUTO) 2.2 10^3/uL (0.5-4.7); ABSOLUTE MONOCYTES (AUTO) 0.7 10^3/uL (0.1-1.4); ABSOLUTE NEUT (AUTO) 4.6 10^3/uL (1.7-8.2); BASOPHILS % (AUTO) 0.4 % (0-2); EOSINOPHILS % (AUTO) 0.8 % (0-6); HEMATOCRIT 46.8 % (37.9-51.0); HEMOGLOBIN 16.3 g/dL (13.5-17.0); LYMPHOCYTES % (AUTO) 29.2 % (13-45); MEAN CORPUSCULAR HEMOGLOBIN 30.1 pg (27.0-33.4); MEAN CORPUSCULAR HGB CONC 34.9 g/dL (32.0-36.0); MEAN CORPUSCULAR VOLUME 86 fl (80-97); MONOCYTES % (AUTO) 9.2 % (3-13); PLATELET COUNT 140 10^3/uL (150-450); RED BLOOD COUNT 5.42 10^6/uL (4.35-5.55); RED CELL DISTRIBUTION WIDTH 13.9 % (11.5-14.0); SEGMENTED NEUTROPHILS % (AUTO) 60.4 % (42-78); TOTAL CELLS COUNTED % (AUTO) 100 %; WHITE BLOOD COUNT 7.6 10^3/uL (4.0-10.5)
[2020-05-28 02:34] LABS: ALBUMIN 4.9 g/dL (3.5-5.0); ALCOHOL 280 mg/dL (NONE DETECTED); ALKALINE PHOSPHATASE 156 U/L (38-126); ASPARTATE AMINO TRANSFERASE 70 U/L (17-59); BILIRUBIN,DIRECT 0.3 mg/dL (0.0-0.4); BILIRUBIN,TOTAL 0.7 mg/dL (0.2-1.3); BLOOD UREA NITROGEN 7 mg/dL (7-20); CALCIUM 9.4 mg/dL (8.4-10.2); CARBON DIOXIDE 23 mmol/L (22-30); CHLORIDE 90 mmol/L (98-107); GLUCOSE 293 mg/dL (75-110); POTASSIUM 3.7 mmol/L (3.6-5.0); TOTAL PROTEIN 8.1 g/dL (6.3-8.2)
[2020-05-28 02:35] LABS: ACETAMINOPHEN < 10 ug/mL (10-30); ANION GAP 24 (5-19); SALICYLATE < 1.0 mg/dL (2.0-20.0)
--- NOTE | 2020-05-28 03:52 | ER Document Report ---
ED General - General Chief Complaint: Depression Stated Complaint: DEPRESSION/ETOH ADDICTION Time Seen by Provider: 05/28/20 00:36 TRAVEL OUTSIDE OF THE [place] IN LAST 30 DAYS: No - HPI Notes: Patient is a 49-year-old male presents the emergency department for evaluation. He states he needs alcohol detox. He states that he has been drinking heavily over the last several weeks. He was detoxed at [facility] in February, states he did well for a few weeks. He states that several things made him more dep ressed, including the recent loss of his father. He started drinking more. He has drank 5-7 40s daily over the last 1 or 2 weeks. He denies use of any other illicit drugs. He would like help quitting drinking again. - Related Data Allergies/Adverse Reactions: No Known Allergies Allergy (Verified 11/28/18 05:59) Home Medications: Buspirone. Atenolol Past Medical History - Social History Smoking Status: Current Every Day Smoker Frequency of alcohol use: Heavy Family History: Reviewed & Not Pertinent, CAD, DM, Hyperlipidemia, Hypertension - Past Medical History Cardiac Medical History: Reports: Hx Hypertension Denies: Hx Heart Attack Neurological Medical History: Denies: Hx Cerebrovascular Accident Renal/ Medical History: Denies: Hx Peritoneal Dialysis Musculoskeletal Medical History: Reports Hx Arthritis, Reports Hx Musculoskeletal Trauma Psychiatric Medical History: Reports: Hx Anxiety, Hx Depression Traumatic Medical History: Reports: Hx Fractures Past Surgical History: Reports: Hx Orthopedic Surgery - right knee - Immunizations Hx Diphtheria, Pertussis, Tetanus Vaccination: Yes Physical Exam - Vital signs Vitals: Temp Pulse Resp BP Pulse Ox 98.3 F 72 16 158/79 H 99 05/28/20 00:24 05/28/20 00:24 05/28/20 00:24 05/28/20 00:24 05/28/20 00:24 Course - Re-evaluation Re-evalutation: 05/28/20 05:37 Patient presents emergency department for evaluation. Laboratory investigations and medical clearance is ordered. His labs reveal a markedly elevated glucose. I went through and evaluated his glucoses in the past. He has not had a normal blood sugar since 2016. I will go ahead and start him on Metformin. I will also refill his atenolol. The importance of follow-up with a primary care provider was stressed to the patient and he voiced understanding. Otherwise, I expect that he will shortly have a blood alcohol level under 200, and repeat order has been placed. We spoke with [facility], they do have the opportunity for evaluation for a male bed at 8 AM. Patient will be sent there at that time for evaluation for alcohol detoxification. He is amenable to this plan. - Vital Signs Vital signs: Temp Pulse Resp BP Pulse Ox 98.3 F 72 16 158/79 H 99 05/28/20 00:36 05/28/20 00:36 05/28/20 00:36 05/28/20 00:36 05/28/20 00:36 - Laboratory Result Diagrams: 05/28/20 01:22 05/28/20 01:22 Laboratory results interpreted by me: 05/28/20 05/28/20 05/28/20 01:22 01:22 03:59 Plt Count 140 L Sodium 136.8 L Chloride 90 L Anion Gap 24 H Glucose 293 H AST 70 H Alkaline Phosphatase 156 H Urine Glucose (UA) >=500 H Urine Ketones TRACE H Urine Blood SMALL H Salicylates < 1.0 L Acetaminophen < 10 L Discharge - Discharge Clinical Impression: Alcohol intoxication, Alcohol abuse Diabetes Qualifiers: Diabetes mellitus type: type 2 Diabetes mellitus [employer] insulin use: without usp use Diabetes mellitus complication status: without complication Qualified Code(s): E11.9 - Type 2 diabetes mellitus without complications Condition: Stable Disposition: OTHER Instructions: Diabetes ([facility]), Chronic Alcoholism ([facility]), Acute Alcohol Intoxication ([facility]) Additional Instructions: You are to go to [place] immediately for further evaluation. Your blood sugar was high today, and you do have diabetes. Please take your medications as prescribed. It is very important that you follow-up with primary care in 1 to 2 weeks. You can contact the [facility], or on-call physician, listed below. Return to the emergency department with worsening or new concerning symptoms of any sort.
[2020-05-28 04:38] LABS: APPEARANCE,URINE CLEAR; BILIRUBIN,URINE NEGATIVE (NEGATIVE); COLOR,URINE YELLOW; GLUCOSE, URINE >=500 mg/dL (NEGATIVE); KETONES,URINE TRACE mg/dL (NEGATIVE); LEUKOCYTE ESTERASE,URINE NEGATIVE (NEGATIVE); NITRITE,URINE NEGATIVE (NEGATIVE); PROTEIN,URINE NEGATIVE (NEGATIVE); URINE AMPHETAMINES SCREEN NEGATIVE; URINE BARBITURATES SCREEN NEGATIVE; URINE BENZODIAZEPINES SCREEN NEGATIVE; URINE COCAINE SCREEN NEGATIVE; URINE MARIJUANA (THC) SCREEN NEGATIVE; URINE METHADONE SCREEN NEGATIVE; URINE PHENCYCLIDINE SCREEN NEGATIVE; URINE SPECIFIC GRAVITY 1.007; UROBILINOGEN,URINE NEGATIVE mg/dL (<2.0)
[2020-05-28] MEDS ORDERED: ATENOLOL 50 MG TABLET PO ONE (05:36)
[2020-05-28] MEDS ORDERED: METFORMIN HCL 500 MG TABLET PO ONE (05:37)
[2020-05-28 08:40] VITALS: BP 148/92
== END 2020-05-28 08:40 | disposition other institution (70) ==
LOC: ER 00:05
DX: F10.129 Alcohol abuse with intoxication, unspecified (principal); Y90.9 Presence of alcohol in blood, level not specified; E11.9 Type 2 diabetes mellitus without complications; F32.9 Major depressive disorder, single episode, unspecified; F17.200 Nicotine dependence, unspecified, uncomplicated; I10 Essential (primary) hypertension
CPT/HCPCS: 36415; 80053; 80307; 81001; 85025; 99285

== ENCOUNTER 2020-05-31 03:44 | Emergency (ER) | payer SELFPAY ==
[2020-05-31 03:55] VITALS: BP 118/68
== END 2020-05-31 05:35 | disposition left against medical advice (07) ==
LOC: ER 03:44
DX: Z53.21 Procedure and treatment not carried out due to patient leaving prior to being seen by health care provider (principal)
CPT/HCPCS: 82962

== ENCOUNTER 2020-07-16 10:51 | Emergency (ER) | payer SELFPAY ==
[2020-07-16 11:13] VITALS: BP 163/93
== END 2020-07-16 11:15 | disposition left against medical advice (07) ==
LOC: ER 10:51
DX: Z53.21 Procedure and treatment not carried out due to patient leaving prior to being seen by health care provider (principal)

== ENCOUNTER 2020-07-17 19:28 | Emergency (ER) | payer SELFPAY ==
[2020-07-17 19:44] VITALS: BP 144/82
--- NOTE | 2020-07-18 09:45 | EKG REPORT ---
SEVERITY:- BORDERLINE ECG - SINUS TACHYCARDIA PROBABLE LEFT ATRIAL ABNORMALITY : Confirmed by: Tom Hall MD 18-Jul-2020 09:44:49
== END 2020-07-17 20:20 | disposition left against medical advice (07) ==
LOC: ER 19:28
DX: Z53.21 Procedure and treatment not carried out due to patient leaving prior to being seen by health care provider (principal)
CPT/HCPCS: 93005; 93010

== ENCOUNTER → 2020-08-05 | Outpatient (CLI) | payer OTHER ==
--- OUTSIDE RECORDS SUMMARY | 2020-08-05 08:45 | XMS REPORT ---
:1970 Author Organization [facility] Address [facility] [place], [place] [address] [place] [address] Care Team Providers Name Role Phone [facility] Primary Care Physician Unavailable Allergies, Adverse Reactions, Alerts This patient has no known allergies or adverse reactions. Medications Ordered Filled Start Stop Current Ordering Indication Dosage Frequency Signature Comments Components Medication Medication Date Date Medication? Clinician (SIG) Name Name Paxil 20 MG 2020-1 Yes 20MG take one Oral TABLET 2-21 and half 00:00: tab PO 00 daily Ambien 10 2020-1 Yes 10MG take 1/2 MG Oral 2-21 half tab TABLET 00:00: PO HS 00 busPIRone 2020-1 Yes 15MG take one HCl 15 MG 2-21 PO Three Oral TABLET 00:00: times a 00 day busPIRone 2020-1 Yes 15MG take one HCl 15 MG 0-19 PO Three Oral TABLET 00:00: times a 00 day Paxil 20 MG 2020-1 Yes 20MG take one Oral TABLET 0-19 and half 00:00: tab PO 00 daily Ambien 10 2020-1 Yes 10MG take 1/2 MG Oral 0-19 half tab TABLET 00:00: PO HS 00 Ambien 10 2020-0 Yes 10MG take 1/2 MG Oral 9-18 [...] 00:00: times a 00 day Ambien 10 2020-0 Yes 10MG 1/2 QHS MG Oral 1-03 TABLET 00:00: 00 busPIRone 2019-0 Yes 10MG ONE TAB HCl 10 MG 1-03 Three Oral TABLET 00:00: times a day Paxil 20 MG 2020-0 Yes 20MG TAKE ONE Oral TABLET 1-03 AND HALF 00:00: TAB PO 00 DAILY Ambien 10 2018-07 No 10MG 1 HS MG Oral 1-25 TABLET 00:00: 00 cloNIDine 2018-07 No .1MG Take 1 HCl 0.1 MG 0-21 tablet at Oral TABLET 00:00: bedtime 00 Paxil 20 MG 2018-07 No 20MG TAKE ONE Oral TABLET 0-21 AND HALF 00:00: TAB PO 00 DAILY busPIRone 2018-07 No 10MG ONE TAB HCl 10 MG 0-21 Three Oral TABLET 00:00: times day Paxil 20 MG No 20MG TAKE ONE Oral TABLET 8-06 AND HALF 00:00: TAB PO DAILY busPIRone No 10MG ONE TAB HCl 10 MG 8-06 Three Oral TABLET 00:00: times day BusPIRone No 10MG ONE TAB HCl 10 MG 2-12 Three Oral TABLET 00:00: times day Paxil 20 MG No 20MG TAKE ONE Oral TABLET 2-12 AND HALF 00:00: TAB PO DAILY BusPIRone 2017-07 No 10MG ONE TAB HCl 10 MG 2-12 Three Oral TABLET 00:00: times day Paxil 20 MG 2017-07 No 20MG TAKE ONE Oral TABLET 2-12 AND HALF 00:00: TAB PO 00 DAILY metformin No metformin 500 mg 500 mg tablet TAKE tablet 1 TABLET BY TAKE 1 MOUTH TWICE TABLET BY DAILY FOR MOUTH 30 DAYS TWICE DAILY FOR 30 DAYS paroxetine No paroxetine 20 mg 20 mg tablet TAKE tablet 1 & 1 2 TAKE 1 & 1 (ONE & ONE 2 (ONE & HALF) ONE HALF) TABLETS BY TABLETS BY MOUTH ONCE MOUTH ONCE DAILY DAILY zolpidem 10 No zolpidem mg tablet 10 mg TAKE 1 2 tablet (ONE HALF) TAKE 1 2 TABLET BY (ONE HALF) MOUTH AT TABLET BY BEDTIME. MOUTH AT BEDTIME. atenolol 50 No 1 Q1D atenolol mg tablet 50 mg Take 1 tablet tablet Take 1 every day tablet by oral every day route. by oral route. buspirone No buspirone 15 mg 15 mg tablet TAKE tablet 1 TABLET BY TAKE 1 MOUTH THREE TABLET BY TIMES DAILY MOUTH THREE TIMES DAILY Problems Condition Condition Condition Status Onset Resolution Last Treatin g Comments Name Details Category Date Date Treatment Clinician Date Panic Concern Active 2019-07 disorder 2-21 without 00:00: agoraphobia 00 Anxiety Anxiety Problem Active 2019-07 2-10 00:00: 00 Depressive Depressive Problem Active 2019-07 disorder Disorder 2-10 00:00: 00 Essential Essential Problem Active 2019-07 hypertensio Hypertensio 2-10 n n 00:00: 00 Panic Concern Inactiv 2019-07 disorder e 0-16 without 00:00: agoraphobia 00 Panic Concern Inactiv 2019- disorder e 9-18 without 00:00: agoraphobia 00 Panic Concern Inactiv 2019- disorder e 6-22 without 00:00: agoraphobia 00 Panic Concern Inactiv 2019- disorder e 5-22 without 00:00: agoraphobia 00 Seasonal Seasonal [id number] Active 2019-10-[address] allergic allergic 16 15:18:33 Asses smen rhinitis rhinitis 00:00: t & Pl an: due to due to 00 Symptoms pollen pollen highly suggesti v e of seasonal allergie s and allergic rhinitis . Referral made to C for further evaluati o n for return t o work. Not on file Not on file [id number] Procedures This patient has no known procedures. Results Test Description Test Time Test Comments Text Results Atomic Results Result Comments Glucose 2020-06-30 05:24:00 Test Item Value Reference Range Comments Glucose (test code = 1558-6) 3+ mg/dL Godxwhjv8664-53-11 05:24:00 Test Item Value Reference Range Comments Chloride (test code = 2069-3) 98 mmol/L Tnhompbisg6042-47-63 05:24:00 Test Item Value Reference Range Comments Creatinine (test code = 53509-2) 0.8 mg/dL rFFN9924-19-82 05:24:00 Test Item Value Reference Range Comments eGFR (test code = 92069-7) BARBI: 109.2 AA: 132.4 Rxlkaml8792-40-67 05:24:00 Test Item Value Reference Range Comments Calcium (test code = 66969-8) 9.2 mg/dL TLE3746-19-15 05:24:00 Test Item Value Reference Range Comments ALT (test code = 6020-2) 33 U/L GHI8675-93-50 05:24:00 Test Item Value Reference Range Comments AST (test code = 60733-7) 33 U/L Ufjojnu8055-68-08 05:24:00 Test Item Value Reference Range Comments Albumin (test code = 1747-5) 4.4 g/dL Lnbsluldztm4854-12-86 05:24:00 Test Item Value Reference Range Comments Cholesterol (test code = 2093-3) 211 mg/dL Msdlfiuwrlsf4987-14-09 05:24:00 Test Item Value Reference Range Comments Triglyceride (test code = 3043-7) 210 mg/dL SGX3639-83-85 05:24:00 Test Item Value Reference Range Comments HDL (test code = 2085-9) 30 mg/dL SOO4378-56-62 05:24:00 Test Item Value Reference Range Comments RBC (test code = 76844-5) 4.96 M/mm3 Mh6679-79-22 05:24:00 Test Item Value Reference Range Comments Ph (test code = 37735-9) 5 Dwghjawjx8773-42-03 05:24:00 Test Item Value Reference Range Comments Bilirubin (test code = 00070-7) Negative Lmyphps7171-01-97 05:24:00 Test Item Value Reference Range Comments Ketones (test code = 38473-2) Negative Axymamc6474-58-37 05:24:00 Test Item Value Reference Range Comments Protein (test code = 73870-0) Negative Fvytfcppazqq6360-20-13 05:24:00 Test Item Value Reference Range Comments Urobilinogen (test code = 3107-0) Negative Vtcfn7479-63-35 05:24:00 Test Item Value Reference Range Comments Blood (test code = 882-1) Negative Red Blood Hmeo7373-91-97 05:24:00 Test Item Value Reference Range Comments Red Blood Cell (test code = 1007-4) 3 /HPF Vetboahy9318-34-91 05:24:00 Test Item Value Reference Range Comments Bacteria (test code = 93093-3) 3+ Wzaryzzderg4603-87-05 03:20:00 Test Item Value Reference Range Comments Amphetamine (test code = 11096-8) Not Detected Zmsfvnunvj3118-21-24 03:20:00 Test Item Value Reference Range Comments Gabapentin (test code = 9738-6) Not Detected Pmwaqkwl9401-22-94 03:20:00 Test Item Value Reference Range Comments Fentanyl (test code = 37561-8) Negative Hqdufkbh3116-80-24 03:20:00 Test Item Value Reference Range Comments Tramadol (test code = 74518-1) Not Detected 6-Pwcopqmcdqnpnhf5079-25Huicqncynrzycem3130-03-10 03:20:00 Test Item Value Reference Range Comments 7-Aminoclonazepam (test code = 19857-7) Not Detected Bpeuehtvqhm5911-64-58 03:20:00 Test Item Value Reference Range Comments Nordiazepam (test code = 21208-6) Not Detected Hlteiyud9245-79-55 03:20:00 Test Item Value Reference Range Comments Oxazepam (test code = 24530-5) Not Detected Nmxqxkdeugbsn9177-38-77 03:20:00 Test Item Value Reference Range Comments Buprenorphine (test code = 3414-0) Not Detected Ethyl Wdhozzyzvir8382-98-68 03:20:00 Test Item Value Reference Range Comments Ethyl Glucuronide (test code = 82947-2) Not Detected Tjiavdzoj4725-73-56 03:20:00 Test Item Value Reference Range Comments Methadone (test code = 3773-9) Not Detected Jkshchc6805-76-86 03:20:00 Test Item Value Reference Range Comments Codeine (test code = 86345-9) Not Detected fZ3707-85-07 03:20:00 Test Item Value Reference Range Comments pH (test code = 47257-1) 4.7 U/L Ldgjtrdrvrx5885-26-91 03:20:00 Test Item Value Reference Range Comments Hydrocodone (test code = 35989-5) Not Detected Nikuydpbbfdwi4113-27-29 03:20:00 Test Item Value Reference Range Comments Hydromorphone (test code = 9834-3) Not Detected Xddtzfqsa7720-69-19 03:20:00 Test Item Value Reference Range Comments Oxycodone (test code = 81782-3) Not Detected Arxqlegvrgg9415-98-40 03:20:00 Test Item Value Reference Range Comments Oxymorphone (test code = 16018-9) Not Detected Texuuzoqicvbp1055-55-60 03:20:00 Test Item Value Reference Range Comments Phencyclidine (test code = 8234-7) Not Detected Uexbiqrzswwtrqi9477-67-22 03:20:00 Test Item Value Reference Range Comments Benzoylecgonine (test code = 8187-7) Not Detected SARS-CoV-2 RNA Resp Ql BARBI+xzkeo7952-38-53 00:00:00 Test Item Value Reference Range Comments SARS-CoV-2 RNA Resp Ql Not detected [place] [facility] BARBI+probe (test code = ID: 10169 7921 25160-7) Qynsxiwqihrya0565-87-43 22:10:00 Test Item Value Reference Range Comments Phencyclidine (test code = 8234-7) Not Detected Xcbnmcanngyrrdp9219-31-35 22:10:00 Test Item Value Reference Range Comments Benzoylecgonine (test code = 8187-7) Not Detected Grxhjqkcnls1652-86-29 22:10:00 Test Item Value Reference Range Comments Amphetamine (test code = 52320-3) Not Detected Xisatevgpm2728-85-03 22:10:00 Test Item Value Reference Range Comments Gabapentin (test code = 9738-6) Not Detected Asbghrvt7867-51-71 22:10:00 Test Item Value Reference Range Comments Fentanyl (test code = 70375-4) Not Detected Ttlybhmq2187-08-34 22:10:00 Test Item Value Reference Range Comments Tramadol (test code = 79399-4) Not Detected 7-Kslpjftfrpwyiyi2029-40Fyxhdvvmdesprkk3605-03-24 22:10:00 Test Item Value Reference Range Comments 7-Aminoclonazepam (test code = 62922-5) Not Detected Fgakpepvsgk8660-77-02 22:10:00 Test Item Value Reference Range Comments Nordiazepam (test code = 57625-0) Not Detected Ijanixvn0218-86-59 22:10:00 Test Item Value Reference Range Comments Oxazepam (test code = 20008-1) Not Detected Itvrtkiqbkuxx4162-32-66 22:10:00 Test Item Value Reference Range Comments Buprenorphine (test code = 3414-0) Not Detected Ethyl Daizudhynvh1803-95-67 22:10:00 Test Item Value Reference Range Comments Ethyl Glucuronide (test code = 59653-4) Not Detected Bawvvjmpy4583-76-79 22:10:00 Test Item Value Reference Range Comments Methadone (test code = 3773-9) Not Detected Dveydqn0015-38-48 22:10:00 Test Item Value Reference Range Comments Codeine (test code = 60411-2) Not Detected fO7644-30-99 22:10:00 Test Item Value Reference Range Comments pH (test code = 00233-3) 4.7 U/L Purqyehevys1392-50-69 22:10:00 Test Item Value Reference Range Comments Hydrocodone (test code = 56610-7) Not Detected Ydqxcrbxrmhhw2644-49-09 22:10:00 Test Item Value Reference Range Comments Hydromorphone (test code = 9834-3) Not Detected Cgxlvhnpz6362-06-58 22:10:00 Test Item Value Reference Range Comments Oxycodone (test code = 50970-4) Not Detected Qyvdwvvuwua8804-88-14 22:10:00 Test Item Value Reference Range Comments Oxymorphone (test code = 01862-3) Not Detected Ljrzrhlcgly3321-59-97 21:39:00 Test Item Value Reference Range Comments Amphetamine (test code = 96057-8) Not Detected Dilbtogiom5811-79-81 21:39:00 Test Item Value Reference Range Comments Gabapentin (test code = 9738-6) Not Detected Rmpbmpfo6443-57-45 21:39:00 Test Item Value Reference Range Comments Fentanyl (test code = 59616-3) Not Detected Vzmhvaiz7106-72-54 21:39:00 Test Item Value Reference Range Comments Tramadol (test code = 11871-8) Not Detected 2-Ezlqurwwtesrzeo4167-48Iybxgomzyixknew7959-40-96 21:39:00 Test Item Value Reference Range Comments 7-Aminoclonazepam (test code = 40163-3) Not Detected Ggqzwqxkcis5609-00-22 21:39:00 Test Item Value Reference Range Comments Nordiazepam (test code = 50443-9) Not Detected Krtwxaxz0397-44-72 21:39:00 Test Item Value Reference Range Comments Oxazepam (test code = 01575-2) Not Detected Xngnmamgxvpki1834-39-56 21:39:00 Test Item Value Reference Range Comments Buprenorphine (test code = 3414-0) Not Detected Ethyl Tseorgfdpjm8574-12-34 21:39:00 Test Item Value Reference Range Comments Ethyl Glucuronide (test code = 77405-5) Not Detected Dywpktrfy5982-04-20 21:39:00 Test Item Value Reference Range Comments Methadone (test code = 3773-9) Not Detected Zgnqzqm3919-30-17 21:39:00 Test Item Value Reference Range Comments Codeine (test code = 39855-5) Not Detected aK0030-12-91 21:39:00 Test Item Value Reference Range Comments pH (test code = 43553-7) 5.6 U/L Cftzothsnen7148-49-90 21:39:00 Test Item Value Reference Range Comments Hydrocodone (test code = 91266-8) Not Detected Ogvlvrzeeezol8218-25-08 21:39:00 Test Item Value Reference Range Comments Hydromorphone (test code = 9834-3) Not Detected Kflsgdlfc4316-36-11 21:39:00 Test Item Value Reference Range Comments Oxycodone (test code = 99936-1) Not Detected Ipzwnujrvde8080-85-05 21:39:00 Test Item Value Reference Range Comments Oxymorphone (test code = 41569-8) Not Detected Mkaapmstjkfah9855-92-95 21:39:00 Test Item Value Reference Range Comments Phencyclidine (test code = 8234-7) Not Detected Ghbcvchvxlsqyhc2801-40-35 21:39:00 Test Item Value Reference Range Comments Benzoylecgonine (test code = 8187-7) Not Detected Unalamusqfa0272-27-82 20:48:00 Test Item Value Reference Range Comments Amphetamine (test code = 63844-5) Not Detected Yzfnricxgm8800-44-16 20:48:00 Test Item Value Reference Range Comments Gabapentin (test code = 9738-6) Not Detected Ztosllbs7422-04-80 20:48:00 Test Item Value Reference Range Comments Fentanyl (test code = 77854-8) Not Detected Jwrgooxg2911-99-26 20:48:00 Test Item Value Reference Range Comments Tramadol (test code = 64942-9) Not Detected 8-Wtrtivuluiqwlta9400-63Nnlkaozuxrzalaz1151-81-32 20:48:00 Test Item Value Reference Range Comments 7-Aminoclonazepam (test code = 29350-3) Not Detected Busmfrshmsh2348-73-49 20:48:00 Test Item Value Reference Range Comments Nordiazepam (test code = 02791-3) Not Detected Aagihrsw0503-29-03 20:48:00 Test Item Value Reference Range Comments Oxazepam (test code = 99509-3) Detected Xqwhpaddcpmil6075-26-17 20:48:00 Test Item Value Reference Range Comments Buprenorphine (test code = 3414-0) Not Detected Ethyl Utbicktyqzn1620-20-93 20:48:00 Test Item Value Reference Range Comments Ethyl Glucuronide (test code = 72919-9) Not Detected Hpdvqtoxd7239-70-01 20:48:00 Test Item Value Reference Range Comments Methadone (test code = 3773-9) Not Detected Gymwoko7403-63-03 20:48:00 Test Item Value Reference Range Comments Codeine (test code = 89264-5) Not Detected rZ5141-47-53 20:48:00 Test Item Value Reference Range Comments pH (test code = 73489-3) 4.6 U/L Tlvpaujhvjx4569-52-77 20:48:00 Test Item Value Reference Range Comments Hydrocodone (test code = 64836-7) Not Detected Jssnwcfvrnnje2187-15-44 20:48:00 Test Item Value Reference Range Comments Hydromorphone (test code = 9834-3) Not Detected Tresbfzdw2639-05-32 20:48:00 Test Item Value Reference Range Comments Oxycodone (test code = 65150-3) Not Detected Pkdomggfxde0886-84-23 20:48:00 Test Item Value Reference Range Comments Oxymorphone (test code = 23610-7) Not Detected Bjcwapxffdoca7680-60-64 20:48:00 Test Item Value Reference Range Comments Phencyclidine (test code = 8234-7) Not Detected Jiejctnpedwlrdw5272-25-44 20:48:00 Test Item Value Reference Range Comments Benzoylecgonine (test code = 8187-7) Not Detected Htqevqethai5606-70-21 20:48:00 Test Item Value Reference Range Comments Amphetamine (test code = 38876-9) Not Detected Csplcvlgkh7833-69-09 20:48:00 Test Item Value Reference Range Comments Gabapentin (test code = 9738-6) Not Detected Yelirzwu9131-08-50 20:48:00 Test Item Value Reference Range Comments Fentanyl (test code = 10498-5) Not Detected Movosxmr6203-31-13 20:48:00 Test Item Value Reference Range Comments Tramadol (test code = 06215-7) Not Detected 9-Ildjqfbzqfvuaix7164-02Vokvlgxkoevywtl7144-87-97 20:48:00 Test Item Value Reference Range Comments 7-Aminoclonazepam (test code = 57036-9) Not Detected Knsluhdegpq4594-35-48 20:48:00 Test Item Value Reference Range Comments Nordiazepam (test code = 36153-5) Not Detected Zlzfqieu1177-05-67 20:48:00 Test Item Value Reference Range Comments Oxazepam (test code = 93490-0) Not Detected Czctuahcknztz9723-17-92 20:48:00 Test Item Value Reference Range Comments Buprenorphine (test code = 3414-0) Not Detected Ethyl Ahkjyuyzale1868-17-11 20:48:00 Test Item Value Reference Range Comments Ethyl Glucuronide (test code = 70737-2) Not Detected Vipogijqg8662-19-65 20:48:00 Test Item Value Reference Range Comments Methadone (test code = 3773-9) Not Detected Ilzbogq3543-19-39 20:48:00 Test Item Value Reference Range Comments Codeine (test code = 95307-9) Not Detected gF3466-62-00 20:48:00 Test Item Value Reference Range Comments pH (test code = 54113-2) 5.5 U/L Zwerrcewgzh5168-00-40 20:48:00 Test Item Value Reference Range Comments Hydrocodone (test code = 02033-3) Not Detected Flhjggiqscdzb1796-63-95 20:48:00 Test Item Value Reference Range Comments Hydromorphone (test code = 9834-3) Not Detected Haecrlqkq9667-04-72 20:48:00 Test Item Value Reference Range Comments Oxycodone (test code = 07501-2) Not Detected Kkjorhwakhm2251-62-44 20:48:00 Test Item Value Reference Range Comments Oxymorphone (test code = 82871-6) Not Detected Rrnibkcbieoin4912-93-68 20:48:00 Test Item Value Reference Range Comments Phencyclidine (test code = 8234-7) Not Detected Uggywpmoqocvnmk0341-61-93 20:48:00 Test Item Value Reference Range Comments Benzoylecgonine (test code = 8187-7) Not Detected Kklbhdpjqia9400-10-92 21:40:00 Test Item Value Reference Range Comments Amphetamine (test code = 70157-0) Not Detected Ybbddluzbk5365-42-33 21:40:00 Test Item Value Reference Range Comments Gabapentin (test code = 9738-6) Not Detected Jxwsccko7780-77-59 21:40:00 Test Item Value Reference Range Comments Fentanyl (test code = 57952-9) Not Detected Ibrupwmm5966-55-56 21:40:00 Test Item Value Reference Range Comments Tramadol (test code = 25297-9) Not Detected 1-Fyvxnvkovdebjns6124-02Tdhoklwjygvlpuz5260-31-62 21:40:00 Test Item Value Reference Range Comments 7-Aminoclonazepam (test code = 93032-3) Not Detected Wpodznzfzur1724-34-85 21:40:00 Test Item Value Reference Range Comments Nordiazepam (test code = 42883-8) Not Detected Wbxqztbm6303-41-47 21:40:00 Test Item Value Reference Range Comments Oxazepam (test code = 65828-9) Not Detected Eaqntqcoeaxoq8328-43-09 21:40:00 Test Item Value Reference Range Comments Buprenorphine (test code = 3414-0) Not Detected Ethyl Qudgdsbkmfv0700-47-99 21:40:00 Test Item Value Reference Range Comments Ethyl Glucuronide (test code = 22340-7) Not Detected Rjymfflsr7040-69-32 21:40:00 Test Item Value Reference Range Comments Methadone (test code = 3773-9) Not Detected Ifvlzfx3506-97-80 21:40:00 Test Item Value Reference Range Comments Codeine (test code = 93831-1) Not Detected dF8659-20-60 21:40:00 Test Item Value Reference Range Comments pH (test code = 98036-3) 5.0 U/L Dlqsztlcadn7583-43-44 21:40:00 Test Item Value Reference Range Comments Hydrocodone (test code = 59491-3) Not Detected Uheueerszjgsg5505-97-90 21:40:00 Test Item Value Reference Range Comments Hydromorphone (test code = 9834-3) Not Detected Uaqxqyqmc9873-54-09 21:40:00 Test Item Value Reference Range Comments Oxycodone (test code = 28938-8) Not Detected Woqdadyrvzl1706-42-37 21:40:00 Test Item Value Reference Range Comments Oxymorphone (test code = 36507-7) Not Detected Yoogtrzsspzzp6829-74-86 21:40:00 Test Item Value Reference Range Comments Phencyclidine (test code = 8234-7) Not Detected Bjhgrjjixzpxqda0154-03-55 21:40:00 Test Item Value Reference Range Comments Benzoylecgonine (test code = 8187-7) Not Detected Aphfygejppf6824-63-49 21:07:00 Test Item Value Reference Range Comments Amphetamine (test code = 95950-7) Not Detected Ardieygwrm4688-29-11 21:07:00 Test Item Value Reference Range Comments Gabapentin (test code = 9738-6) Not Detected Wubmwfyi7273-27-27 21:07:00 Test Item Value Reference Range Comments Fentanyl (test code = 90798-8) Not Detected Byfhlrae3190-19-77 21:07:00 Test Item Value Reference Range Comments Tramadol (test code = 94360-8) Not Detected 1-Zurmrdopajhaghp2621-58Wryhlxouifjjhcl7836-93-20 21:07:00 Test Item Value Reference Range Comments 7-Aminoclonazepam (test code = 00953-3) Not Detected Ylxxkvcmbho8897-54-31 21:07:00 Test Item Value Reference Range Comments Nordiazepam (test code = 96521-8) Not Detected Bclkgoeh7024-17-85 21:07:00 Test Item Value Reference Range Comments Oxazepam (test code = 24324-0) Detected Oawwlvxvpszka5524-67-85 21:07:00 Test Item Value Reference Range Comments Buprenorphine (test code = 3414-0) Not Detected Ethyl Xiaiknlphzz7629-03-34 21:07:00 Test Item Value Reference Range Comments Ethyl Glucuronide (test code = 91631-2) Not Detected Poiddupfq9961-95-62 21:07:00 Test Item Value Reference Range Comments Methadone (test code = 3773-9) Not Detected Gupbksy5894-54-18 21:07:00 Test Item Value Reference Range Comments Codeine (test code = 29530-3) Not Detected sQ3576-63-41 21:07:00 Test Item Value Reference Range Comments pH (test code = 28485-1) 4.9 U/L Qmmxkdqpfbo2058-20-89 21:07:00 Test Item Value Reference Range Comments Hydrocodone (test code = 82665-6) Not Detected Btzmgvjelznza2492-89-20 21:07:00 Test Item Value Reference Range Comments Hydromorphone (test code = 9834-3) Not Detected Xcsjoanxl0234-87-24 21:07:00 Test Item Value Reference Range Comments Oxycodone (test code = 84204-8) Not Detected Fnrgsypxmyg1786-92-96 21:07:00 Test Item Value Reference Range Comments Oxymorphone (test code = 21053-1) Not Detected Dsggraqrzcikf7321-67-83 21:07:00 Test Item Value Reference Range Comments Phencyclidine (test code = 8234-7) Not Detected Iybzfudfxouztdd6518-93-56 21:07:00 Test Item Value Reference Range Comments Benzoylecgonine (test code = 8187-7) Not Detected Mdwzsnlrjcb5048-55-59 20:34:00 Test Item Value Reference Range Comments Amphetamine (test code = 60607-4) Not Detected Cgxahjiotp7668-86-36 20:34:00 Test Item Value Reference Range Comments Gabapentin (test code = 9738-6) Not Detected Ntctgmbj8787-11-10 20:34:00 Test Item Value Reference Range Comments Fentanyl (test code = 94433-3) Not Detected Tsqqqjre4133-63-88 20:34:00 Test Item Value Reference Range Comments Tramadol (test code = 62256-8) Not Detected 8-Eymralwcnquxayo3210-80Ssrplcmfyzrmrqj3546-54-44 20:34:00 Test Item Value Reference Range Comments 7-Aminoclonazepam (test code = 71517-3) Not Detected Mqkgsmsyjmd0154-91-59 20:34:00 Test Item Value Reference Range Comments Nordiazepam (test code = 64426-8) Not Detected Sucnznxl2677-05-73 20:34:00 Test Item Value Reference Range Comments Oxazepam (test code = 63013-1) Not Detected Ueoimftwdrrbj8207-30-65 20:34:00 Test Item Value Reference Range Comments Buprenorphine (test code = 3414-0) Not Detected Ethyl Ivwzxpuddei0407-99-89 20:34:00 Test Item Value Reference Range Comments Ethyl Glucuronide (test code = 70154-9) Not Detected Xjwvzuxth5827-02-89 20:34:00 Test Item Value Reference Range Comments Methadone (test code = 3773-9) Not Detected Nsajtwe2147-68-56 20:34:00 Test Item Value Reference Range Comments Codeine (test code = 78349-0) Not Detected Iiwqlgfj1961-46-04 20:34:00 Test Item Value Reference Range Comments Morphine (test code = 64347-3) Not Detected Pdapmkrdjkr6078-67-91 20:34:00 Test Item Value Reference Range Comments Hydrocodone (test code = 02852-1) Not Detected Aimfftcpwycdd3033-60-63 20:34:00 Test Item Value Reference Range Comments Hydromorphone (test code = 9834-3) Not Detected Rruzhhruz3170-04-69 20:34:00 Test Item Value Reference Range Comments Oxycodone (test code = 25966-1) Not Detected Ejoseowlixn0464-15-64 20:34:00 Test Item Value Reference Range Comments Oxymorphone (test code = 22231-5) Not Detected Kitatbkxriqpx3106-10-42 20:34:00 Test Item Value Reference Range Comments Phencyclidine (test code = 8234-7) Not Detected Xntgekpuysfcbfp5945-06-33 20:34:00 Test Item Value Reference Range Comments Benzoylecgonine (test code = 8187-7) Not Detected Kiogxjmupnb6329-66-24 14:54:00 Test Item Value Reference Range Comments Amphetamine (test code = 51919-1) Not Detected Cahsrolnew5311-08-71 14:54:00 Test Item Value Reference Range Comments Gabapentin (test code = 9738-6) Not Detected Ccfqkjzs1414-24-77 14:54:00 Test Item Value Reference Range Comments Fentanyl (test code = 24422-8) Not Detected Asdwqhnx3435-09-30 14:54:00 Test Item Value Reference Range Comments Tramadol (test code = 89455-9) Not Detected 0-Ndosmwsyiysgeja1356-18Kwkrslocmfkoakd8604-81-78 14:54:00 Test Item Value Reference Range Comments 7-Aminoclonazepam (test code = 97112-3) Not Detected Uqpghxtrazq6418-88-82 14:54:00 Test Item Value Reference Range Comments Nordiazepam (test code = 51603-1) Not Detected Vsqmannp4081-41-22 14:54:00 Test Item Value Reference Range Comments Oxazepam (test code = 48913-0) Detected Dperulcryairn3932-72-45 14:54:00 Test Item Value Reference Range Comments Buprenorphine (test code = 3414-0) Not Detected Ethyl Waytmtckgxj4987-51-68 14:54:00 Test Item Value Reference Range Comments Ethyl Glucuronide (test code = 08544-9) Not Detected Vdrdhgxlj9380-96-55 14:54:00 Test Item Value Reference Range Comments Methadone (test code = 3773-9) Not Detected Wrvsfmr0945-89-00 14:54:00 Test Item Value Reference Range Comments Codeine (test code = 28914-7) Not Detected Erxeovyf2629-88-22 14:54:00 Test Item Value Reference Range Comments Morphine (test code = 48861-5) Not Detected Hvdojubvbvb8646-11-02 14:54:00 Test Item Value Reference Range Comments Hydrocodone (test code = 89994-1) Not Detected Gzzggafncddcg1903-89-75 14:54:00 Test Item Value Reference Range Comments Hydromorphone (test code = 9834-3) Not Detected Drpfniuwh8469-80-03 14:54:00 Test Item Value Reference Range Comments Oxycodone (test code = 86868-4) Not Detected Lspwiontctt8259-44-59 14:54:00 Test Item Value Reference Range Comments Oxymorphone (test code = 80492-4) Not Detected Waxardhqrstzy0656-17-38 14:54:00 Test Item Value Reference Range Comments Phencyclidine (test code = 8234-7) Not Detected Iasutqydrxiicpj8064-06-85 14:54:00 Test Item Value Reference Range Comments Benzoylecgonine (test code = 8187-7) Not Detected Xfytukptvmh4892-78-82 16:38:00 Test Item Value Reference Range Comments Amphetamine (test code = 63264-2) Not Detected Baiarhclqz0040-79-90 16:38:00 Test Item Value Reference Range Comments Gabapentin (test code = 9738-6) Not Detected Lnlntfjx2715-23-33 16:38:00 Test Item Value Reference Range Comments Fentanyl (test code = 06367-2) Not Detected Etzawlmh6258-17-84 16:38:00 Test Item Value Reference Range Comments Tramadol (test code = 70264-5) Not Detected 1-Ncpdjtxqilbmkyl5949-23Izzkzcdvteguamh6601-23-60 16:38:00 Test Item Value Reference Range Comments 7-Aminoclonazepam (test code = 64140-0) Not Detected Shikjvwlxmj4727-44-21 16:38:00 Test Item Value Reference Range Comments Nordiazepam (test code = 84942-4) Not Detected Sagglsyn3647-96-80 16:38:00 Test Item Value Reference Range Comments Oxazepam (test code = 03104-5) Detected Cezxvhlvjdxpm6337-02-01 16:38:00 Test Item Value Reference Range Comments Buprenorphine (test code = 3414-0) Not Detected Ethyl Oxehodocghk7531-21-91 16:38:00 Test Item Value Reference Range Comments Ethyl Glucuronide (test code = 49021-6) Not Detected Yfcusswaw2842-60-30 16:38:00 Test Item Value Reference Range Comments Methadone (test code = 3773-9) Not Detected Xoohvsx3137-92-94 16:38:00 Test Item Value Reference Range Comments Codeine (test code = 71774-1) Not Detected Afbbipps0958-87-59 16:38:00 Test Item Value Reference Range Comments Morphine (test code = 76564-3) Not Detected Ojgnggzdpar4105-04-77 16:38:00 Test Item Value Reference Range Comments Hydrocodone (test code = 27873-6) Not Detected Yejsarepczfnu0460-80-17 16:38:00 Test Item Value Reference Range Comments Hydromorphone (test code = 9834-3) Not Detected Tvyxuyuzm0874-05-73 16:38:00 Test Item Value Reference Range Comments Oxycodone (test code = 65368-4) Not Detected Sggibgqslch7300-57-76 16:38:00 Test Item Value Reference Range Comments Oxymorphone (test code = 53926-6) Not Detected Jfzvlvmowersp6582-27-32 16:38:00 Test Item Value Reference Range Comments Phencyclidine (test code = 8234-7) Not Detected Euoqalszxdhewqj2356-67-37 16:38:00 Test Item Value Reference Range Comments Benzoylecgonine (test code = 8187-7) Not Detected Smlvmcznngj0213-44-73 16:36:00 Test Item Value Reference Range Comments Amphetamine (test code = 83932-6) Not Detected Dsnfzmuesy5308-27-11 16:36:00 Test Item Value Reference Range Comments Gabapentin (test code = 9738-6) Not Detected Resddkgz8664-40-94 16:36:00 Test Item Value Reference Range Comments Fentanyl (test code = 04959-9) Not Detected Hbovzkrm0929-60-55 16:36:00 Test Item Value Reference Range Comments Tramadol (test code = 50417-7) Not Detected 3-Rslifvphgnqrcke7602-59Eezsnbxgjtdmyot1536-40-74 16:36:00 Test Item Value Reference Range Comments 7-Aminoclonazepam (test code = 77171-5) Not Detected Gvosvbyigqd4481-79-00 16:36:00 Test Item Value Reference Range Comments Nordiazepam (test code = 70297-7) Not Detected Pticaevc2591-21-28 16:36:00 Test Item Value Reference Range Comments Oxazepam (test code = 92781-8) Detected Cywokrjurbwpn9201-70-39 16:36:00 Test Item Value Reference Range Comments Buprenorphine (test code = 3414-0) Not Detected Ethyl Zsrtujlnupn2406-54-16 16:36:00 Test Item Value Reference Range Comments Ethyl Glucuronide (test code = 19943-7) Not Detected Muyrhgshv3973-55-25 16:36:00 Test Item Value Reference Range Comments Methadone (test code = 3773-9) Not Detected Bfwxnar7214-63-34 16:36:00 Test Item Value Reference Range Comments Codeine (test code = 08075-8) Not Detected Edjyjkxh6712-89-67 16:36:00 Test Item Value Reference Range Comments Morphine (test code = 38898-4) Not Detected Spvnxfdeqtq4254-07-36 16:36:00 Test Item Value Reference Range Comments Hydrocodone (test code = 60365-1) Not Detected Onutxuorxpvuk0439-12-13 16:36:00 Test Item Value Reference Range Comments Hydromorphone (test code = 9834-3) Not Detected Vzkveqkje5153-97-28 16:36:00 Test Item Value Reference Range Comments Oxycodone (test code = 33631-9) Not Detected Uerlgsmcscl3405-56-92 16:36:00 Test Item Value Reference Range Comments Oxymorphone (test code = 27372-5) Not Detected Dlgqgwyvrpzyv7474-70-46 16:36:00 Test Item Value Reference Range Comments Phencyclidine (test code = 8234-7) Not Detected Enrbmkipwrhnrwf2771-12-56 16:36:00 Test Item Value Reference Range Comments Benzoylecgonine (test code = 8187-7) Not Detected Vvtlxcvxtts9920-17-71 16:43:00 Test Item Value Reference Range Comments Amphetamine (test code = 62840-2) Not Detected Ciotrusmrd1579-79-60 16:43:00 Test Item Value Reference Range Comments Gabapentin (test code = 9738-6) Not Detected Xyrowcjo9669-43-65 16:43:00 Test Item Value Reference Range Comments Fentanyl (test code = 22635-3) Not Detected Cjflajol6458-16-04 16:43:00 Test Item Value Reference Range Comments Tramadol (test code = 57754-2) Not Detected 3-Fzbkriseoapwept3816-03Nykyknjhkeawcel1282-22-37 16:43:00 Test Item Value Reference Range Comments 7-Aminoclonazepam (test code = 20054-9) Not Detected Iojnmqmzvee1950-69-65 16:43:00 Test Item Value Reference Range Comments Nordiazepam (test code = 81045-7) Not Detected Rgiylzql0634-60-51 16:43:00 Test Item Value Reference Range Comments Oxazepam (test code = 23112-7) Detected Sltqwmandiqap1321-23-74 16:43:00 Test Item Value Reference Range Comments Buprenorphine (test code = 3414-0) Not Detected Ethyl Xwpxcwlhqhw9368-44-84 16:43:00 Test Item Value Reference Range Comments Ethyl Glucuronide (test code = 36653-6) Not Detected Tqmmcrwrb0449-13-56 16:43:00 Test Item Value Reference Range Comments Methadone (test code = 3773-9) Not Detected Kwzotux5873-53-49 16:43:00 Test Item Value Reference Range Comments Codeine (test code = 77030-2) Not Detected Infelvpl3451-72-33 16:43:00 Test Item Value Reference Range Comments Morphine (test code = 39394-2) Not Detected Lvqtfrgpgdy3269-79-37 16:43:00 Test Item Value Reference Range Comments Hydrocodone (test code = 76911-3) Not Detected Bghbfnvjwxulj1275-07-15 16:43:00 Test Item Value Reference Range Comments Hydromorphone (test code = 9834-3) Not Detected Tsicuohvf4111-24-02 16:43:00 Test Item Value Reference Range Comments Oxycodone (test code = 52139-8) Not Detected Zxgkawrivjv3628-89-72 16:43:00 Test Item Value Reference Range Comments Oxymorphone (test code = 05554-8) Not Detected Ruhanbrwwhfbw7384-54-04 16:43:00 Test Item Value Reference Range Comments Phencyclidine (test code = 8234-7) Not Detected Nwdbgyxtynnjbzn1273-66-45 16:43:00 Test Item Value Reference Range Comments Benzoylecgonine (test code = 8187-7) Not Detected Uddwbpgqqxf0935-42-94 16:34:00 Test Item Value Reference Range Comments Amphetamine (test code = 49487-0) Not Detected Sjxwyaknjx5895-96-16 16:34:00 Test Item Value Reference Range Comments Gabapentin (test code = 9738-6) Not Detected Onhgeoen0927-89-24 16:34:00 Test Item Value Reference Range Comments Fentanyl (test code = 71624-1) Not Detected Fvxnfqnr7839-46-39 16:34:00 Test Item Value Reference Range Comments Tramadol (test code = 76030-4) Not Detected 0-Lfpbdlearmwnpmc7045-07Lajcawfpgxicbso0015-00-93 16:34:00 Test Item Value Reference Range Comments 7-Aminoclonazepam (test code = 02760-1) Not Detected Brvwlrxcwqy8130-15-09 16:34:00 Test Item Value Reference Range Comments Nordiazepam (test code = 61601-9) Not Detected Slbvxuoy1035-38-62 16:34:00 Test Item Value Reference Range Comments Oxazepam (test code = 17394-2) Detected Sndvdzktnrlcq6225-27-67 16:34:00 Test Item Value Reference Range Comments Buprenorphine (test code = 3414-0) Not Detected Ethyl Yvmgwuningz1570-77-73 16:34:00 Test Item Value Reference Range Comments Ethyl Glucuronide (test code = 51608-3) Not Detected Qpnndzfpc1281-03-73 16:34:00 Test Item Value Reference Range Comments Methadone (test code = 3773-9) Not Detected Zvclwpa3164-96-25 16:34:00 Test Item Value Reference Range Comments Codeine (test code = 05912-3) Not Detected Jhbdmgfz3754-77-63 16:34:00 Test Item Value Reference Range Comments Morphine (test code = 00878-4) Not Detected Xvelybqxlxh8260-42-90 16:34:00 Test Item Value Reference Range Comments Hydrocodone (test code = 30312-0) Not Detected Elyvairvypitb8519-74-18 16:34:00 Test Item Value Reference Range Comments Hydromorphone (test code = 9834-3) Not Detected Drlbtbnmi1079-03-41 16:34:00 Test Item Value Reference Range Comments Oxycodone (test code = 67734-2) Not Detected Ezgvrfkkqzu4361-83-70 16:34:00 Test Item Value Reference Range Comments Oxymorphone (test code = 96143-1) Not Detected Slexevjwscxek2618-35-28 16:34:00 Test Item Value Reference Range Comments Phencyclidine (test code = 8234-7) Not Detected Qyyizuyrkbdnixx6184-85-65 16:34:00 Test Item Value Reference Range Comments Benzoylecgonine (test code = 8187-7) Not Detected Hlfpccuigie7946-57-07 16:47:00 Test Item Value Reference Range Comments Amphetamine (test code = 52845-8) Not Detected Odudunpjlh7387-58-34 16:47:00 Test Item Value Reference Range Comments Gabapentin (test code = 9738-6) Not Detected Vmuxubyk4906-54-16 16:47:00 Test Item Value Reference Range Comments Fentanyl (test code = 17521-4) Not Detected Vipsllvl7780-36-49 16:47:00 Test Item Value Reference Range Comments Tramadol (test code = 67052-2) Not Detected 1-Yihwdugmnquadij5137-84Vpsgmitcqvzaqou7608-32-82 16:47:00 Test Item Value Reference Range Comments 7-Aminoclonazepam (test code = 16281-5) Not Detected Psqggqasdfs3027-20-42 16:47:00 Test Item Value Reference Range Comments Nordiazepam (test code = 96180-8) Not Detected Bkballgi6736-24-28 16:47:00 Test Item Value Reference Range Comments Oxazepam (test code = 60914-5) Detected Ssucpcahhfgcy9958-03-89 16:47:00 Test Item Value Reference Range Comments Buprenorphine (test code = 3414-0) Not Detected Ethyl Aegeisrucpb8681-46-20 16:47:00 Test Item Value Reference Range Comments Ethyl Glucuronide (test code = 73668-8) Not Detected Zedhgdtgm2191-46-29 16:47:00 Test Item Value Reference Range Comments Methadone (test code = 3773-9) Not Detected Vffvtef3213-19-77 16:47:00 Test Item Value Reference Range Comments Codeine (test code = 05894-4) Not Detected Vpqlntgi8422-36-47 16:47:00 Test Item Value Reference Range Comments Morphine (test code = 96157-7) Not Detected Zrfhznvylut8325-95-96 16:47:00 Test Item Value Reference Range Comments Hydrocodone (test code = 88472-9) Not Detected Rvswrtghadhuw8907-84-92 16:47:00 Test Item Value Reference Range Comments Hydromorphone (test code = 9834-3) Not Detected Aqfoodomu7997-46-64 16:47:00 Test Item Value Reference Range Comments Oxycodone (test code = 02611-6) Not Detected Hotswsvwlbh9774-92-70 16:47:00 Test Item Value Reference Range Comments Oxymorphone (test code = 67474-7) Not Detected Hsekpxmjtaxbs4169-33-68 16:47:00 Test Item Value Reference Range Comments Phencyclidine (test code = 8234-7) Not Detected Xkwnddanqampldi0911-70-92 16:47:00 Test Item Value Reference Range Comments Benzoylecgonine (test code = 8187-7) Not Detected Arjfhyqyznv3529-50-57 16:22:00 Test Item Value Reference Range Comments Amphetamine (test code = 15612-2) Not Detected Joihvamgpd0093-03-70 16:22:00 Test Item Value Reference Range Comments Gabapentin (test code = 9738-6) Not Detected Kgehhzfb6691-12-71 16:22:00 Test Item Value Reference Range Comments Fentanyl (test code = 22456-9) Not Detected Xvxxnptv4377-98-11 16:22:00 Test Item Value Reference Range Comments Tramadol (test code = 52356-6) Not Detected 5-Nacnwigfiglottd0201-70Ydhqkwyceliztej9906-27-88 16:22:00 Test Item Value Reference Range Comments 7-Aminoclonazepam (test code = 36123-3) Not Detected Ertvsgmqley4883-82-38 16:22:00 Test Item Value Reference Range Comments Nordiazepam (test code = 43981-4) Not Detected Jmtzqted1383-66-62 16:22:00 Test Item Value Reference Range Comments Oxazepam (test code = 82507-3) Detected Btuaapeocxjzo4192-59-09 16:22:00 Test Item Value Reference Range Comments Buprenorphine (test code = 3414-0) Not Detected Ethyl Hzmabvbakzk5008-62-08 16:22:00 Test Item Value Reference Range Comments Ethyl Glucuronide (test code = 94413-9) Not Detected Zbienmymf4085-54-71 16:22:00 Test Item Value Reference Range Comments Methadone (test code = 3773-9) Not Detected Ayrgrxj6195-48-32 16:22:00 Test Item Value Reference Range Comments Codeine (test code = 36797-0) Not Detected Qxlzwyuf7300-80-33 16:22:00 Test Item Value Reference Range Comments Morphine (test code = 58558-2) Not Detected Vnswkkxmdwn7429-66-44 16:22:00 Test Item Value Reference Range Comments Hydrocodone (test code = 66155-3) Not Detected Kscucdojdbzbm8170-40-89 16:22:00 Test Item Value Reference Range Comments Hydromorphone (test code = 9834-3) Not Detected Wweelttto2132-05-08 16:22:00 Test Item Value Reference Range Comments Oxycodone (test code = 22557-2) Not Detected Tlltbfbfoeg6032-71-24 16:22:00 Test Item Value Reference Range Comments Oxymorphone (test code = 83777-1) Not Detected Wyvnvntzfoxln7084-18-42 16:22:00 Test Item Value Reference Range Comments Phencyclidine (test code = 8234-7) Not Detected Bbwvmnecdclwjah6616-21-02 16:22:00 Test Item Value Reference Range Comments Benzoylecgonine (test code = 8187-7) Not Detected Fftijufbblv2534-14-36 21:10:00 Test Item Value Reference Range Comments Amphetamine (test code = 09339-7) Not Detected Tyqtvucrby8147-78-15 21:10:00 Test Item Value Reference Range Comments Gabapentin (test code = 9738-6) Not Detected Coyyoohv6465-63-16 21:10:00 Test Item Value Reference Range Comments Fentanyl (test code = 95909-5) Not Detected Bvsdmuaq9266-71-91 21:10:00 Test Item Value Reference Range Comments Tramadol (test code = 00514-7) Not Detected 5-Mgilqqothphubpw3742-17Dwllfdrsdvsmbeo4292-33-94 21:10:00 Test Item Value Reference Range Comments 7-Aminoclonazepam (test code = 22490-9) Not Detected Kjinzyhpeqz6705-42-64 21:10:00 Test Item Value Reference Range Comments Nordiazepam (test code = 42801-7) Not Detected Drlnhpds3679-30-21 21:10:00 Test Item Value Reference Range Comments Oxazepam (test code = 92905-4) 321 ng/mL Gaekhiqjuvjpw4203-94-97 21:10:00 Test Item Value Reference Range Comments Buprenorphine (test code = 3414-0) Not Detected Ethyl Wppbcdsgryn1295-60-05 21:10:00 Test Item Value Reference Range Comments Ethyl Glucuronide (test code = 21936-2) Not Detected Ycczxbusz2266-62-63 21:10:00 Test Item Value Reference Range Comments Methadone (test code = 3773-9) Not Detected Idtoxtg6247-07-45 21:10:00 Test Item Value Reference Range Comments Codeine (test code = 47047-2) Not Detected Esyxwwdn5480-69-51 21:10:00 Test Item Value Reference Range Comments Morphine (test code = 04679-0) Not Detected Rbphwcnwbks3222-50-17 21:10:00 Test Item Value Reference Range Comments Hydrocodone (test code = 61185-6) Not Detected Akwljidazojuw9784-95-43 21:10:00 Test Item Value Reference Range Comments Hydromorphone (test code = 9834-3) Not Detected Opyzoknet1952-87-07 21:10:00 Test Item Value Reference Range Comments Oxycodone (test code = 96012-4) Not Detected Ohnebonwiji7428-94-47 21:10:00 Test Item Value Reference Range Comments Oxymorphone (test code = 50901-6) Not Detected Adsdbbdrcxmjd1871-20-29 21:10:00 Test Item Value Reference Range Comments Phencyclidine (test code = 8234-7) Not Detected Evbxfftzndjuxnz3776-45-75 21:10:00 Test Item Value Reference Range Comments Benzoylecgonine (test code = 8187-7) Not Detected Qcurnjvphof7638-67-18 22:15:00 Test Item Value Reference Range Comments Amphetamine (test code = 82300-5) Not Detected Cwwnolnfnf4084-59-42 22:15:00 Test Item Value Reference Range Comments Gabapentin (test code = 9738-6) Not Detected Trbbbprv9014-68-90 22:15:00 Test Item Value Reference Range Comments Fentanyl (test code = 99595-9) Not Detected Kbzmzhhj4055-48-89 22:15:00 Test Item Value Reference Range Comments Tramadol (test code = 54960-7) Not Detected 3-Ovnxbuhvplhnonw1814-56Tcjfpqxcxnzrsaz2887-98-88 22:15:00 Test Item Value Reference Range Comments 7-Aminoclonazepam (test code = 77248-0) Not Detected Ovfjgaqnssp4102-54-28 22:15:00 Test Item Value Reference Range Comments Nordiazepam (test code = 27635-9) Not Detected Qbjrhlcl7810-83-14 22:15:00 Test Item Value Reference Range Comments Oxazepam (test code = 99342-4) 165 ng/mL Yadbslbqmzhis8631-31-62 22:15:00 Test Item Value Reference Range Comments Buprenorphine (test code = 3414-0) Not Detected Ethyl Rpypbtcspfg8399-15-64 22:15:00 Test Item Value Reference Range Comments Ethyl Glucuronide (test code = 96138-9) Not Detected Aokefsmpb9881-56-68 22:15:00 Test Item Value Reference Range Comments Methadone (test code = 3773-9) Not Detected Iahrtgd3940-88-26 22:15:00 Test Item Value Reference Range Comments Codeine (test code = 38009-7) Not Detected Oasoedmz4674-04-51 22:15:00 Test Item Value Reference Range Comments Morphine (test code = 74730-8) Not Detected Ljokqqrasab3805-96-94 22:15:00 Test Item Value Reference Range Comments Hydrocodone (test code = 04314-7) Not Detected Jlkvtjdizbqoc9165-21-19 22:15:00 Test Item Value Reference Range Comments Hydromorphone (test code = 9834-3) Not Detected Szpjuvdgg1205-55-73 22:15:00 Test Item Value Reference Range Comments Oxycodone (test code = 24328-1) Not Detected Qktanpdfvnk0729-94-19 22:15:00 Test Item Value Reference Range Comments Oxymorphone (test code = 88338-4) Not Detected Pwfmdmhzsterp6900-87-40 22:15:00 Test Item Value Reference Range Comments Phencyclidine (test code = 8234-7) Not Detected Umwftltvsvwspay2050-49-48 22:15:00 Test Item Value Reference Range Comments Benzoylecgonine (test code = 8187-7) Not Detected Tztiuqynkot0103-68-49 21:39:00 Test Item Value Reference Range Comments Amphetamine (test code = 44967-8) Not Detected Ifrhbuahiy6909-75-20 21:39:00 Test Item Value Reference Range Comments Gabapentin (test code = 9738-6) Not Detected Nxxdvpgy1173-48-90 21:39:00 Test Item Value Reference Range Comments Fentanyl (test code = 57150-2) Not Detected Kxmllmhd2232-88-77 21:39:00 Test Item Value Reference Range Comments Tramadol (test code = 23988-0) Not Detected 4-Vlvdfeklcxpkhoo8840-27Xbcgcfdtbdpzwqu7535-89-38 21:39:00 Test Item Value Reference Range Comments 7-Aminoclonazepam (test code = 40202-2) Not Detected Uvxqxwyukjh4340-32-13 21:39:00 Test Item Value Reference Range Comments Nordiazepam (test code = 49954-6) Not Detected Kdtdpczz8817-59-48 21:39:00 Test Item Value Reference Range Comments Oxazepam (test code = 42742-3) 276 ng/mL Uiorefdwcuqxg7534-99-03 21:39:00 Test Item Value Reference Range Comments Buprenorphine (test code = 3414-0) Not Detected Ethyl Yvsgyitkehr0925-50-63 21:39:00 Test Item Value Reference Range Comments Ethyl Glucuronide (test code = 19338-4) Not Detected Gsnqaopdo2847-87-16 21:39:00 Test Item Value Reference Range Comments Methadone (test code = 3773-9) Not Detected Ysgcamy6947-83-98 21:39:00 Test Item Value Reference Range Comments Codeine (test code = 41883-8) Not Detected Vmdfyneo9021-18-02 21:39:00 Test Item Value Reference Range Comments Morphine (test code = 70331-6) Not Detected Ajgpfglknzi1959-40-51 21:39:00 Test Item Value Reference Range Comments Hydrocodone (test code = 40902-6) Not Detected Bgbbqcipqxeke4898-24-37 21:39:00 Test Item Value Reference Range Comments Hydromorphone (test code = 9834-3) Not Detected Leononzlq6297-18-46 21:39:00 Test Item Value Reference Range Comments Oxycodone (test code = 50511-6) Not Detected Qpcrulwfuqo0984-47-84 21:39:00 Test Item Value Reference Range Comments Oxymorphone (test code = 49602-1) Not Detected Hmfdjckslfkfq5536-39-21 21:39:00 Test Item Value Reference Range Comments Phencyclidine (test code = 8234-7) Not Detected Ekyeuruhprzzpht2540-41-47 21:39:00 Test Item Value Reference Range Comments Benzoylecgonine (test code = 8187-7) Not Detected Gvxmjpkweag5565-79-52 20:48:00 Test Item Value Reference Range Comments Nordiazepam (test code = 71920-6) Not Detected Thijlpxx3283-78-65 20:48:00 Test Item Value Reference Range Comments Oxazepam (test code = 33860-0) 379 ng/mL Ozqdoowxxdmrj8588-75-82 20:48:00 Test Item Value Reference Range Comments Buprenorphine (test code = 3414-0) Not Detected Ethyl Daipcciasxi2201-45-50 20:48:00 Test Item Value Reference Range Comments Ethyl Glucuronide (test code = 03081-7) Not Detected Hcuikdbji0013-71-27 20:48:00 Test Item Value Reference Range Comments Methadone (test code = 3773-9) Not Detected Ppnnfmx0277-74-76 20:48:00 Test Item Value Reference Range Comments Codeine (test code = 98806-5) Not Detected Szpsfbvv0447-28-72 20:48:00 Test Item Value Reference Range Comments Morphine (test code = 58388-0) Not Detected Ikejpdlavnj8689-96-50 20:48:00 Test Item Value Reference Range Comments Hydrocodone (test code = 52942-9) Not Detected Fgwajsmsjfmtk7511-28-75 20:48:00 Test Item Value Reference Range Comments Hydromorphone (test code = 9834-3) Not Detected Ixpxmovzy4477-93-76 20:48:00 Test Item Value Reference Range Comments Oxycodone (test code = 45775-5) Not Detected Sjhchdlbbia1801-15-34 20:48:00 Test Item Value Reference Range Comments Oxymorphone (test code = 24306-1) Not Detected Vldplfyfqhdhr5519-71-09 20:48:00 Test Item Value Reference Range Comments Phencyclidine (test code = 8234-7) Not Detected Lsuuxvarexsrelj2508-57-70 20:48:00 Test Item Value Reference Range Comments Benzoylecgonine (test code = 8187-7) Not Detected Bzpmlohumwn9706-35-32 20:48:00 Test Item Value Reference Range Comments Amphetamine (test code = 15670-6) Not Detected Mgpmhtqisc6013-78-90 20:48:00 Test Item Value Reference Range Comments Gabapentin (test code = 9738-6) Not Detected Idajxibk9546-25-85 20:48:00 Test Item Value Reference Range Comments Fentanyl (test code = 70270-2) Not Detected Uayyjmqj2019-50-12 20:48:00 Test Item Value Reference Range Comments Tramadol (test code = 18238-9) Not Detected 2-Qacheucelnhubzu9943-31Qtdxzauopjhiabm0154-02-15 20:48:00 Test Item Value Reference Range Comments 7-Aminoclonazepam (test code = 59464-6) Not Detected Zkmfczsq9408-11-51 21:09:00 Test Item Value Reference Range Comments Oxazepam (test code = 32095-6) 753 ng/mL Fygwhvgqxdcpf6087-49-20 21:09:00 Test Item Value Reference Range Comments Buprenorphine (test code = 3414-0) Not Detected Ethyl Eqwivueeyea0959-22-30 21:09:00 Test Item Value Reference Range Comments Ethyl Glucuronide (test code = 54713-0) Not Detected Bnibwalxi3809-81-88 21:09:00 Test Item Value Reference Range Comments Methadone (test code = 3773-9) Not Detected Jyxhuuy8642-80-31 21:09:00 Test Item Value Reference Range Comments Codeine (test code = 82258-5) Not Detected Ktxomrkz3303-70-64 21:09:00 Test Item Value Reference Range Comments Morphine (test code = 36576-1) Not Detected Ebutvraceqs1188-08-78 21:09:00 Test Item Value Reference Range Comments Hydrocodone (test code = 38989-9) Not Detected Otykkjwhivbga2421-66-94 21:09:00 Test Item Value Reference Range Comments Hydromorphone (test code = 9834-3) Not Detected Hcaojofod1038-41-36 21:09:00 Test Item Value Reference Range Comments Oxycodone (test code = 42223-6) Not Detected Mgwyxcrxqiw9559-11-80 21:09:00 Test Item Value Reference Range Comments Oxymorphone (test code = 64404-9) Not Detected Apfnqdfqxyulq8297-96-13 21:09:00 Test Item Value Reference Range Comments Phencyclidine (test code = 8234-7) Not Detected Iarmttfmundadbg0675-27-33 21:09:00 Test Item Value Reference Range Comments Benzoylecgonine (test code = 8187-7) Not Detected Jjinqhbngqz2942-18-25 21:09:00 Test Item Value Reference Range Comments Amphetamine (test code = 22594-4) Not Detected Xdroadogff0580-03-45 21:09:00 Test Item Value Reference Range Comments Gabapentin (test code = 9738-6) Not Detected Dlzgwppw5023-09-22 21:09:00 Test Item Value Reference Range Comments Fentanyl (test code = 27493-4) Not Detected Uyjfszjl8865-00-17 21:09:00 Test Item Value Reference Range Comments Tramadol (test code = 70149-1) Not Detected 1-Xnfnyvlbfnyimgs5624-47Drbsdbuegcyghsr2093-52-78 21:09:00 Test Item Value Reference Range Comments 7-Aminoclonazepam (test code = 43452-1) Not Detected Mgfryqdabdg6857-88-70 21:09:00 Test Item Value Reference Range Comments Nordiazepam (test code = 44202-9) Not Detected Vudpsvklhgb6212-13-11 20:18:00 Test Item Value Reference Range Comments Amphetamine (test code = 48640-8) Not Detected Wofksdtzea1220-10-78 20:18:00 Test Item Value Reference Range Comments Gabapentin (test code = 9738-6) Not Detected Dtlsbkkj5780-88-47 20:18:00 Test Item Value Reference Range Comments Fentanyl (test code = 32141-2) Not Detected Mlmhityi4940-81-34 20:18:00 Test Item Value Reference Range Comments Tramadol (test code = 66466-5) Not Detected 8-Drebkviphoxzvyd4707-53Iyfqseqhjfwnkws9808-08-84 20:18:00 Test Item Value Reference Range Comments 7-Aminoclonazepam (test code = 68165-4) Not Detected Iioldktpmzl9775-17-33 20:18:00 Test Item Value Reference Range Comments Nordiazepam (test code = 69770-7) Not Detected Gkdathyt2889-87-02 20:18:00 Test Item Value Reference Range Comments Oxazepam (test code = 03858-9) 847 ng/mL Vahpgcpttaifb6366-55-80 20:18:00 Test Item Value Reference Range Comments Buprenorphine (test code = 3414-0) Not Detected Ethyl Sdsqclkupcd4965-99-15 20:18:00 Test Item Value Reference Range Comments Ethyl Glucuronide (test code = 36552-1) Not Detected Nnrekmein7421-80-65 20:18:00 Test Item Value Reference Range Comments Methadone (test code = 3773-9) Not Detected Xjvhihh7284-40-35 20:18:00 Test Item Value Reference Range Comments Codeine (test code = 61974-1) Not Detected Cwoypgiz0383-75-93 20:18:00 Test Item Value Reference Range Comments Morphine (test code = 70086-7) Not Detected Djhoqrcakev2422-87-72 20:18:00 Test Item Value Reference Range Comments Hydrocodone (test code = 09136-8) Not Detected Tgnaoxfknsxav0692-59-42 20:18:00 Test Item Value Reference Range Comments Hydromorphone (test code = 9834-3) Not Detected Lxtpuxjyj2729-75-51 20:18:00 Test Item Value Reference Range Comments Oxycodone (test code = 45378-8) Not Detected Tpfyhduniog0082-77-26 20:18:00 Test Item Value Reference Range Comments Oxymorphone (test code = 46716-6) Not Detected Mrszvkxxbyxel0985-48-32 20:18:00 Test Item Value Reference Range Comments Phencyclidine (test code = 8234-7) Not Detected Mrgjkjofldgpupd4047-16-75 20:18:00 Test Item Value Reference Range Comments Benzoylecgonine (test code = 8187-7) Not Detected Vscgdmhcdpp0858-55-08 20:58:00 Test Item Value Reference Range Comments Amphetamine (test code = 78803-1) Not Detected Iovuvciijh6439-94-13 20:58:00 Test Item Value Reference Range Comments Gabapentin (test code = 9738-6) Not Detected Ysnhznso2770-11-31 20:58:00 Test Item Value Reference Range Comments Fentanyl (test code = 22873-7) Not Detected Rjmuzfge7993-90-13 20:58:00 Test Item Value Reference Range Comments Tramadol (test code = 36084-5) Not Detected 6-Ddgytitqcrlxpur7696-48Psiznkzvfwhxbru4853-73-35 20:58:00 Test Item Value Reference Range Comments 7-Aminoclonazepam (test code = 16251-0) Not Detected Tdgwgmxnqla7244-39-34 20:58:00 Test Item Value Reference Range Comments Nordiazepam (test code = 95788-8) Not Detected Knlritxh6832-28-86 20:58:00 Test Item Value Reference Range Comments Oxazepam (test code = 14938-4) 666 ng/mL Rzlvdyadqilfp0216-69-75 20:58:00 Test Item Value Reference Range Comments Buprenorphine (test code = 3414-0) Not Detected Ethyl Lymnzuwbwvg9151-46-89 20:58:00 Test Item Value Reference Range Comments Ethyl Glucuronide (test code = 63998-0) Not Detected Fkqnwutjx8425-21-03 20:58:00 Test Item Value Reference Range Comments Methadone (test code = 3773-9) Not Detected Bphzgws3338-41-38 20:58:00 Test Item Value Reference Range Comments Codeine (test code = 28354-9) Not Detected Akfrybbe9955-31-27 20:58:00 Test Item Value Reference Range Comments Morphine (test code = 91687-4) Not Detected Yiqaczxirdg4426-13-97 20:58:00 Test Item Value Reference Range Comments Hydrocodone (test code = 48597-3) Not Detected Ibfbbkhrxeopf2929-27-68 20:58:00 Test Item Value Reference Range Comments Hydromorphone (test code = 9834-3) Not Detected Onkswmcaj6836-41-64 20:58:00 Test Item Value Reference Range Comments Oxycodone (test code = 95064-1) Not Detected Ynaragowfxg2101-35-02 20:58:00 Test Item Value Reference Range Comments Oxymorphone (test code = 00960-5) Not Detected Hplelcgqpayvg1676-60-13 20:58:00 Test Item Value Reference Range Comments Phencyclidine (test code = 8234-7) Not Detected Aqizeqrtqauvwcp3352-78-35 20:58:00 Test Item Value Reference Range Comments Benzoylecgonine (test code = 8187-7) Not Detected Wjkcdzxogcu3954-14-21 21:19:00 Test Item Value Reference Range Comments Amphetamine (test code = 01201-3) Not Detected Upwyzlcqho9565-96-59 21:19:00 Test Item Value Reference Range Comments Gabapentin (test code = 9738-6) Not Detected Ivxrdkvs5335-10-55 21:19:00 Test Item Value Reference Range Comments Fentanyl (test code = 48317-3) Not Detected Utpykyng3345-60-51 21:19:00 Test Item Value Reference Range Comments Tramadol (test code = 34255-4) Not Detected 7-Slygjqoqdlaqcgt1298-92Eefgfnuyqpxsfmi2711-96-81 21:19:00 Test Item Value Reference Range Comments 7-Aminoclonazepam (test code = 11999-9) Not Detected Vmshqzkqtyt0040-50-13 21:19:00 Test Item Value Reference Range Comments Nordiazepam (test code = 23259-7) Not Detected Eodfwace8397-88-45 21:19:00 Test Item Value Reference Range Comments Oxazepam (test code = 31111-0) 502 ng/mL Wuikmrposfzbf9739-23-71 21:19:00 Test Item Value Reference Range Comments Buprenorphine (test code = 3414-0) Not Detected Ethyl Ndcbphmvpzj4231-48-32 21:19:00 Test Item Value Reference Range Comments Ethyl Glucuronide (test code = 21312-2) Not Detected Znlrhhiss7350-95-08 21:19:00 Test Item Value Reference Range Comments Methadone (test code = 3773-9) Not Detected Oebkmif0033-28-98 21:19:00 Test Item Value Reference Range Comments Codeine (test code = 44934-6) Not Detected Sfvuewah1177-33-42 21:19:00 Test Item Value Reference Range Comments Morphine (test code = 31017-2) Not Detected Joatbtkzdbu8645-98-68 21:19:00 Test Item Value Reference Range Comments Hydrocodone (test code = 90677-8) Not Detected Gjdacrxlvhqun7062-16-56 21:19:00 Test Item Value Reference Range Comments Hydromorphone (test code = 9834-3) Not Detected Cribgzjnf4772-15-91 21:19:00 Test Item Value Reference Range Comments Oxycodone (test code = 30835-9) Not Detected Ozfsyoxxxws0509-64-66 21:19:00 Test Item Value Reference Range Comments Oxymorphone (test code = 59710-1) Not Detected Tdsbveqyjpheb0547-69-68 21:19:00 Test Item Value Reference Range Comments Phencyclidine (test code = 8234-7) Not Detected Cgebgrauixtotqv3764-21-76 21:19:00 Test Item Value Reference Range Comments Benzoylecgonine (test code = 8187-7) Not Detected Tosyaonxmzumm6364-16-24 11:39:00 Test Item Value Reference Range Comments Phencyclidine (test code = 8234-7) Not Detected Nksdhndjtvypiio3215-08-42 11:39:00 Test Item Value Reference Range Comments Benzoylecgonine (test code = 8187-7) Not Detected Mdpmghdqpba5409-08-16 11:39:00 Test Item Value Reference Range Comments Amphetamine (test code = 34965-7) Not Detected Lvvyjlojap1303-56-61 11:39:00 Test Item Value Reference Range Comments Gabapentin (test code = 9738-6) Not Detected Wtmdxuoe0051-75-13 11:39:00 Test Item Value Reference Range Comments Fentanyl (test code = 63394-4) Not Detected Zuwbqtfe1264-89-53 11:39:00 Test Item Value Reference Range Comments Tramadol (test code = 92348-3) Not Detected 5-Erouqwscfjavbbc3406-24Itwnfhhommarrhd3975-83-82 11:39:00 Test Item Value Reference Range Comments 7-Aminoclonazepam (test code = 00720-2) Not Detected Lwrvbhcbwjg8913-06-11 11:39:00 Test Item Value Reference Range Comments Nordiazepam (test code = 23354-1) Not Detected Wcmdlmac8199-69-94 11:39:00 Test Item Value Reference Range Comments Oxazepam (test code = 45703-4) 424 ng/mL Tjeglkpscgknh2414-38-63 11:39:00 Test Item Value Reference Range Comments Buprenorphine (test code = 3414-0) Not Detected Ethyl Xqdkkcufelb4248-47-11 11:39:00 Test Item Value Reference Range Comments Ethyl Glucuronide (test code = 20619-2) Not Detected Kuicxphdn1989-87-48 11:39:00 Test Item Value Reference Range Comments Methadone (test code = 3773-9) Not Detected Dunavmk3957-60-04 11:39:00 Test Item Value Reference Range Comments Codeine (test code = 65127-5) Not Detected Zluelasd6505-41-02 11:39:00 Test Item Value Reference Range Comments Morphine (test code = 25853-9) Not Detected Tqyttwtazfb5686-35-91 11:39:00 Test Item Value Reference Range Comments Hydrocodone (test code = 75718-5) Not Detected Caarqorqbmzbp4873-12-95 11:39:00 Test Item Value Reference Range Comments Hydromorphone (test code = 9834-3) Not Detected Xwrnypxjz8710-27-98 11:39:00 Test Item Value Reference Range Comments Oxycodone (test code = 39829-9) Not Detected Bhescbgfifn3098-88-87 11:39:00 Test Item Value Reference Range Comments Oxymorphone (test code = 10951-5) Not Detected Louauhtyll4812-70-88 11:39:00 Test Item Value Reference Range Comments Meperidine (test code = 3746-5) Not Detected Unfsiiwskrbxh7636-70-69 22:14:00 Test Item Value Reference Range Comments Phencyclidine (test code = 8234-7) Not Detected Xlgypzanvkuyghv0653-46-94 22:14:00 Test Item Value Reference Range Comments Benzoylecgonine (test code = 8187-7) Not Detected Fjvfkzahhoe5475-99-09 22:14:00 Test Item Value Reference Range Comments Amphetamine (test code = 60935-2) Not Detected Sbvjyimsob8902-30-90 22:14:00 Test Item Value Reference Range Comments Gabapentin (test code = 9738-6) Not Detected Yjxveeaa2358-64-22 22:14:00 Test Item Value Reference Range Comments Fentanyl (test code = 48375-7) Not Detected Njorvwnd6737-43-81 22:14:00 Test Item Value Reference Range Comments Tramadol (test code = 25871-6) Not Detected 0-Ijowljwqxrkfivr4089-83Muhacryooynsurb0210-26-51 22:14:00 Test Item Value Reference Range Comments 7-Aminoclonazepam (test code = 56195-9) Not Detected Fnbfxrlfiot2373-50-87 22:14:00 Test Item Value Reference Range Comments Nordiazepam (test code = 65221-8) Not Detected Npyygnas0653-39-84 22:14:00 Test Item Value Reference Range Comments Oxazepam (test code = 18828-6) 602 ng/mL Eftndqomegdwo3909-68-67 22:14:00 Test Item Value Reference Range Comments Buprenorphine (test code = 3414-0) Not Detected Ethyl Lfnntiaydtq3315-23-72 22:14:00 Test Item Value Reference Range Comments Ethyl Glucuronide (test code = 43688-0) 4744 ng/mL Vlabkuosx9133-40-97 22:14:00 Test Item Value Reference Range Comments Methadone (test code = 3773-9) Not Detected Jqhjhve4858-67-06 22:14:00 Test Item Value Reference Range Comments Codeine (test code = 62976-9) Not Detected Wbkdynqi1012-47-48 22:14:00 Test Item Value Reference Range Comments Morphine (test code = 96793-9) Not Detected Mbxqmcrrzom3450-20-30 22:14:00 Test Item Value Reference Range Comments Hydrocodone (test code = 19235-0) Not Detected Cpypetdaopohg1110-28-78 22:14:00 Test Item Value Reference Range Comments Hydromorphone (test code = 9834-3) Not Detected Jwvahouum4250-29-02 22:14:00 Test Item Value Reference Range Comments Oxycodone (test code = 48904-1) Not Detected Fkzcldwwbbj0590-71-18 22:14:00 Test Item Value Reference Range Comments Oxymorphone (test code = 50553-1) Not Detected Cvkjnshumb4795-41-15 22:14:00 Test Item Value Reference Range Comments Meperidine (test code = 3746-5) Not Detected Assessments Condition Name Status Diagnosis Date Treating Clinici an Essential hypertension Active 2020-06-24 13:17:37 Encounters Start End Encounter Admission Attending Care Care Encounter Date/Time Date/Time Type Type Clinicians Facility Department ID 2020-07-05 2020-07-05 Eval & Mgt [facility] [id number] 09:20:00 09:40:00 visit for Health Services [id number] estab pt Services 6-4u9s28d4z expanded 1a2 2020-07-05 2020-07-05 Psychotherap [facility] 6 [id number] 08:00:00 08:30:00 y 30 Health Services c4-32q0-8p5 Services [id number] 372 2020-06-24 2020-06-24 Henrique Brown [id number] 00:00:00 00:00:00 MD [facility] [address] [facility], [place] [address], Ph. 2020-04-30 2020-04-30 Eval & Mgt [facility] 1dc [id number] 09:00:00 09:20:00 visit for Health Services b4-7g10-f4t estab pt Services 9-az6m9c59t expanded 95a 2020-04-02 2020-04-02 Eval & Mgt [facility] [id number] 09:40:00 10:00:00 visit for Health Services 83-416a-b7a estab pt Services 5-1i35fe39j detailed 9df 2020-01-05 2020-01-05 Psychotherap [facility] e [id number] 10:06:00 10:38:00 y 30 Health Services 45-4306-aa1 Services 4-[id number] d0a 2019-12-05 2019-12-05 Eval & Mgt [facility] 8b7 x0x97-79 11:00:00 11:20:00 visit for Health Services c8-413d-8b5 estab pt Services 5-2te2zq144 detailed faf 2019-12-05 2019-12-05 Psychiatric [facility] 2c [id number] 00:00:00 00:00:00 [facility] f2-5p6w-2w c Evaluation Services 2-n7y9bv3o5 7a6 2019-10-30 2019-10-30 Outpatient [facility] [id number]_ 16:17:22 16:18:03 [id number] 2019-10-30 2019-10-30 Outpatient [facility] [id number] 14:00:00 14:20:00 2019-10-30 2019-10-30 Outpatient [facility] [id number]_ 00:00:00 00:00:00 [id number] 2019-10-30 Outpatient [facility] [id number] 00:00:00 00:00:00 2019-10-30 2019-10-30 Outpatient [facility] [id number] 00:00:00 00:00:00 Plan of Treatment Planned Activity Planned Date Details Comments Future Scheduled Test [code = ] Future Scheduled Test [code = ] Future Scheduled Test [code = ] Future Scheduled Test [code = ] Social History Smoking Status Start Date Stop Date Heavy Tobacco Smoker Vital Signs Vital Name Observation Time Observation Value Comments Height 2020-07-05 09:20:00 71 [in_i] Height 2020-04-30 09:00:00 71 [in_i] Height 2020-04-02 09:40:00 71 [in_i] Hospital Discharge Instructions 1. Essential hypertension atenolol 50 mg tablet Discussion Note: None recorded. Patient educational handouts: No information available.
[2020-08-05 09:55] LABS: ABSOLUTE BASOPHILS # (AUTO) 0.1 10^3/uL (0.0-0.2); ABSOLUTE EOSINOPHILS # (AUTO) 0.2 10^3/uL (0.0-0.6); ABSOLUTE LYMPHOCYTES (AUTO) 3.1 10^3/uL (0.5-4.7); ABSOLUTE MONOCYTES (AUTO) 0.7 10^3/uL (0.1-1.4); ABSOLUTE NEUT (AUTO) 7.4 10^3/uL (1.7-8.2); BASOPHILS % (AUTO) 0.9 % (0-2); EOSINOPHILS % (AUTO) 1.7 % (0-6); HEMATOCRIT 40.1 % (37.9-51.0); HEMOGLOBIN 13.5 g/dL (13.5-17.0); LYMPHOCYTES % (AUTO) 27.2 % (13-45); MEAN CORPUSCULAR HEMOGLOBIN 28.7 pg (27.0-33.4); MEAN CORPUSCULAR HGB CONC 33.8 g/dL (32.0-36.0); MEAN CORPUSCULAR VOLUME 85 fl (80-97); MONOCYTES % (AUTO) 6.2 % (3-13); PLATELET COUNT 492 10^3/uL (150-450); RED BLOOD COUNT 4.73 10^6/uL (4.35-5.55); RED CELL DISTRIBUTION WIDTH 13.1 % (11.5-14.0); TOTAL CELLS COUNTED % (AUTO) 100 %; WHITE BLOOD COUNT 11.5 10^3/uL (4.0-10.5)
[2020-08-05 10:12] LABS: APPEARANCE,URINE CLEAR; BILIRUBIN,URINE NEGATIVE (NEGATIVE); COLOR,URINE YELLOW; GLUCOSE, URINE NEGATIVE (NEGATIVE); KETONES,URINE NEGATIVE (NEGATIVE); LEUKOCYTE ESTERASE,URINE NEGATIVE (NEGATIVE); NITRITE,URINE NEGATIVE (NEGATIVE); PROTEIN,URINE NEGATIVE (NEGATIVE); URINE SPECIFIC GRAVITY 1.009; UROBILINOGEN,URINE NEGATIVE mg/dL (<2.0)
[2020-08-05 10:21] LABS: ALBUMIN 3.8 g/dL (3.5-5.0); ALKALINE PHOSPHATASE 109 U/L (38-126); ANION GAP 8 (5-19); ASPARTATE AMINO TRANSFERASE 20 U/L (17-59); BILIRUBIN,DIRECT 0.2 mg/dL (0.0-0.4); BILIRUBIN,TOTAL 0.4 mg/dL (0.2-1.3); BLOOD UREA NITROGEN 8 mg/dL (7-20); CALCIUM 10.3 mg/dL (8.4-10.2); CARBON DIOXIDE 30 mmol/L (22-30); CHLORIDE 98 mmol/L (98-107); CHOLESTEROL 208.86 mg/dL (0-200); GLUCOSE 113 mg/dL (75-110); POTASSIUM 5.1 mmol/L (3.6-5.0); TOTAL PROTEIN 6.5 g/dL (6.3-8.2); TRIGLYCERIDES 138 mg/dL (<150)
[2020-08-05 10:32] LABS: DIRECT LDL 149 mg/dL (<100)
== END ==
LOC: OD 08:42
PROVIDERS: ATTEND Family Medicine
DX: Z13.9 Encounter for screening, unspecified (principal)
CPT/HCPCS: 36415; 80053; 80061; 81001; 83036; 84443; 85025